=== PATIENT | female | born 1950 | race Caucasian/White ===

== ENCOUNTER 2016-09-08 15:36 | Inpatient (IN) | payer OTHER ==
[~2016-09-08] VITALS: Ht 165.1 cm; Wt 94.7 kg
[~2016-09-08 15:36] MED LIST: ACETAMINOPHEN-1 EAC1 PO; ADULT LOW DOSE81 M1 PO; ALDACTONE100 MG PO; ALEVE220 MG PO; AMARYL4 MG PO; AMLODIPINE BESY10 MG PO; AMLODIPINE BESYL5 MG PO; APRESOLINE100 MG PO; AUGMENTIN875 MG PO; CARAFATE1 GM PO; CEFDINIR300 MG PO; CENTRUM SILVER1 EAC3 PO; CORGARD20 MG PO; CYANOCOBALAM1000 MCG PO; Chronulac,Cephulac,E PO; DIABETES MED PO; DILAUDID2 MG PO; DYAZIDE, MA1 CAPSULE PO; Dyazide, Maxzide 37. PO; FEOSOL325 MG PO; FUROSEMIDE20 MG PO; Feosol PO; GLUCOPHAGE1000 MG PO; GLUCOPHAGE500 MG PO; HYDRALAZINE HCL25 MG PO; HYDROCHLOROTHIA25 MG PO; IRON27 MG PO; JANUVIA100 MG PO; KAYEXALATE15 GM/60 M PO; LACTULOSE10 GM/151 PO; LASIX20 MG PO; LEVEMIR FL100 UNIT/1 SC; LEVEMIR FL100 UNITS/ SC; LEVEMIR100 UNIT/2 SC; LEVOFLOXACIN500 MG PO; LEVOFLOXACIN750 MG PO; LEVOTHROID,SY0.05 MG PO; LEVOTHROID112 MCG PO; LEVOTHYROXINE112 MCG PO; LEVOTHYROXINE88 MCG PO; LISINOPRIL-HCT1 EACH PO; LISINOPRIL10 MG PO; LOPERAMIDE2 MG PO; LORTAB 5-325 M1 EACH PO; Levothroid,Synthroid PO; MOBIC15 MG PO; MOBIC7.5 MG PO; MULTIVITAMIN1 EAC1 PO; NADOLOL20 MG PO; NORVASC5 MG PO; OMEPRAZOLE40 M1 PO; PANTOPRAZOLE SO40 MG PO; PEPTO BISMOL240 ML PO; PRINZIDE 10-121 EACH PO; PROTONIX40 MG PO; SPIRONOLACTONE100 MG PO; SPIRONOLACTONE25 MG PO; SYNTHROID125 MCG PO; TRADJENTA5 MG PO; Theragran-M,Centrum, PO; Toprol XL PO; VITAMIN B-1250 MC3 PO; XIFAXAN550 MG PO; ZOCOR20 MG PO
[2016-09-08 16:50] LABS: HEMATOCRIT 26.5 % (36.0-46.0); MCH 24.1 PG (29.0-34.0); MCHC 31.3 G/DL (30.0-36.0); MCV 76.8 FL (83-99); MEAN PLAT.VOLUME 12.1 uM^3 (9.5-12.4); PLATELET COUNT 109 K/uL (156-360); RBC DIS.WIDTH-CV 16.2 % (11.8-14.6); RED BLOOD COUNT 3.45 M/uL (3.80-5.20)
[2016-09-08 17:07] LABS: CHLORIDE 109 mEq/L (99-109); SODIUM 133 mEq/L (136-147)
[2016-09-08 17:09] LABS: GLUCOSE 118 mg/dL (70-99)
[2016-09-08 17:11] LABS: ANION GAP 11 MEQ/L (2-14); TOTAL BILIRUBIN 0.9 mg/dL (0.0-1.0)
[2016-09-08 17:13] LABS: ALKALINE PHOSPHATASE 175 IU/L (3-129); GFR ESTIMATE (CALCULATED) 12 mL/min/
[2016-09-08 17:14] LABS: UREA NITROGEN (BUN) 63 mg/dL (9-23)
[2016-09-08 17:16] LABS: LIPASE 63 U/L (1.0-51.0)
[2016-09-08 17:44] LABS: POTASSIUM 6.5 mEq/L (3.7-5.4)
[2016-09-08 18:25] LABS: EOSINOPHIL (%) 1.3 % (0-5); IMMATURE GRANULOCYTE (%) 0.3 % (0.0-0.7); IMMATURE GRANULOCYTE COUNT 0.1 K/uL; LYMPHOCYTE COUNT 0.2 K/uL (1.0-2.8); MONOCYTE (%) 12.1 % (3-12); MONOCYTE COUNT 0.4 K/uL (0-0.8); NEUTROPHIL (%) 78.1 % (45-76); NEUTROPHIL COUNT 2.4 K/uL (1.8-6.4)
[2016-09-08 18:28] LABS: MAGNESIUM 2.9 mg/dL (1.3-2.7)
[2016-09-08 18:33] LABS: INTER. NORMALIZED RATIO 1.2; PROTHROMBIN TIME 12.2 (9.2-11.2); PTT 42.5 (25-32)
[2016-09-08] MEDS ORDERED: LASIX40 MG PO (20:51)
[2016-09-08 21:22] LABS: TYPE OF FLUID PERITONEAL
[2016-09-08 21:42] LABS: ADD MIUA? NO; BILIRUBIN NEGATIVE; BLOOD NEGATIVE; COLOR YELLOW ((YELLOW)); GLUCOSE (STRIP) NEGATIVE; KETONES NEGATIVE; LEUKOCYTES NEGATIVE; NITRITE NEGATIVE; PH, URINE 5.5 (5-8); PROTEIN (STRIP) NEGATIVE; SPECIFIC GRAVITY 1.013 (1.000-1.030); UCUL ADDED? NO; UROBILINOGEN 0.2 MG/DL (0.2-1.0)
[2016-09-08 21:43] LABS: BODY FLUID RBC'S 10000 /MM^3 (0-100); BODY FLUID WBC'S 153 /MM^3 (0-500)
[2016-09-08 21:54] LABS: BODY FLUID EOSINOPHILS 0 % (0-25); MONO RAW COUNT 77; MONONUCLEAR WBC'S 77 %; POLY RAW COUNT 23; POLYNUCLEAR WBC'S 23 % (0-25)
[2016-09-08 23:19] LABS: CHLORIDE 110 mEq/L (99-109); POTASSIUM 5.7 mEq/L (3.7-5.4); SODIUM 137 mEq/L (136-147)
[2016-09-08 23:20] LABS: MAGNESIUM 2.7 mg/dL (1.3-2.7)
[2016-09-08 23:21] LABS: GLUCOSE 112 mg/dL (70-99)
[2016-09-08 23:23] LABS: ANION GAP 11 MEQ/L (2-14)
[2016-09-08 23:25] LABS: GFR ESTIMATE (CALCULATED) 12 mL/min/
[2016-09-08 23:26] LABS: UREA NITROGEN (BUN) 61 mg/dL (9-23)
[2016-09-09] VITALS (13 sets, daily range): BP systolic 114–130; BP diastolic 47–64
[2016-09-09 07:21] LABS: HEMATOCRIT 22.3 % (36.0-46.0); MCH 24.2 PG (29.0-34.0); MCHC 31.4 G/DL (30.0-36.0); MCV 77.2 FL (83-99); MEAN PLAT.VOLUME 11.2 uM^3 (9.5-12.4); PLATELET COUNT 82 K/uL (156-360); RBC DIS.WIDTH-SD 42.7 % (39-53); RED BLOOD COUNT 2.89 M/uL (3.80-5.20); WHITE BLOOD COUNT 2.2 K/uL (4.1-10.2)
[2016-09-09 07:37] LABS: ANION GAP 9 MEQ/L (2-14); CHLORIDE 109 MEQ/L (99-109); GFR ESTIMATE (CALCULATED) 13 mL/min/; GLUCOSE 144 mg/dL (70-99); POTASSIUM 5.7 MEQ/L (3.7-5.4); SAMPLE HEMOLYSIS CHECK 0; SAMPLE ICTERIC CHECK 0; SAMPLE LIPEMIA CHECK 0; SODIUM 138 MEQ/L (136-147); UREA NITROGEN (BUN) 61 mg/dL (9-23)
[2016-09-09 14:22] LABS: HEMATOCRIT 22.1 % (36.0-46.0)
[2016-09-09 15:26] LABS: IRON 18 MCG/DL (35-150)
[2016-09-10] VITALS (8 sets, daily range): BP systolic 113–126; BP diastolic 51–64
[2016-09-10 07:47] LABS: MCH 24.8 PG (29.0-34.0); MCHC 31.7 G/DL (30.0-36.0); MCV 78.2 FL (83-99); MEAN PLAT.VOLUME 10.8 uM^3 (9.5-12.4); PLATELET COUNT 69 K/uL (156-360); RBC DIS.WIDTH-CV 16.7 % (11.8-14.6); RBC DIS.WIDTH-SD 47.9 % (39-53); RED BLOOD COUNT 3.07 M/uL (3.80-5.20); WHITE BLOOD COUNT 2.1 K/uL (4.1-10.2)
[2016-09-10 08:10] LABS: EOSINOPHIL (%) 2.3 % (0-5); EOSINOPHIL COUNT 0.1 K/uL (0-0.3); IMMATURE GRANULOCYTE (%) 0.5 % (0.0-0.7); LYMPHOCYTE COUNT 0.3 K/uL (1.0-2.8); MONOCYTE (%) 15.9 % (3-12); MONOCYTE COUNT 0.3 K/uL (0-0.8); NEUTROPHIL (%) 66.4 % (45-76); NEUTROPHIL COUNT 1.4 K/uL (1.8-6.4)
[2016-09-10 08:14] LABS: ALKALINE PHOSPHATASE 121 IU/L (3-129); ANION GAP 8 MEQ/L (2-14); CHLORIDE 109 MEQ/L (99-109); GFR ESTIMATE (CALCULATED) 15 mL/min/; GLUCOSE 115 mg/dL (70-99); POTASSIUM 4.8 MEQ/L (3.7-5.4); SAMPLE HEMOLYSIS CHECK 0; SAMPLE ICTERIC CHECK 0; SAMPLE LIPEMIA CHECK 0; SODIUM 138 MEQ/L (136-147); TOTAL BILIRUBIN 0.9 MG/DL (0.0-1.0); UREA NITROGEN (BUN) 56 mg/dL (9-23)
[2016-09-10 14:41] LABS: UR CREATININE CONCENTRATION 67.1 MG/DL
[2016-09-11 03:31] VITALS: BP 119/55
[2016-09-11 05:57] LABS: ANION GAP 10 MEQ/L (2-14); CHLORIDE 107 MEQ/L (99-109); GFR ESTIMATE (CALCULATED) 16 mL/min/; GLUCOSE 116 mg/dL (70-99); POTASSIUM 4.5 MEQ/L (3.7-5.4); SAMPLE HEMOLYSIS CHECK 0; SAMPLE ICTERIC CHECK 0; SAMPLE LIPEMIA CHECK 0; SODIUM 136 MEQ/L (136-147); UREA NITROGEN (BUN) 59 mg/dL (9-23)
[2016-09-11 07:32] LABS: EOSINOPHIL (%) 0.2 % (0-5); HEMATOCRIT 24.6 % (36.0-46.0); LYMPHOCYTE COUNT 0.1 K/uL (1.0-2.8); MCH 24.7 PG (29.0-34.0); MCHC 31.3 G/DL (30.0-36.0); MCV 78.8 FL (83-99); MONOCYTE (%) 5.4 % (3-12); MONOCYTE COUNT 0.3 K/uL (0-0.8); NEUTROPHIL (%) 91.8 % (45-76); NEUTROPHIL COUNT 4.9 K/uL (1.8-6.4); RBC DIS.WIDTH-CV 16.9 % (11.8-14.6); RBC DIS.WIDTH-SD 48.7 % (39-53); RED BLOOD COUNT 3.12 M/uL (3.80-5.20)
[2016-09-11 07:38] LABS: WHITE BLOOD COUNT 5.4 K/uL (4.1-10.2)
[2016-09-11 08:00] LABS: PLAT.SUFFICIENCY DECREASED; PLATELET COUNT 63 K/uL (156-360); USER ID SDF
[2016-09-11 08:15] VITALS: BP 114/53
[2016-09-11 11:30] VITALS: BP 126/57
[2016-09-11 14:04] LABS: TYPE OF FLUID PERITONEAL
[2016-09-11 14:17] LABS: BODY FLUID RBC'S 13000 /MM^3 (0-100)
[2016-09-11 14:28] LABS: BODY FLUID WBC'S 17034 /MM^3 (0-500)
[2016-09-11 14:38] LABS: BODY FLUID EOSINOPHILS 0 % (0-25); MONO RAW COUNT 3; MONONUCLEAR WBC'S 3 %; POLY RAW COUNT 97; POLYNUCLEAR WBC'S 97 % (0-25)
[2016-09-11 15:09] LABS: BODY FLUID LDH 104 IU/L; BODY FLUID PROTEIN < 3.0 G/DL
[2016-09-11 16:20] VITALS: BP 121/57
[2016-09-11 17:13] VITALS: BP 111/65
[2016-09-11 19:59] VITALS: BP 124/60
[2016-09-12] VITALS (8 sets, daily range): BP systolic 99–141; BP diastolic 53–66
[2016-09-12 06:37] LABS: ANION GAP 9 MEQ/L (2-14); CHLORIDE 106 MEQ/L (99-109); GFR ESTIMATE (CALCULATED) 17 mL/min/; GLUCOSE 105 mg/dL (70-99); POTASSIUM 4.4 MEQ/L (3.7-5.4); SAMPLE HEMOLYSIS CHECK 0; SAMPLE ICTERIC CHECK 0; SAMPLE LIPEMIA CHECK 0; SODIUM 134 MEQ/L (136-147); UREA NITROGEN (BUN) 64 mg/dL (9-23)
[2016-09-12 07:32] LABS: HEMATOCRIT 23.4 % (36.0-46.0); MCH 24.7 PG (29.0-34.0); MCHC 31.6 G/DL (30.0-36.0); MCV 78.3 FL (83-99); MEAN PLAT.VOLUME 11.8 uM^3 (9.5-12.4); PLATELET COUNT 64 K/uL (156-360); RBC DIS.WIDTH-CV 17.2 % (11.8-14.6); RBC DIS.WIDTH-SD 49.2 % (39-53); RED BLOOD COUNT 2.99 M/uL (3.80-5.20); WHITE BLOOD COUNT 4.5 K/uL (4.1-10.2)
[2016-09-12 07:34] LABS: EOSINOPHIL (%) 0.7 % (0-5); LYMPHOCYTE COUNT 0.4 K/uL (1.0-2.8); MONOCYTE (%) 5.5 % (3-12); MONOCYTE COUNT 0.3 K/uL (0-0.8); NEUTROPHIL (%) 85.6 % (45-76); NEUTROPHIL COUNT 3.9 K/uL (1.8-6.4)
[2016-09-13 04:00] VITALS: BP 111/61
[2016-09-13 04:50] LABS: BODY FLUID PH 7.5 (())
[2016-09-13 07:17] LABS: HEMATOCRIT 23.1 % (36.0-46.0); MCH 24.5 PG (29.0-34.0); MCHC 31.6 G/DL (30.0-36.0); MCV 77.5 FL (83-99); MEAN PLAT.VOLUME 10.9 uM^3 (9.5-12.4); PLATELET COUNT 66 K/uL (156-360); RBC DIS.WIDTH-CV 17.2 % (11.8-14.6); RBC DIS.WIDTH-SD 48.6 % (39-53); RED BLOOD COUNT 2.98 M/uL (3.80-5.20); WHITE BLOOD COUNT 3.9 K/uL (4.1-10.2)
[2016-09-13 07:29] VITALS: BP 110/57
[2016-09-13 07:39] LABS: ANION GAP 9 MEQ/L (2-14); CHLORIDE 104 MEQ/L (99-109); GFR ESTIMATE (CALCULATED) 19 mL/min/; GLUCOSE 108 mg/dL (70-99); POTASSIUM 4.5 MEQ/L (3.7-5.4); SAMPLE HEMOLYSIS CHECK 0; SAMPLE ICTERIC CHECK 0; SAMPLE LIPEMIA CHECK 0; SODIUM 132 MEQ/L (136-147); UREA NITROGEN (BUN) 66 mg/dL (9-23)
[2016-09-13 07:41] LABS: EOSINOPHIL (%) 1.6 % (0-5); EOSINOPHIL COUNT 0.1 K/uL (0-0.3); IMMATURE GRANULOCYTE (%) 0.3 % (0.0-0.7); LYMPHOCYTE COUNT 0.2 K/uL (1.0-2.8); MONOCYTE (%) 7.3 % (3-12); MONOCYTE COUNT 0.3 K/uL (0-0.8); NEUTROPHIL COUNT 3.3 K/uL (1.8-6.4)
[2016-09-13 11:25] VITALS: BP 103/50
[2016-09-13 15:31] VITALS: BP 138/66
[2016-09-13 18:50] VITALS: BP 137/63
[2016-09-13 23:10] VITALS: BP 122/60
[2016-09-14 03:25] VITALS: BP 125/60
[2016-09-14 08:04] LABS: EOSINOPHIL (%) 0.8 % (0-5); HEMATOCRIT 23.3 % (36.0-46.0); IMMATURE GRANULOCYTE (%) 0.6 % (0.0-0.7); LYMPHOCYTE COUNT 0.2 K/uL (1.0-2.8); MCH 24.6 PG (29.0-34.0); MCHC 31.8 G/DL (30.0-36.0); MCV 77.4 FL (83-99); MONOCYTE COUNT 0.5 K/uL (0-0.8); NEUTROPHIL (%) 79.9 % (45-76); NEUTROPHIL COUNT 2.9 K/uL (1.8-6.4); RBC DIS.WIDTH-CV 17.1 % (11.8-14.6); RED BLOOD COUNT 3.01 M/uL (3.80-5.20); WHITE BLOOD COUNT 3.6 K/uL (4.1-10.2)
[2016-09-14 08:08] VITALS: BP 112/54
[2016-09-14 08:08] LABS: PLAT.SUFFICIENCY DECREASED; PLATELET COUNT 65 K/uL (156-360); USER ID CL
[2016-09-14 08:10] LABS: ALKALINE PHOSPHATASE 169 IU/L (3-129); ANION GAP 8 MEQ/L (2-14); CHLORIDE 101 MEQ/L (99-109); GFR ESTIMATE (CALCULATED) 18 mL/min/; GLUCOSE 136 mg/dL (70-99); POTASSIUM 4.6 MEQ/L (3.7-5.4); SAMPLE HEMOLYSIS CHECK 0; SAMPLE ICTERIC CHECK 0; SAMPLE LIPEMIA CHECK 0; SODIUM 128 MEQ/L (136-147); UREA NITROGEN (BUN) 67 mg/dL (9-23)
[2016-09-14 12:00] VITALS: BP 142/65
[2016-09-14 16:00] VITALS: BP 122/58
[2016-09-14 20:10] VITALS: BP 139/63
[2016-09-14 23:20] VITALS: BP 106/53
[2016-09-15] VITALS (7 sets, daily range): BP systolic 116–141; BP diastolic 54–65
[2016-09-15 06:47] LABS: ALKALINE PHOSPHATASE 184 IU/L (3-129); ANION GAP 10 MEQ/L (2-14); CHLORIDE 103 MEQ/L (99-109); GFR ESTIMATE (CALCULATED) 17 mL/min/; GLUCOSE 137 mg/dL (70-99); POTASSIUM 4.7 MEQ/L (3.7-5.4); SAMPLE HEMOLYSIS CHECK 0; SAMPLE ICTERIC CHECK 0; SAMPLE LIPEMIA CHECK 0; SODIUM 131 MEQ/L (136-147); TOTAL BILIRUBIN 1.1 MG/DL (0.0-1.0); UREA NITROGEN (BUN) 71 mg/dL (9-23)
[2016-09-15 07:10] LABS: EOSINOPHIL (%) 1.1 % (0-5); HEMATOCRIT 22.3 % (36.0-46.0); IMMATURE GRANULOCYTE (%) 0.3 % (0.0-0.7); LYMPHOCYTE COUNT 0.5 K/uL (1.0-2.8); MCH 24.7 PG (29.0-34.0); MCHC 32.3 G/DL (30.0-36.0); MCV 76.4 FL (83-99); MONOCYTE (%) 11.7 % (3-12); MONOCYTE COUNT 0.4 K/uL (0-0.8); NEUTROPHIL (%) 73.6 % (45-76); NEUTROPHIL COUNT 2.7 K/uL (1.8-6.4); RBC DIS.WIDTH-CV 16.9 % (11.8-14.6); RBC DIS.WIDTH-SD 46.4 % (39-53); RED BLOOD COUNT 2.92 M/uL (3.80-5.20); WHITE BLOOD COUNT 3.7 K/uL (4.1-10.2)
[2016-09-15 07:37] LABS: PLAT.SUFFICIENCY DECREASED; PLATELET COUNT 59 K/uL (156-360); USER ID CL
[2016-09-15 09:47] LABS: TYPE OF FLUID PARACENTESIS
[2016-09-15 10:14] LABS: BODY FLUID RBC'S 9000 /MM^3 (0-100); BODY FLUID WBC'S 2276 /MM^3 (0-500)
[2016-09-15 10:36] LABS: BODY FLUID EOSINOPHILS 0 % (0-25); MONO RAW COUNT 14; MONONUCLEAR WBC'S 14 %; POLY RAW COUNT 86; POLYNUCLEAR WBC'S 86 % (0-25)
[2016-09-15 13:17] LABS: ADD MIUA? YES; BILIRUBIN SMALL; BLOOD NEGATIVE; COLOR DK YELLOW ((YELLOW)); GLUCOSE (STRIP) NEGATIVE; KETONES NEGATIVE; LEUKOCYTES NEGATIVE; NITRITE NEGATIVE; PROTEIN (STRIP) TRACE; SPECIFIC GRAVITY 1.014 (1.000-1.030); UROBILINOGEN 0.2 MG/DL (0.2-1.0)
[2016-09-15 13:22] LABS: BACTERIA NONE SEEN; CASTS NONE SEEN /LPF; CRYSTALS NONE SEEN; EPITHELIAL CELLS RARE; MUCUS NONE SEEN; PATHOLOGICAL CAST NONE SEEN; RED BLOOD CELLS 0-5 /HPF (0-5); SMALL ROUND CELL NONE SEEN; UCUL ADDED? NO; WHITE BLOOD CELLS 0-5 /HPF (0-5); YEAST-LIKE CELL NONE SEEN
[2016-09-16 03:28] VITALS: BP 126/58
[2016-09-16 06:45] LABS: HEMATOCRIT 23.4 % (36.0-46.0); MCH 24.3 PG (29.0-34.0); MCHC 31.6 G/DL (30.0-36.0); MEAN PLAT.VOLUME 11.6 uM^3 (9.5-12.4); PLATELET COUNT 66 K/uL (156-360); RBC DIS.WIDTH-SD 47.4 % (39-53); RED BLOOD COUNT 3.04 M/uL (3.80-5.20); WHITE BLOOD COUNT 4.3 K/uL (4.1-10.2)
[2016-09-16 07:06] LABS: EOSINOPHIL (%) 1.2 % (0-5); EOSINOPHIL COUNT 0.1 K/uL (0-0.3); IMMATURE GRANULOCYTE (%) 0.9 % (0.0-0.7); LYMPHOCYTE COUNT 0.4 K/uL (1.0-2.8); MONOCYTE (%) 7.7 % (3-12); MONOCYTE COUNT 0.3 K/uL (0-0.8); NEUTROPHIL (%) 80.5 % (45-76); NEUTROPHIL COUNT 3.5 K/uL (1.8-6.4)
[2016-09-16 08:52] VITALS: BP 134/64
[2016-09-16 09:03] LABS: ALKALINE PHOSPHATASE 206 IU/L (3-129); ANION GAP 8 MEQ/L (2-14); CHLORIDE 104 MEQ/L (99-109); GFR ESTIMATE (CALCULATED) 21 mL/min/; GLUCOSE 140 mg/dL (70-99); POTASSIUM 4.8 MEQ/L (3.7-5.4); SAMPLE HEMOLYSIS CHECK 0; SAMPLE ICTERIC CHECK 0; SAMPLE LIPEMIA CHECK 0; SODIUM 131 MEQ/L (136-147); TOTAL BILIRUBIN 1.1 MG/DL (0.0-1.0); UREA NITROGEN (BUN) 71 mg/dL (9-23)
[2016-09-16 11:22] VITALS: BP 130/66
[2016-09-16 15:37] VITALS: BP 110/62; BP 165/69
[2016-09-16 19:47] VITALS: BP 126/59
[2016-09-16 23:27] VITALS: BP 134/60
[2016-09-17 04:06] VITALS: BP 106/53
[2016-09-17 08:15] VITALS: BP 123/58
[2016-09-17 11:33] VITALS: BP 130/58
[2016-09-17 11:54] LABS: ANION GAP 13 MEQ/L (2-14); CHLORIDE 101 MEQ/L (99-109); GFR ESTIMATE (CALCULATED) 22 mL/min/; POTASSIUM 5.3 MEQ/L (3.7-5.4); SAMPLE HEMOLYSIS CHECK 0; SAMPLE ICTERIC CHECK 0; SAMPLE LIPEMIA CHECK 0; SODIUM 131 MEQ/L (136-147); UREA NITROGEN (BUN) 73 mg/dL (9-23)
[2016-09-17 11:56] LABS: GLUCOSE 264 mg/dL (70-99)
[2016-09-17 12:01] LABS: HEMATOCRIT 24.5 % (36.0-46.0); MCH 24.3 PG (29.0-34.0); MCHC 31.8 G/DL (30.0-36.0); MCV 76.3 FL (83-99); PLATELET COUNT 84 K/uL (156-360); RBC DIS.WIDTH-CV 17.1 % (11.8-14.6); RBC DIS.WIDTH-SD 46.7 % (39-53); RED BLOOD COUNT 3.21 M/uL (3.80-5.20)
[2016-09-17 12:04] LABS: WHITE BLOOD COUNT 5.7 K/uL (4.1-10.2)
[2016-09-17] MEDS ORDERED: AMLODIPINE BESYL5 MG PO (12:27)
[2016-09-17] MEDS ORDERED: SPIRONOLACTONE50 MG PO (12:27)
[2016-09-17] MEDS ORDERED: NABI650T PO (12:27)
[2016-09-17] MEDS ORDERED: ROCEPHIN1 GM/50 ML IV (12:28)
== END 2016-09-17 15:04 | disposition home or self-care (01) | DRG 433 ==
LOC: EME 15:36 → 2EAST 22:26 → EDOF 22:26 → 2EAST 23:57
PROVIDERS: Emergency Medicine; Hospitalist; Internal Medicine; Radiology Diagnostic Radiology; Specialist
PROC: 0W9G3ZZ Drainage of Peritoneal Cavity, Percutaneous Approach (ICD-10-PCS; principal; 2016-09-08)
PROC: 30233N1 Transfusion of Nonautologous Red Blood Cells into Peripheral Vein, Percutaneous Approach (ICD-10-PCS; 2016-09-09)
PROC: 0W9G3ZZ Drainage of Peritoneal Cavity, Percutaneous Approach (ICD-10-PCS; 2016-09-11)
PROC: 0W9G3ZZ Drainage of Peritoneal Cavity, Percutaneous Approach (ICD-10-PCS; 2016-09-15)
DX: K74.69 Other cirrhosis of liver (principal); R18.8 Other ascites; N17.9 Acute kidney failure, unspecified; D61.818 Other pancytopenia; E87.2 Acidosis; K76.6 Portal hypertension; D69.6 Thrombocytopenia, unspecified; E87.5 Hyperkalemia; I27.2 Other secondary pulmonary hypertension; E78.1 Pure hyperglyceridemia; N18.3 Chronic kidney disease, stage 3 (moderate); I12.9 Hypertensive chronic kidney disease with stage 1 through stage 4 chronic kidney disease, or unspecified chronic kidney disease; E11.9 Type 2 diabetes mellitus without complications; E03.9 Hypothyroidism, unspecified; K31.89 Other diseases of stomach and duodenum; K43.9 Ventral hernia without obstruction or gangrene; Z95.0 Presence of cardiac pacemaker
CPT/HCPCS: 36415; 71010; 74176; 76770; 80048; 80048 91; 80053; 80069; 81003; 82150 91; 82272; 82570; 82945; 82948; 83540; 83605; 83615 91; 83690; 83735; 83986 90; 84157; 84300; 84466; 84540; 85014; 85018; 85025; 85027; 85610; 85730; 86850; 86870; 86880; 86900; 86901; 86905; 86920; 87040; 87070; 87075; 87205; 88108; 89051; 93005; 94799; 99281; 99285; J0696; J1170; J1335; J1815; J7050; P9016; P9047

== ENCOUNTER 2016-09-21 14:45 | Inpatient (IN) | payer OTHER ==
[~2016-09-21] VITALS: Ht 165.1 cm; Wt 74.1 kg
[~2016-09-21 14:45] MED LIST changes: +LASIX40 MG PO; +NABI650T PO; +ROCEPHIN1 GM/50 ML IV; +SPIRONOLACTONE50 MG PO
[2016-09-21 15:24] LABS: HEMATOCRIT 22.8 % (36.0-46.0); MCH 24.6 PG (29.0-34.0); MCHC 32.5 G/DL (30.0-36.0); MCV 75.7 FL (83-99); RBC DIS.WIDTH-CV 17.7 % (11.8-14.6); RED BLOOD COUNT 3.01 M/uL (3.80-5.20); WHITE BLOOD COUNT 6.3 K/uL (4.1-10.2)
[2016-09-21 15:25] LABS: MEAN PLAT.VOLUME 11.8 uM^3 (9.5-12.4); PLATELET COUNT 115 K/uL (156-360)
[2016-09-21 15:32] LABS: CHLORIDE 105 mEq/L (99-109); POTASSIUM 5.9 mEq/L (3.7-5.4); SODIUM 130 mEq/L (136-147)
[2016-09-21 15:34] LABS: GLUCOSE 257 mg/dL (70-99)
[2016-09-21 15:35] LABS: INTER. NORMALIZED RATIO 1.2; PROTHROMBIN TIME 12.4 (9.2-11.2)
[2016-09-21 15:36] LABS: ANION GAP 10 MEQ/L (2-14); TOTAL BILIRUBIN 1.1 mg/dL (0.0-1.0)
[2016-09-21 15:38] LABS: ALKALINE PHOSPHATASE 296 IU/L (3-129); GFR ESTIMATE (CALCULATED) 19 mL/min/
[2016-09-21 15:39] LABS: UREA NITROGEN (BUN) 80 mg/dL (9-23)
[2016-09-21 15:41] LABS: LIPASE 72 U/L (1.0-51.0)
[2016-09-21 18:08] LABS: ADD MIUA? NO; BILIRUBIN NEGATIVE; BLOOD NEGATIVE; COLOR DK YELLOW ((YELLOW)); GLUCOSE (STRIP) NEGATIVE; KETONES NEGATIVE; LEUKOCYTES NEGATIVE; NITRITE NEGATIVE; PH, URINE 5.5 (5-8); PROTEIN (STRIP) TRACE; SPECIFIC GRAVITY 1.021 (1.000-1.030); UCUL ADDED? NO; UROBILINOGEN 0.2 MG/DL (0.2-1.0)
[2016-09-22] VITALS (14 sets, daily range): BP systolic 116–173; BP diastolic 56–75
[2016-09-22 07:23] LABS: ANION GAP 8 MEQ/L (2-14); CHLORIDE 103 MEQ/L (99-109); GFR ESTIMATE (CALCULATED) 22 mL/min/; GLUCOSE 169 mg/dL (70-99); POTASSIUM 6.1 MEQ/L (3.7-5.4); SAMPLE HEMOLYSIS CHECK 0; SAMPLE ICTERIC CHECK 0; SAMPLE LIPEMIA CHECK 0; SODIUM 128 MEQ/L (136-147); UREA NITROGEN (BUN) 77 mg/dL (9-23)
[2016-09-22 07:33] LABS: EOSINOPHIL (%) 1.1 % (0-5); EOSINOPHIL COUNT 0.1 K/uL (0-0.3); HEMATOCRIT 21.8 % (36.0-46.0); IMMATURE GRANULOCYTE (%) 0.3 % (0.0-0.7); LYMPHOCYTE COUNT 0.5 K/uL (1.0-2.8); MCH 24.4 PG (29.0-34.0); MCHC 32.1 G/DL (30.0-36.0); MCV 75.8 FL (83-99); MEAN PLAT.VOLUME 11.3 uM^3 (9.5-12.4); MONOCYTE (%) 4.1 % (3-12); MONOCYTE COUNT 0.3 K/uL (0-0.8); NEUTROPHIL (%) 88.1 % (45-76); NEUTROPHIL COUNT 6.7 K/uL (1.8-6.4); PLATELET COUNT 116 K/uL (156-360); RBC DIS.WIDTH-SD 49.4 % (39-53); RED BLOOD COUNT 2.87 M/uL (3.80-5.20); WHITE BLOOD COUNT 7.6 K/uL (4.1-10.2)
[2016-09-22] MEDS ORDERED: NABI650T PO (11:44)
[2016-09-22] MEDS ORDERED: ALDACTONE50 MG PO (11:44)
[2016-09-22] MEDS ORDERED: NORVASC5 MG PO (11:44)
[2016-09-22] MEDS ORDERED: ENULOSE10 GM/15 M PO (11:45)
[2016-09-22] MEDS ORDERED: CARAFATE100 MG/ML PO (11:45)
[2016-09-22] MEDS ORDERED: LASIX40 MG PO (11:46)
[2016-09-22] MEDS ORDERED: HYDRALAZINE HC100 MG PO (11:46)
[2016-09-22] MEDS ORDERED: XIFAXAN550 MG PO (11:47)
[2016-09-22] MEDS ORDERED: SYNTHROID88 MCG PO (11:47)
[2016-09-22] MEDS ORDERED: OMEPRAZOLE40 M1 PO (11:48)
[2016-09-22] MEDS ORDERED: METFORMIN HCL500 MG PO (12:00)
[2016-09-22 13:50] LABS: ANION GAP 9 MEQ/L (2-14); CHLORIDE 100 MEQ/L (99-109); GFR ESTIMATE (CALCULATED) 23 mL/min/; GLUCOSE 222 mg/dL (70-99); POTASSIUM 6.3 MEQ/L (3.7-5.4); SAMPLE HEMOLYSIS CHECK 0; SAMPLE ICTERIC CHECK 0; SAMPLE LIPEMIA CHECK 0; SODIUM 126 MEQ/L (136-147); UREA NITROGEN (BUN) 76 mg/dL (9-23)
[2016-09-22] MEDS ORDERED: LEVEMIR100 UNIT/2 SC (13:58)
[2016-09-22] MEDS ORDERED: TRADJENTA5 MG PO (13:59)
[2016-09-22 18:17] LABS: ANION GAP 11 MEQ/L (2-14); CHLORIDE 101 MEQ/L (99-109); POTASSIUM 5.6 MEQ/L (3.7-5.4); SAMPLE HEMOLYSIS CHECK 0; SAMPLE ICTERIC CHECK 0; SAMPLE LIPEMIA CHECK 0; SODIUM 129 MEQ/L (136-147)
[2016-09-22 18:22] LABS: GFR ESTIMATE (CALCULATED) 21 mL/min/; GLUCOSE 209 mg/dL (70-99); UREA NITROGEN (BUN) 80 mg/dL (9-23)
[2016-09-23] VITALS (11 sets, daily range): BP systolic 117–148; BP diastolic 52–84
[2016-09-23 06:42] LABS: HEMATOCRIT 22.4 % (36.0-46.0); MCH 24.2 PG (29.0-34.0); MCHC 32.1 G/DL (30.0-36.0); MCV 75.2 FL (83-99); MEAN PLAT.VOLUME 10.8 uM^3 (9.5-12.4); PLATELET COUNT 113 K/uL (156-360); RBC DIS.WIDTH-CV 17.7 % (11.8-14.6); RBC DIS.WIDTH-SD 48.6 % (39-53); RED BLOOD COUNT 2.98 M/uL (3.80-5.20); WHITE BLOOD COUNT 5.8 K/uL (4.1-10.2)
[2016-09-23 07:15] LABS: ALKALINE PHOSPHATASE 238 IU/L (3-129); ANION GAP 9 MEQ/L (2-14); CHLORIDE 101 MEQ/L (99-109); GFR ESTIMATE (CALCULATED) 20 mL/min/; GLUCOSE 166 mg/dL (70-99); POTASSIUM 4.6 MEQ/L (3.7-5.4); SAMPLE HEMOLYSIS CHECK 0; SAMPLE ICTERIC CHECK 0; SAMPLE LIPEMIA CHECK 0; SODIUM 130 MEQ/L (136-147); TOTAL BILIRUBIN 1.2 MG/DL (0.0-1.0); UREA NITROGEN (BUN) 74 mg/dL (9-23)
[2016-09-23 07:24] LABS: EOSINOPHIL (%) 1.2 % (0-5); EOSINOPHIL COUNT 0.1 K/uL (0-0.3); IMMATURE GRANULOCYTE (%) 0.3 % (0.0-0.7); LYMPHOCYTE COUNT 0.3 K/uL (1.0-2.8); MONOCYTE (%) 7.6 % (3-12); MONOCYTE COUNT 0.4 K/uL (0-0.8); NEUTROPHIL (%) 84.9 % (45-76); NEUTROPHIL COUNT 4.9 K/uL (1.8-6.4)
[2016-09-23 16:48] LABS: HEMATOCRIT 25.6 % (36.0-46.0)
[2016-09-24] VITALS: BP 145/68
[2016-09-24 04:00] VITALS: BP 118/55
[2016-09-24 05:49] LABS: ANION GAP 11 MEQ/L (2-14); CHLORIDE 101 MEQ/L (99-109); GFR ESTIMATE (CALCULATED) 21 mL/min/; GLUCOSE 159 mg/dL (70-99); POTASSIUM 4.6 MEQ/L (3.7-5.4); SAMPLE HEMOLYSIS CHECK 0; SAMPLE ICTERIC CHECK 0; SAMPLE LIPEMIA CHECK 0; SODIUM 132 MEQ/L (136-147); UREA NITROGEN (BUN) 69 mg/dL (9-23)
[2016-09-24 05:52] LABS: CARBON DIOXIDE (BICARBONATE) 21.9 MEQ/L (20-31)
[2016-09-24 08:03] VITALS: BP 108/52
[2016-09-24 11:37] VITALS: BP 126/56
[2016-09-24 16:10] VITALS: BP 130/57
[2016-09-24 19:40] VITALS: BP 130/60
[2016-09-25] VITALS (7 sets, daily range): BP systolic 120–135; BP diastolic 56–64
[2016-09-25 06:42] LABS: HEMATOCRIT 25.2 % (36.0-46.0); MCH 24.5 PG (29.0-34.0); MCHC 32.1 G/DL (30.0-36.0); MCV 76.4 FL (83-99); PLATELET COUNT 115 K/uL (156-360); RBC DIS.WIDTH-CV 18.4 % (11.8-14.6); RBC DIS.WIDTH-SD 51.4 % (39-53); WHITE BLOOD COUNT 4.1 K/uL (4.1-10.2)
[2016-09-25 07:06] LABS: ALKALINE PHOSPHATASE 185 IU/L (3-129); ANION GAP 10 MEQ/L (2-14); CHLORIDE 99 MEQ/L (99-109); GFR ESTIMATE (CALCULATED) 24 mL/min/; GLUCOSE 159 mg/dL (70-99); POTASSIUM 4.8 MEQ/L (3.7-5.4); SAMPLE HEMOLYSIS CHECK 0; SAMPLE ICTERIC CHECK 0; SAMPLE LIPEMIA CHECK 0; SODIUM 129 MEQ/L (136-147); TOTAL BILIRUBIN 1.2 MG/DL (0.0-1.0); UREA NITROGEN (BUN) 70 mg/dL (9-23)
[2016-09-25 08:00] LABS: POINT-OF-CARE METER ID UU14174225
[2016-09-25 11:40] LABS: POINT-OF-CARE METER ID UU14174225
[2016-09-25 21:18] LABS: POINT-OF-CARE METER ID UU14174225
[2016-09-26 03:41] VITALS: BP 130/63
[2016-09-26 04:45] LABS: MCH 24.7 PG (29.0-34.0); MCHC 32.4 G/DL (30.0-36.0); MCV 76.2 FL (83-99); MEAN PLAT.VOLUME 11.5 uM^3 (9.5-12.4); PLATELET COUNT 115 K/uL (156-360); RBC DIS.WIDTH-CV 18.6 % (11.8-14.6); RBC DIS.WIDTH-SD 48.6 % (39-53); RED BLOOD COUNT 3.28 M/uL (3.80-5.20); WHITE BLOOD COUNT 4.3 K/uL (4.1-10.2)
[2016-09-26 07:59] VITALS: BP 126/54
[2016-09-26 08:09] LABS: POINT-OF-CARE METER ID UU14174225
[2016-09-26 15:46] VITALS: BP 130/56
[2016-09-26 17:09] LABS: POINT-OF-CARE METER ID UU14174225
[2016-09-27 00:13] VITALS: BP 121/61
[2016-09-27 06:01] LABS: ANION GAP 11 MEQ/L (2-14); CHLORIDE 100 MEQ/L (99-109); GFR ESTIMATE (CALCULATED) 27 mL/min/; GLUCOSE 152 mg/dL (70-99); POTASSIUM 4.2 MEQ/L (3.7-5.4); SAMPLE HEMOLYSIS CHECK 0; SAMPLE ICTERIC CHECK 0; SAMPLE LIPEMIA CHECK 0; SODIUM 132 MEQ/L (136-147); UREA NITROGEN (BUN) 68 mg/dL (9-23); URIC ACID 12.4 mg/dL (3.1-9.2)
[2016-09-27 07:41] VITALS: BP 121/59
[2016-09-27 07:59] LABS: POINT-OF-CARE METER ID UU14174225
[2016-09-27 15:40] VITALS: BP 109/55
[2016-09-27] MEDS ORDERED: NABI650T PO (16:57)
[2016-09-27] MEDS ORDERED: AZITHROMYCIN500 M1 PO (16:58)
[2016-09-27] MEDS ORDERED: LASIX40 MG PO (16:58)
[2016-09-27 23:10] VITALS: BP 129/65
[2016-09-28 07:02] LABS: ANION GAP 10 MEQ/L (2-14); CHLORIDE 99 MEQ/L (99-109); GFR ESTIMATE (CALCULATED) 28 mL/min/; GLUCOSE 217 mg/dL (70-99); POTASSIUM 4.3 MEQ/L (3.7-5.4); SAMPLE HEMOLYSIS CHECK 0; SAMPLE ICTERIC CHECK 0; SAMPLE LIPEMIA CHECK 0; SODIUM 130 MEQ/L (136-147); UREA NITROGEN (BUN) 71 mg/dL (9-23)
[2016-09-28 07:52] LABS: MCH 24.4 PG (29.0-34.0); MCV 76.2 FL (83-99); RBC DIS.WIDTH-CV 18.6 % (11.8-14.6); RBC DIS.WIDTH-SD 51.8 % (39-53); RED BLOOD COUNT 3.28 M/uL (3.80-5.20)
[2016-09-28 07:54] VITALS: BP 135/66
[2016-09-28 08:05] LABS: MEAN PLAT.VOLUME 10.3 uM^3 (9.5-12.4); PLATELET COUNT 88 K/uL (156-360)
[2016-09-28 15:23] VITALS: BP 121/62
[2016-09-28 23:57] VITALS: BP 124/58
[2016-09-29 05:36] LABS: ANION GAP 12 MEQ/L (2-14); CHLORIDE 99 MEQ/L (99-109); GFR ESTIMATE (CALCULATED) 27 mL/min/; GLUCOSE 227 mg/dL (70-99); POTASSIUM 4.7 MEQ/L (3.7-5.4); SAMPLE HEMOLYSIS CHECK 0; SAMPLE ICTERIC CHECK 0; SAMPLE LIPEMIA CHECK 0; SODIUM 131 MEQ/L (136-147); UREA NITROGEN (BUN) 70 mg/dL (9-23)
[2016-09-29 08:01] VITALS: BP 129/65
[2016-09-29 10:32] LABS: HEMATOCRIT 24.9 % (36.0-46.0); MCHC 32.5 G/DL (30.0-36.0); MCV 76.9 FL (83-99); MEAN PLAT.VOLUME 11.8 uM^3 (9.5-12.4); PLATELET COUNT 91 K/uL (156-360); RBC DIS.WIDTH-CV 18.5 % (11.8-14.6); RBC DIS.WIDTH-SD 52.1 % (39-53); RED BLOOD COUNT 3.24 M/uL (3.80-5.20); WHITE BLOOD COUNT 4.2 K/uL (4.1-10.2)
[2016-09-29 15:31] VITALS: BP 118/65
[2016-09-30 00:09] VITALS: BP 138/64
[2016-09-30 05:55] LABS: ANION GAP 14 MEQ/L (2-14); CHLORIDE 98 MEQ/L (99-109); GFR ESTIMATE (CALCULATED) 30 mL/min/; GLUCOSE 221 mg/dL (70-99); POTASSIUM 4.2 MEQ/L (3.7-5.4); SAMPLE HEMOLYSIS CHECK 0; SAMPLE ICTERIC CHECK 0; SAMPLE LIPEMIA CHECK 0; SODIUM 132 MEQ/L (136-147); UREA NITROGEN (BUN) 72 mg/dL (9-23)
[2016-09-30 07:07] VITALS: BP 119/59
[2016-09-30 15:25] VITALS: BP 123/58
[2016-10-01 00:15] VITALS: BP 135/66
[2016-10-01 07:04] LABS: HEMATOCRIT 23.4 % (36.0-46.0); MCH 24.7 PG (29.0-34.0); MCHC 31.6 G/DL (30.0-36.0); MEAN PLAT.VOLUME 10.9 uM^3 (9.5-12.4); PLATELET COUNT 66 K/uL (156-360); RBC DIS.WIDTH-CV 18.7 % (11.8-14.6); RBC DIS.WIDTH-SD 53.6 % (39-53)
[2016-10-01 07:31] LABS: ANION GAP 8 MEQ/L (2-14); CHLORIDE 103 MEQ/L (99-109); GFR ESTIMATE (CALCULATED) 30 mL/min/; GLUCOSE 245 mg/dL (70-99); POTASSIUM 4.7 MEQ/L (3.7-5.4); SAMPLE HEMOLYSIS CHECK 0; SAMPLE ICTERIC CHECK 0; SAMPLE LIPEMIA CHECK 0; SODIUM 135 MEQ/L (136-147); UREA NITROGEN (BUN) 72 mg/dL (9-23)
[2016-10-01 08:38] VITALS: BP 130/67
[2016-10-01 16:22] VITALS: BP 137/67
[2016-10-01 16:48] VITALS: BP 137/67
== END 2016-10-01 17:10 | disposition short-term general hospital (02) | DRG 433 ==
LOC: EME 14:45 → 5WEST 22:10 → EDOF 22:10 → 5WEST 23:49 → 5SOUTH 09-22 09:08
PROVIDERS: Emergency Medicine; Hospitalist; Internal Medicine; Internal Medicine Gastroenterology; Internal Medicine Nephrology; Nurse Practitioner Adult Health
PROC: 30233N1 Transfusion of Nonautologous Red Blood Cells into Peripheral Vein, Percutaneous Approach (ICD-10-PCS; 2016-09-22)
PROC: 0W9G3ZZ Drainage of Peritoneal Cavity, Percutaneous Approach (ICD-10-PCS; principal; 2016-09-23)
PROC: 0W9G3ZZ Drainage of Peritoneal Cavity, Percutaneous Approach (ICD-10-PCS; 2016-09-30)
DX: K74.69 Other cirrhosis of liver (principal); R18.8 Other ascites; I85.10 Secondary esophageal varices without bleeding; K31.89 Other diseases of stomach and duodenum; E87.1 Hypo-osmolality and hyponatremia; I13.0 Hypertensive heart and chronic kidney disease with heart failure and stage 1 through stage 4 chronic kidney disease, or unspecified chronic kidney disease; I50.32 Chronic diastolic (congestive) heart failure; E11.22 Type 2 diabetes mellitus with diabetic chronic kidney disease; N18.4 Chronic kidney disease, stage 4 (severe); J44.1 Chronic obstructive pulmonary disease with (acute) exacerbation; E87.2 Acidosis; D63.1 Anemia in chronic kidney disease; D69.6 Thrombocytopenia, unspecified; I27.2 Other secondary pulmonary hypertension; E87.5 Hyperkalemia; T50.0X5A Adverse effect of mineralocorticoids and their antagonists, initial encounter; E03.9 Hypothyroidism, unspecified; K72.90 Hepatic failure, unspecified without coma; D50.9 Iron deficiency anemia, unspecified; K21.9 Gastro-esophageal reflux disease without esophagitis; E78.5 Hyperlipidemia, unspecified; K43.9 Ventral hernia without obstruction or gangrene; Z91.041 Radiographic dye allergy status; Z88.2 Allergy status to sulfonamides; Z88.5 Allergy status to narcotic agent; Z95.0 Presence of cardiac pacemaker; I25.2 Old myocardial infarction; Z85.3 Personal history of malignant neoplasm of breast; Z85.028 Personal history of other malignant neoplasm of stomach
CPT/HCPCS: 36415; 71010; 71020; 80048; 80048 91; 80053; 80069; 81003; 82239 90; 82272; 82803; 82948; 83690; 83735; 84100; 84550; 84630 90; 85014; 85018; 85025; 85027; 85610; 86850; 86860; 86870; 86880; 86900; 86901; 86905; 86920; 87040; 93005; 99281; 99285; C9113; G0378; J0696; J0881; J1170; J1756; J1815; J1940; J2270; J7050; J7512; P9016; P9047

== ENCOUNTER 2016-10-21 08:20 | Emergency (ER) | payer OTHER ==
[~2016-10-21] VITALS: Ht 165.1 cm; Wt 78.4 kg
[~2016-10-21 08:20] MED LIST changes: +ALDACTONE50 MG PO; +AZITHROMYCIN500 M1 PO; +CARAFATE100 MG/ML PO; +ENULOSE10 GM/15 M PO; +HYDRALAZINE HC100 MG PO; +METFORMIN HCL500 MG PO; +SYNTHROID88 MCG PO
[2016-10-21 09:10] LABS: INTER. NORMALIZED RATIO 1.3; PROTHROMBIN TIME 13.1 (9.2-11.2)
[2016-10-21 09:33] LABS: CHLORIDE 102 mEq/L (99-109); POTASSIUM 4.1 mEq/L (3.7-5.4); SODIUM 135 mEq/L (136-147)
[2016-10-21 09:36] LABS: ANION GAP 13 MEQ/L (2-14)
[2016-10-21 09:45] LABS: MCH 24.3 PG (29.0-34.0); MCHC 30.8 G/DL (30.0-36.0); MCV 78.9 FL (83-99); PLATELET COUNT 81 K/uL (156-360); RBC DIS.WIDTH-CV 21.7 % (11.8-14.6); RBC DIS.WIDTH-SD 59.9 % (39-53); RED BLOOD COUNT 3.04 M/uL (3.80-5.20); WHITE BLOOD COUNT 3.7 K/uL (4.1-10.2)
[2016-10-21 10:16] LABS: GLUCOSE 210 mg/dL (70-99)
[2016-10-21 10:18] LABS: TOTAL BILIRUBIN 1.5 mg/dL (0.0-1.0)
[2016-10-21 10:19] LABS: ALKALINE PHOSPHATASE 269 IU/L (3-129)
[2016-10-21 10:20] LABS: GFR ESTIMATE (CALCULATED) 21 mL/min/
[2016-10-21 10:21] LABS: UREA NITROGEN (BUN) 60 mg/dL (9-23)
[2016-10-21 10:22] LABS: DIRECT BILIRUBIN 0.8 mg/dL (0.0-0.3)
[2016-10-21 10:23] LABS: LIPASE 16 U/L (1.0-51.0)
[2016-10-21] MEDS ORDERED: TRAMADOL HCL50 MG PO (21:36)
[2016-10-21 21:58] VITALS: BP 123/67
[2016-10-22] MEDS ORDERED: LASIX80 MG PO (19:53)
[2016-10-22] MEDS ORDERED: CIPRO500 MG PO (19:56)
[2016-10-22] MEDS ORDERED: VITAMIN D400 UNIT PO (19:57)
[2016-10-22] MEDS ORDERED: VITAMIN B125000 MCG PO (19:57)
[2016-10-22] MEDS ORDERED: SPIRIVA1 INHALATI IH (19:58)
[2016-10-22] MEDS ORDERED: ZINC SULFATE220 M1 PO (19:59)
== END 2016-10-21 22:04 | disposition home or self-care (01) ==
LOC: EME 08:20
PROVIDERS: Emergency Medicine
PROC: 0W9G3ZZ Drainage of Peritoneal Cavity, Percutaneous Approach (ICD-10-PCS; principal; 2016-10-21)
DX: R18.8 Other ascites (principal); K74.60 Unspecified cirrhosis of liver; R10.9 Unspecified abdominal pain; E11.9 Type 2 diabetes mellitus without complications; E78.5 Hyperlipidemia, unspecified; I10 Essential (primary) hypertension; Z87.442 Personal history of urinary calculi; I25.2 Old myocardial infarction; K21.9 Gastro-esophageal reflux disease without esophagitis; Z79.4 Long term (current) use of insulin; Z87.891 Personal history of nicotine dependence
CPT/HCPCS: 71020; 80048; 80076; 82140; 83690; 85027; 85610; 87070; 87075; 87186; 87205; 99281; 99285

== ENCOUNTER 2016-10-22 16:28 | Inpatient (IN) | payer OTHER ==
[~2016-10-22] VITALS: Ht 165.1 cm; Wt 75.8 kg
[~2016-10-22 16:28] MED LIST changes: +TRAMADOL HCL50 MG PO
[2016-10-22 17:18] LABS: EOSINOPHIL (%) 0 % (0-5); HEMATOCRIT 19.7 % (36.0-46.0); IMMATURE GRANULOCYTE (%) 0.3 % (0.0-0.7); IMMATURE GRANULOCYTE COUNT 0.1 K/uL; LYMPHOCYTE COUNT 0.3 K/uL (1.0-2.8); MCH 24.6 PG (29.0-34.0); MEAN PLAT.VOLUME 10.4 uM^3 (9.5-12.4); MONOCYTE (%) 10.9 % (3-12); MONOCYTE COUNT 0.4 K/uL (0-0.8); NEUTROPHIL (%) 81.3 % (45-76); NEUTROPHIL COUNT 2.9 K/uL (1.8-6.4); PLATELET COUNT 88 K/uL (156-360); RBC DIS.WIDTH-CV 20.9 % (11.8-14.6); RBC DIS.WIDTH-SD 55.6 % (39-53); RED BLOOD COUNT 2.56 M/uL (3.80-5.20); WHITE BLOOD COUNT 3.6 K/uL (4.1-10.2)
[2016-10-22 17:29] LABS: CHLORIDE 98 mEq/L (99-109); POTASSIUM 4.5 mEq/L (3.7-5.4); SODIUM 132 mEq/L (136-147)
[2016-10-22 17:31] LABS: GLUCOSE 252 mg/dL (70-99)
[2016-10-22 17:32] LABS: ANION GAP 15 MEQ/L (2-14)
[2016-10-22 17:33] LABS: TOTAL BILIRUBIN 1.4 mg/dL (0.0-1.0)
[2016-10-22 17:34] LABS: ALKALINE PHOSPHATASE 194 IU/L (3-129)
[2016-10-22 17:35] LABS: GFR ESTIMATE (CALCULATED) 16 mL/min/
[2016-10-22 17:36] LABS: UREA NITROGEN (BUN) 72 mg/dL (9-23)
[2016-10-22 17:38] LABS: LIPASE 30 U/L (1.0-51.0)
[2016-10-22 18:15] LABS: TROP-I INTERPRETATION NEGATIVE; TROPONIN-I 0.03 ng/mL (0.0-0.30)
[2016-10-22 19:22] VITALS: BP 123/68
[2016-10-22 19:35] VITALS: BP 117/65
[2016-10-22] MEDS ORDERED: LASIX80 MG PO (19:53)
[2016-10-22] MEDS ORDERED: CIPRO500 MG PO (19:56)
[2016-10-22] MEDS ORDERED: VITAMIN D400 UNIT PO (19:57)
[2016-10-22] MEDS ORDERED: VITAMIN B125000 MCG PO (19:57)
[2016-10-22] MEDS ORDERED: SPIRIVA1 INHALATI IH (19:58)
[2016-10-22] MEDS ORDERED: ZINC SULFATE220 M1 PO (19:59)
[2016-10-22 20:25] VITALS: BP 122/65
[2016-10-22 20:55] VITALS: BP 127/70
[2016-10-22 21:15] VITALS: BP 123/55
[2016-10-23] VITALS: BP 126/62
[2016-10-23 04:00] VITALS: BP 128/58
[2016-10-23 06:02] LABS: EOSINOPHIL (%) 0.6 % (0-5); IMMATURE GRANULOCYTE (%) 0.3 % (0.0-0.7); LYMPHOCYTE COUNT 0.3 K/uL (1.0-2.8); MONOCYTE COUNT 0.5 K/uL (0-0.8); NEUTROPHIL (%) 76.9 % (45-76); NEUTROPHIL COUNT 2.7 K/uL (1.8-6.4)
[2016-10-23 06:07] LABS: HEMATOCRIT 21.1 % (36.0-46.0); MCH 25.3 PG (29.0-34.0); MCHC 33.2 G/DL (30.0-36.0); MCV 76.2 FL (83-99); RBC DIS.WIDTH-CV 20.1 % (11.8-14.6); RBC DIS.WIDTH-SD 56.1 % (39-53); RED BLOOD COUNT 2.77 M/uL (3.80-5.20); WHITE BLOOD COUNT 3.5 K/uL (4.1-10.2)
[2016-10-23 06:16] LABS: ANION GAP 17 MEQ/L (2-14); CHLORIDE 95 MEQ/L (99-109); GFR ESTIMATE (CALCULATED) 15 mL/min/; GLUCOSE 144 mg/dL (70-99); POTASSIUM 4.3 MEQ/L (3.7-5.4); SAMPLE HEMOLYSIS CHECK 0; SAMPLE ICTERIC CHECK 0; SAMPLE LIPEMIA CHECK 0; SODIUM 131 MEQ/L (136-147); UREA NITROGEN (BUN) 76 mg/dL (9-23)
[2016-10-23 06:30] LABS: POINT-OF-CARE METER ID UU14188577
[2016-10-23 06:34] LABS: PLAT.SUFFICIENCY DECREASED; USER ID SLU
[2016-10-23 06:35] LABS: MEAN PLAT.VOLUME 11.3 uM^3 (9.5-12.4); PLATELET COUNT 105 K/uL (156-360)
[2016-10-23 08:40] VITALS: BP 133/61
[2016-10-23 12:14] LABS: POINT-OF-CARE METER ID UU14188577
[2016-10-23 16:09] LABS: POINT-OF-CARE METER ID UU14188577
[2016-10-23 16:34] VITALS: BP 129/61
[2016-10-23 18:40] LABS: ADD MIUA? NO; BILIRUBIN NEGATIVE; BLOOD NEGATIVE; COLOR YELLOW ((YELLOW)); GLUCOSE (STRIP) NEGATIVE; KETONES NEGATIVE; LEUKOCYTES NEGATIVE; NITRITE NEGATIVE; PROTEIN (STRIP) NEGATIVE; UCUL ADDED? NO; UROBILINOGEN 0.2 MG/DL (0.2-1.0)
[2016-10-23 18:55] LABS: UR CREATININE CONCENTRATION 80.1 MG/DL; UR CREATININE CONCENTRATION 81.4 MG/DL
[2016-10-23 19:32] VITALS: BP 131/60
[2016-10-23 20:06] LABS: C DIFF TOXIN NEGATIVE (NEGATIVE)
[2016-10-23 20:13] LABS: PROBE CHECK PASS; SPECIMEN PROCESSING CONTROL PASS
[2016-10-23 22:40] LABS: POINT-OF-CARE METER ID UU14188577
[2016-10-23 22:50] LABS: TYPE OF FLUID PARACENTESIS
[2016-10-23 23:09] VITALS: BP 121/56
[2016-10-24] VITALS (7 sets, daily range): BP systolic 108–130; BP diastolic 54–64
[2016-10-24 00:07] LABS: BODY FLUID RBC'S 75125 /MM^3 (0-100); BODY FLUID WBC'S 1750 /MM^3 (0-500); RED CELL AREA COUNTED 0.4; RED CELL DILUTION 5; WBC AREA COUNTED 0.4; WBC DILUTION 5; WHITE CELL RAW COUNT 14
[2016-10-24 00:13] LABS: BODY FLUID EOSINOPHILS 0 % (0-25); MONO RAW COUNT 6; MONONUCLEAR WBC'S 6 %; POLY RAW COUNT 94; POLYNUCLEAR WBC'S 94 % (0-25)
[2016-10-24 06:27] LABS: ANION GAP 12 MEQ/L (2-14); CHLORIDE 96 MEQ/L (99-109); GFR ESTIMATE (CALCULATED) 15 mL/min/; MAGNESIUM 2.1 mg/dl (1.3-2.7); POTASSIUM 4.1 MEQ/L (3.7-5.4); SAMPLE HEMOLYSIS CHECK 0; SAMPLE ICTERIC CHECK 0; SAMPLE LIPEMIA CHECK 0; SODIUM 131 MEQ/L (136-147); UREA NITROGEN (BUN) 76 mg/dL (9-23)
[2016-10-24 06:31] LABS: GLUCOSE 101 mg/dL (70-99)
[2016-10-24 07:09] LABS: HEMATOCRIT 17.5 % (36.0-46.0); MCH 24.5 PG (29.0-34.0); MCV 76.4 FL (83-99); MEAN PLAT.VOLUME 10.7 uM^3 (9.5-12.4); RBC DIS.WIDTH-CV 19.9 % (11.8-14.6); RBC DIS.WIDTH-SD 55.9 % (39-53); RED BLOOD COUNT 2.29 M/uL (3.80-5.20)
[2016-10-24 07:15] LABS: WHITE BLOOD COUNT 2.1 K/uL (4.1-10.2)
[2016-10-24 08:07] LABS: PLATELET COUNT 62 K/uL (156-360)
[2016-10-24 09:23] LABS: INTER. NORMALIZED RATIO 1.4; PROTHROMBIN TIME 13.9 (9.2-11.2)
[2016-10-24 11:21] LABS: POINT-OF-CARE METER ID UU14149397
[2016-10-24] MEDS ORDERED: LEVOFLOXAC250 MG/50 IV (16:54)
== END 2016-10-24 17:30 | disposition short-term general hospital (02) | DRG 441 ==
LOC: EME 16:28 → EDOF 21:03 → 3EAST 22:50
PROVIDERS: Emergency Medicine; Hospitalist; Internal Medicine; Internal Medicine Nephrology
PROC: 30233N1 Transfusion of Nonautologous Red Blood Cells into Peripheral Vein, Percutaneous Approach (ICD-10-PCS; principal; 2016-10-22)
PROC: 0W9G3ZZ Drainage of Peritoneal Cavity, Percutaneous Approach (ICD-10-PCS; 2016-10-23)
DX: K76.7 Hepatorenal syndrome (principal); N17.0 Acute kidney failure with tubular necrosis; K65.2 Spontaneous bacterial peritonitis; K66.1 Hemoperitoneum; D62 Acute posthemorrhagic anemia; I13.0 Hypertensive heart and chronic kidney disease with heart failure and stage 1 through stage 4 chronic kidney disease, or unspecified chronic kidney disease; I50.32 Chronic diastolic (congestive) heart failure; E11.22 Type 2 diabetes mellitus with diabetic chronic kidney disease; N18.4 Chronic kidney disease, stage 4 (severe); K74.69 Other cirrhosis of liver; I85.10 Secondary esophageal varices without bleeding; R18.8 Other ascites; K76.6 Portal hypertension; K31.89 Other diseases of stomach and duodenum; Z88.5 Allergy status to narcotic agent; Z91.041 Radiographic dye allergy status; Z85.3 Personal history of malignant neoplasm of breast; Z85.028 Personal history of other malignant neoplasm of stomach; Z79.4 Long term (current) use of insulin; Z87.891 Personal history of nicotine dependence
CPT/HCPCS: 71020; 76770; 80048; 80053; 81003; 82570; 82948; 83690; 83735; 84156; 84300; 84484; 85025; 85027; 85610; 86850; 86860; 86870; 86880; 86900; 86901; 86905; 86920; 87040; 87070; 87075; 87205; 87493; 89051; 93005; 94640; 94640 76; 99202; 99281; 99285; J1170; J1815; J1940; J1956; P9016; P9047; S0028

== ENCOUNTER 2016-11-08 15:31 | Observation (INO) | payer OTHER ==
[~2016-11-08] VITALS: Ht 165.1 cm; Wt 72.4 kg
[~2016-11-08 15:31] MED LIST changes: +CIPRO500 MG PO; +LASIX80 MG PO; +LEVOFLOXAC250 MG/50 IV; +SPIRIVA1 INHALATI IH; +VITAMIN B125000 MCG PO; +VITAMIN D400 UNIT PO; +ZINC SULFATE220 M1 PO
[2016-11-08 16:26] LABS: HEMATOCRIT 23.6 % (36.0-46.0); MCH 25.2 PG (29.0-34.0); MCHC 30.5 G/DL (30.0-36.0); MEAN PLAT.VOLUME 10.3 uM^3 (9.5-12.4); RBC DIS.WIDTH-SD 56.8 % (39-53)
[2016-11-08 16:33] LABS: MCV 82.5 FL (83-99); PLATELET COUNT 82 K/uL (156-360); RED BLOOD COUNT 2.86 M/uL (3.80-5.20); WHITE BLOOD COUNT 4.3 K/uL (4.1-10.2)
[2016-11-08 16:37] LABS: CHLORIDE 107 mEq/L (99-109); POTASSIUM 5.4 mEq/L (3.7-5.4); SODIUM 137 mEq/L (136-147)
[2016-11-08 16:39] LABS: GLUCOSE 175 mg/dL (70-99)
[2016-11-08 16:40] LABS: ANION GAP 9 MEQ/L (2-14)
[2016-11-08 16:43] LABS: GFR ESTIMATE (CALCULATED) 27 mL/min/
[2016-11-08 16:44] LABS: UREA NITROGEN (BUN) 63 mg/dL (9-23)
[2016-11-08] MEDS ORDERED: FUROSEMIDE40 MG PO (21:24)
[2016-11-08] MEDS ORDERED: SPIRONOLACTONE100 MG PO (21:25)
[2016-11-08] MEDS ORDERED: TRADJENTA5 MG PO (21:25)
[2016-11-08] MEDS ORDERED: TRAMADOL HCL50 MG PO (21:26)
[2016-11-08] MEDS ORDERED: CENTRUM SILVER1 EAC3 PO (21:28)
[2016-11-08 21:57] VITALS: BP 141/74
[2016-11-08 22:15] VITALS: BP 146/75
[2016-11-08 22:48] VITALS: BP 143/65
[2016-11-08 23:15] VITALS: BP 142/60
[2016-11-09 03:56] VITALS: BP 132/60
[2016-11-09 07:28] VITALS: BP 148/75
[2016-11-09 09:07] LABS: ALKALINE PHOSPHATASE 236 IU/L (3-129); ANION GAP 10 MEQ/L (2-14); CHLORIDE 106 MEQ/L (99-109); GFR ESTIMATE (CALCULATED) 32 mL/min/; GLUCOSE 133 mg/dL (70-99); POTASSIUM 5.2 MEQ/L (3.7-5.4); SAMPLE HEMOLYSIS CHECK 0; SAMPLE ICTERIC CHECK 0; SAMPLE LIPEMIA CHECK 0; SODIUM 136 MEQ/L (136-147); TOTAL BILIRUBIN 1.9 MG/DL (0.0-1.0); UREA NITROGEN (BUN) 57 mg/dL (9-23)
[2016-11-09 10:38] LABS: HEMATOCRIT 23.1 % (36.0-46.0); MCH 25.4 PG (29.0-34.0); MCHC 30.7 G/DL (30.0-36.0); MCV 82.8 FL (83-99); MEAN PLAT.VOLUME 11.4 uM^3 (9.5-12.4); PLATELET COUNT 78 K/uL (156-360); RBC DIS.WIDTH-CV 18.7 % (11.8-14.6); RBC DIS.WIDTH-SD 55.7 % (39-53); RED BLOOD COUNT 2.79 M/uL (3.80-5.20); WHITE BLOOD COUNT 4.2 K/uL (4.1-10.2)
[2016-11-09 11:30] LABS: EOSINOPHIL (%) 1.5 % (0-5); EOSINOPHIL COUNT 0.1 K/uL (0-0.3); HEMATOCRIT 24.1 % (36.0-46.0); IMMATURE GRANULOCYTE (%) 0.8 % (0.0-0.7); LYMPHOCYTE COUNT 0.3 K/uL (1.0-2.8); MCH 25.7 PG (29.0-34.0); MCHC 30.7 G/DL (30.0-36.0); MCV 83.7 FL (83-99); MEAN PLAT.VOLUME 11.1 uM^3 (9.5-12.4); MONOCYTE (%) 7.9 % (3-12); MONOCYTE COUNT 0.4 K/uL (0-0.8); NEUTROPHIL (%) 83.6 % (45-76); PLATELET COUNT 82 K/uL (156-360); RBC DIS.WIDTH-CV 18.7 % (11.8-14.6); RBC DIS.WIDTH-SD 56.6 % (39-53); RED BLOOD COUNT 2.88 M/uL (3.80-5.20); WHITE BLOOD COUNT 4.8 K/uL (4.1-10.2)
[2016-11-09 12:34] VITALS: BP 143/65
[2016-11-09 12:37] LABS: POINT-OF-CARE METER ID UU14162513
[2016-11-09 16:46] VITALS: BP 151/59
[2016-11-09 17:59] LABS: POINT-OF-CARE METER ID UU14162513
[2016-11-09 19:00] VITALS: BP 128/60
[2016-11-09 23:50] VITALS: BP 149/69
[2016-11-10] VITALS (8 sets, daily range): BP systolic 127–144; BP diastolic 58–70
[2016-11-10 08:33] LABS: POINT-OF-CARE METER ID UU13113831
[2016-11-10 12:34] LABS: POINT-OF-CARE METER ID UU13113831
[2016-11-10 12:50] LABS: MCHC 30.9 G/DL (30.0-36.0); MCV 84.2 FL (83-99); MEAN PLAT.VOLUME 11.5 uM^3 (9.5-12.4); PLATELET COUNT 80 K/uL (156-360); RBC DIS.WIDTH-CV 19.2 % (11.8-14.6); RBC DIS.WIDTH-SD 57.7 % (39-53); RED BLOOD COUNT 2.73 M/uL (3.80-5.20); WHITE BLOOD COUNT 4.1 K/uL (4.1-10.2)
[2016-11-10 17:40] LABS: POINT-OF-CARE METER ID UU13113831
[2016-11-10] MEDS ORDERED: FUROSEMIDE40 MG PO (17:49)
== END 2016-11-10 19:49 | disposition home health service (06) ==
LOC: EME 15:31 → EDOF 21:06 → 5WEST 22:32
PROVIDERS: Family Medicine; Hospitalist
PROC: 30233N1 Transfusion of Nonautologous Red Blood Cells into Peripheral Vein, Percutaneous Approach (ICD-10-PCS; 2016-11-08)
PROC: 0W9G3ZZ Drainage of Peritoneal Cavity, Percutaneous Approach (ICD-10-PCS; principal; 2016-11-10)
DX: D61.818 Other pancytopenia (principal); E87.5 Hyperkalemia; K74.69 Other cirrhosis of liver; R18.8 Other ascites; I12.9 Hypertensive chronic kidney disease with stage 1 through stage 4 chronic kidney disease, or unspecified chronic kidney disease; E11.9 Type 2 diabetes mellitus without complications; K76.6 Portal hypertension; K72.90 Hepatic failure, unspecified without coma; K76.7 Hepatorenal syndrome; E03.9 Hypothyroidism, unspecified; I27.2 Other secondary pulmonary hypertension; K31.89 Other diseases of stomach and duodenum; N18.3 Chronic kidney disease, stage 3 (moderate); Z76.82 Awaiting organ transplant status
CPT/HCPCS: 80048; 80053; 82948; 85025; 85027; 86850; 86860; 86870; 86880; 86900; 86901; 86905; 86920; 94640; 94640 76; 99281; 99285; G0378; J7040; P9016

== ENCOUNTER → 2016-12-01 | Outpatient (CLI) | payer OTHER ==
[~2016-12-01] MED LIST changes: +FUROSEMIDE40 MG PO
== END | disposition home or self-care (01) ==
LOC: RAD 07:51
PROC: 0W9G3ZZ Drainage of Peritoneal Cavity, Percutaneous Approach (ICD-10-PCS; principal; 2016-12-01)
DX: R18.8 Other ascites (principal); R14.0 Abdominal distension (gaseous); K74.60 Unspecified cirrhosis of liver; K65.2 Spontaneous bacterial peritonitis; K75.81 Nonalcoholic steatohepatitis (NASH); R41.0 Disorientation, unspecified; I85.01 Esophageal varices with bleeding
CPT/HCPCS: P9047

== ENCOUNTER 2016-12-16 16:49 | Emergency (ER) | payer OTHER ==
[~2016-12-16] VITALS: Ht 165.1 cm; Wt 63.7 kg
[2016-12-16 18:57] LABS: EOSINOPHIL (%) 1.8 % (0-5); EOSINOPHIL COUNT 0.1 K/uL (0-0.3); HEMATOCRIT 24.3 % (36.0-46.0); IMMATURE GRANULOCYTE (%) 0.4 % (0.0-0.7); INSTRUMENT ABS NEUTROPHIL CT 4.4 K/uL; LYMPHOCYTE COUNT 0.2 K/uL (1.0-2.8); MCH 26.1 PG (29.0-34.0); MCHC 30.5 G/DL (30.0-36.0); MCV 85.9 FL (83-99); MEAN PLAT.VOLUME 11.7 uM^3 (9.5-12.4); MONOCYTE (%) 6.1 % (3-12); MONOCYTE COUNT 0.3 K/uL (0-0.8); NEUTROPHIL (%) 86.8 % (45-76); NEUTROPHIL COUNT 4.4 K/uL (1.8-6.4); PLATELET COUNT 108 K/uL (156-360); RBC DIS.WIDTH-CV 18.5 % (11.8-14.6); RBC DIS.WIDTH-SD 57.7 % (39-53); RED BLOOD COUNT 2.83 M/uL (3.80-5.20); WHITE BLOOD COUNT 5.1 K/uL (4.1-10.2)
[2016-12-16 19:08] LABS: INTER. NORMALIZED RATIO 1.2; PROTHROMBIN TIME 12.5 (9.2-11.2)
[2016-12-16 19:09] LABS: CHLORIDE 103 mEq/L (99-109); POTASSIUM 3.9 mEq/L (3.7-5.4); SODIUM 138 mEq/L (136-147)
[2016-12-16 19:11] LABS: GLUCOSE 386 mg/dL (70-99)
[2016-12-16 19:12] LABS: ANION GAP 11 MEQ/L (2-14)
[2016-12-16 19:13] LABS: TOTAL BILIRUBIN 1.6 mg/dL (0.0-1.0)
[2016-12-16 19:14] LABS: ALKALINE PHOSPHATASE 319 IU/L (3-129)
[2016-12-16 19:15] LABS: GFR ESTIMATE (CALCULATED) 28 mL/min/
[2016-12-16 19:16] LABS: UREA NITROGEN (BUN) 50 mg/dL (9-23)
[2016-12-16 19:48] LABS: INFLUENZA A VIRAL ANTIGEN NEGATIVE; INFLUENZA B VIRAL ANTIGEN NEGATIVE
[2016-12-16 23:33] VITALS: BP 150/69
== END 2016-12-16 23:43 | disposition home or self-care (01) ==
LOC: EME 16:49
PROVIDERS: Physician Assistant
DX: K72.90 Hepatic failure, unspecified without coma (principal); R18.8 Other ascites; R05 Cough; R41.82 Altered mental status, unspecified; E11.9 Type 2 diabetes mellitus without complications; I10 Essential (primary) hypertension; J45.909 Unspecified asthma, uncomplicated; Z95.0 Presence of cardiac pacemaker; Z79.4 Long term (current) use of insulin; Z87.891 Personal history of nicotine dependence
CPT/HCPCS: 71020; 76705; 80053; 81003; 82140; 82150 91; 83605; 85025; 85610; 85730; 87040; 87070; 87205; 87502; 89051; 93005; 99281; 99285; J7120

== ENCOUNTER 2016-12-29 18:07 | Inpatient (IN) | payer OTHER ==
[~2016-12-29] VITALS: Ht 165.1 cm; Wt 61.6 kg
[2016-12-29 18:49] LABS: MCH 26.1 PG (29.0-34.0); MEAN PLAT.VOLUME 11.8 uM^3 (9.5-12.4); PLATELET COUNT 101 K/uL (156-360); RBC DIS.WIDTH-CV 17.2 % (11.8-14.6); RBC DIS.WIDTH-SD 54.6 % (39-53); RED BLOOD COUNT 2.76 M/uL (3.80-5.20); WHITE BLOOD COUNT 4.3 K/uL (4.1-10.2)
[2016-12-29 19:02] LABS: ANION GAP 8 MEQ/L (2-14)
[2016-12-29 19:03] LABS: TOTAL BILIRUBIN 1.1 mg/dL (0.0-1.0)
[2016-12-29 19:04] LABS: GLUCOSE 555 mg/dL (70-99)
[2016-12-29 19:05] LABS: ALKALINE PHOSPHATASE 303 IU/L (3-129); GFR ESTIMATE (CALCULATED) 23 mL/min/
[2016-12-29 19:17] LABS: POTASSIUM 4.7 mEq/L (3.7-5.4); SODIUM 131 mEq/L (136-147)
[2016-12-29 19:18] LABS: CHLORIDE 99 mEq/L (99-109); UREA NITROGEN (BUN) 56 mg/dL (9-23)
[2016-12-29 19:27] LABS: CARBON DIOXIDE (BICARBONATE) 28.7 MEQ/L (20-31)
[2016-12-29 19:37] LABS: ADD MIUA? YES; BILIRUBIN NEGATIVE; BLOOD SMALL; COLOR YELLOW ((YELLOW)); GLUCOSE (STRIP) >=500; KETONES NEGATIVE; LEUKOCYTES LARGE; NITRITE NEGATIVE; PROTEIN (STRIP) NEGATIVE; SPECIFIC GRAVITY 1.008 (1.000-1.030); UROBILINOGEN 0.2 MG/DL (0.2-1.0)
[2016-12-29 20:54] LABS: CASTS NONE SEEN /LPF; EPITHELIAL CELLS RARE /HPF; MUCUS NONE SEEN /LPF
[2016-12-29 20:55] LABS: BACTERIA NONE SEEN /HPF; RED BLOOD CELLS NONE SEEN /HPF (0-5); UCUL ADDED? YES; WHITE BLOOD CELLS TNTC /HPF (0-5)
[2016-12-29] MEDS ORDERED: FUROSEMIDE40 MG PO (21:47)
[2016-12-29 22:13] LABS: POINT-OF-CARE METER ID UU14100415
[2016-12-30] VITALS (12 sets, daily range): BP systolic 113–154; BP diastolic 56–71
[2016-12-30 07:40] LABS: INTERNAL CONTROL VALID? YES
[2016-12-30 08:08] LABS: HEMATOCRIT 23.4 % (36.0-46.0); MCH 26.2 PG (29.0-34.0); MCHC 29.9 G/DL (30.0-36.0); MCV 87.6 FL (83-99); MEAN PLAT.VOLUME 12.1 uM^3 (9.5-12.4); PLATELET COUNT 101 K/uL (156-360); RBC DIS.WIDTH-CV 17.3 % (11.8-14.6); RBC DIS.WIDTH-SD 55.1 % (39-53); RED BLOOD COUNT 2.67 M/uL (3.80-5.20); WHITE BLOOD COUNT 3.6 K/uL (4.1-10.2)
[2016-12-30 08:39] LABS: ANION GAP 10 MEQ/L (2-14); CHLORIDE 104 MEQ/L (99-109); DIRECT BILIRUBIN 0.4 mg/dL (0.0-0.3); POTASSIUM 4.3 MEQ/L (3.7-5.4); SAMPLE HEMOLYSIS CHECK 0; SAMPLE ICTERIC CHECK 0; SAMPLE LIPEMIA CHECK 0
[2016-12-30 08:40] LABS: SODIUM 138 MEQ/L (136-147)
[2016-12-30 08:45] LABS: ALKALINE PHOSPHATASE 313 IU/L (3-129); GFR ESTIMATE (CALCULATED) 30 mL/min/; UREA NITROGEN (BUN) 53 mg/dL (9-23)
[2016-12-30 08:46] LABS: GLUCOSE 180 mg/dL (70-99)
[2016-12-30 12:38] LABS: POINT-OF-CARE METER ID UU13113778
[2016-12-30 12:38] LABS: POINT-OF-CARE METER ID UU14100415
[2016-12-30 21:32] LABS: POINT-OF-CARE METER ID UU13113725; POINT-OF-CARE USER ID STWHLR41
[2016-12-31] VITALS (8 sets, daily range): BP systolic 135–158; BP diastolic 60–65
[2016-12-31 01:58] LABS: HEMATOCRIT 25.1 % (36.0-46.0); MCH 26.9 PG (29.0-34.0); MCHC 31.1 G/DL (30.0-36.0); MCV 86.6 FL (83-99); MEAN PLAT.VOLUME 11.8 uM^3 (9.5-12.4); PLATELET COUNT 94 K/uL (156-360); RBC DIS.WIDTH-CV 16.7 % (11.8-14.6); RBC DIS.WIDTH-SD 51.9 % (39-53); WHITE BLOOD COUNT 3.7 K/uL (4.1-10.2)
[2016-12-31 07:02] LABS: HEMATOCRIT 25.2 % (36.0-46.0); MCH 26.8 PG (29.0-34.0); MCHC 30.6 G/DL (30.0-36.0); MCV 87.8 FL (83-99); MEAN PLAT.VOLUME 11.6 uM^3 (9.5-12.4); PLATELET COUNT 91 K/uL (156-360); RBC DIS.WIDTH-SD 54.3 % (39-53); RED BLOOD COUNT 2.87 M/uL (3.80-5.20); WHITE BLOOD COUNT 3.4 K/uL (4.1-10.2)
[2016-12-31 07:08] LABS: Estimated Average Glucose 200 mg/dL (70-123)
[2016-12-31 07:21] LABS: ANION GAP 8 MEQ/L (2-14); CHLORIDE 108 MEQ/L (99-109); GFR ESTIMATE (CALCULATED) 34 mL/min/; POTASSIUM 4.3 MEQ/L (3.7-5.4); SAMPLE HEMOLYSIS CHECK 0; SAMPLE ICTERIC CHECK 0; SAMPLE LIPEMIA CHECK 0; SODIUM 139 MEQ/L (136-147); UREA NITROGEN (BUN) 47 mg/dL (9-23)
[2016-12-31 07:25] LABS: GLUCOSE 65 mg/dL (70-99)
[2016-12-31 07:35] LABS: HEMOGLOBIN A1c (GLYCOHEMOGLOB) 8.6 % HGB (Below 5.7)
[2016-12-31 07:49] LABS: ABS NEUTROPHIL COUNT 2.8; ANISOCYTOSIS 1+; BAND NEUTROPHILS 1.8 % (0-8.0); BASOPHILS 1.8 %; EOSINOPHIL ABS CT 0.1; EOSINOPHILS 2.7 % (0-5.0); LYMPHOCYTES 9.1 % (15.0-45.0); NUCLEATED RBC'S 0.9; PLAT.SUFFICIENCY DECREASED; POIKILOCYTOSIS 1+
[2016-12-31 14:25] LABS: POINT-OF-CARE METER ID UU13113694
[2016-12-31 15:30] LABS: POINT-OF-CARE METER ID UU13113819
[2016-12-31 16:54] LABS: POINT-OF-CARE METER ID UU13113725
[2016-12-31 17:30] LABS: POINT-OF-CARE METER ID UU13113725
[2016-12-31 20:10] LABS: HEMATOCRIT 25.9 % (36.0-46.0); MCV 88.4 FL (83-99)
[2016-12-31 21:02] LABS: POINT-OF-CARE METER ID UU13113725
[2017-01-01 03:15] VITALS: BP 112/56
[2017-01-01 05:40] LABS: POINT-OF-CARE METER ID UU13113725
[2017-01-01 06:52] LABS: HEMATOCRIT 29.5 % (36.0-46.0); MCHC 30.8 G/DL (30.0-36.0); MCV 87.5 FL (83-99); MEAN PLAT.VOLUME 12.4 uM^3 (9.5-12.4); PLATELET COUNT 117 K/uL (156-360); RBC DIS.WIDTH-SD 54.4 % (39-53); RED BLOOD COUNT 3.37 M/uL (3.80-5.20)
[2017-01-01 06:54] LABS: WHITE BLOOD COUNT 4.5 K/uL (4.1-10.2)
[2017-01-01 07:12] LABS: ANION GAP 8 MEQ/L (2-14); CHLORIDE 102 MEQ/L (99-109); GFR ESTIMATE (CALCULATED) 30 mL/min/; GLUCOSE 63 mg/dL (70-99); POTASSIUM 4.4 MEQ/L (3.7-5.4); SAMPLE HEMOLYSIS CHECK 0; SAMPLE ICTERIC CHECK 0; SAMPLE LIPEMIA CHECK 0; SODIUM 136 MEQ/L (136-147); UREA NITROGEN (BUN) 45 mg/dL (9-23)
[2017-01-01 07:18] VITALS: BP 136/62
[2017-01-01] MEDS ORDERED: AZITHROMYCIN500 M1 PO (09:35)
[2017-01-01] MEDS ORDERED: FERROUS SULFAT325 MG PO (09:35)
[2017-01-03 13:05] LABS: POC NON-PRINT COM 1 ND
[2017-01-03 13:05] LABS: POC NON-PRINT COM 1 ND
[2017-01-03 13:05] LABS: POC NON-PRINT COM 1 ND
== END 2017-01-01 12:00 | disposition home or self-care (01) | DRG 441 ==
LOC: EME 18:07 → 5EAST 22:15 → EDOF 22:15 → 5EAST 12-30 00:54
PROVIDERS: Emergency Medicine; Hospitalist; Nurse Practitioner Family
PROC: 30233N1 Transfusion of Nonautologous Red Blood Cells into Peripheral Vein, Percutaneous Approach (ICD-10-PCS; principal; 2016-12-30)
PROC: 0DB68ZX Excision of Stomach, Via Natural or Artificial Opening Endoscopic, Diagnostic (ICD-10-PCS; 2016-12-31)
DX: K72.10 Chronic hepatic failure without coma (principal); K74.69 Other cirrhosis of liver; E11.65 Type 2 diabetes mellitus with hyperglycemia; E11.22 Type 2 diabetes mellitus with diabetic chronic kidney disease; N18.3 Chronic kidney disease, stage 3 (moderate); I12.9 Hypertensive chronic kidney disease with stage 1 through stage 4 chronic kidney disease, or unspecified chronic kidney disease; R18.8 Other ascites; J18.9 Pneumonia, unspecified organism; D61.818 Other pancytopenia; E03.9 Hypothyroidism, unspecified; R53.1 Weakness; D63.8 Anemia in other chronic diseases classified elsewhere; K76.6 Portal hypertension; E78.5 Hyperlipidemia, unspecified; D75.9 Disease of blood and blood-forming organs, unspecified; G93.41 Metabolic encephalopathy; D73.2 Chronic congestive splenomegaly; K31.89 Other diseases of stomach and duodenum
CPT/HCPCS: 71010; 71020; 76705; 80048; 80053; 80076; 81003; 82010; 82140; 82272; 82803; 82948; 83036; 85007; 85014; 85018; 85027; 86860; 86870; 86880; 86900; 86901; 86905; 86920; 87040; 87070; 87086; 87205; 87449; 87651 90; 88305; 88342 TC; 89051; 93005; 94640; 94640 76; 99202; 99281; 99285; J0456; J0696; J1815; J7030; J7050; P9016; P9047

== ENCOUNTER 2017-02-11 13:44 | Inpatient (IN) | payer OTHER ==
[~2017-02-11] VITALS: Ht 165.1 cm; Wt 71.4 kg
[~2017-02-11 13:44] MED LIST changes: +FERROUS SULFAT325 MG PO
[2017-02-11 17:46] LABS: HEMATOCRIT 21.4 % (36.0-46.0); MCH 26.1 PG (29.0-34.0); MCHC 29.4 G/DL (30.0-36.0); MCV 88.8 FL (83-99); MEAN PLAT.VOLUME 11.7 uM^3 (9.5-12.4); PLATELET COUNT 72 K/uL (156-360); RBC DIS.WIDTH-CV 15.7 % (11.8-14.6); RBC DIS.WIDTH-SD 50.4 % (39-53); RED BLOOD COUNT 2.41 M/uL (3.80-5.20); WHITE BLOOD COUNT 2.1 K/uL (4.1-10.2)
[2017-02-11 17:50] LABS: CHLORIDE 111 mEq/L (99-109); POTASSIUM 4.5 mEq/L (3.7-5.4); SODIUM 141 mEq/L (136-147)
[2017-02-11 17:52] LABS: GLUCOSE 212 mg/dL (70-99)
[2017-02-11 17:54] LABS: ANION GAP 8 MEQ/L (2-14); TOTAL BILIRUBIN 0.6 mg/dL (0.0-1.0)
[2017-02-11 17:56] LABS: ALKALINE PHOSPHATASE 273 IU/L (3-129); GFR ESTIMATE (CALCULATED) 32 mL/min/
[2017-02-11 17:57] LABS: UREA NITROGEN (BUN) 33 mg/dL (9-23)
[2017-02-11 23:00] VITALS: BP 156/70
[2017-02-12] VITALS (17 sets, daily range): BP systolic 112–167; BP diastolic 55–77
[2017-02-12 01:46] LABS: INTERNAL CONTROL VALID? YES
[2017-02-12 06:47] LABS: INTER. NORMALIZED RATIO 1.2; PROTHROMBIN TIME 11.9 (9.2-11.2)
[2017-02-12 06:58] LABS: HEMATOCRIT 22.5 % (36.0-46.0); MCH 27.8 PG (29.0-34.0); MCHC 30.7 G/DL (30.0-36.0); MCV 90.7 FL (83-99); MEAN PLAT.VOLUME 12.3 uM^3 (9.5-12.4); PLATELET COUNT 67 K/uL (156-360); RBC DIS.WIDTH-CV 15.3 % (11.8-14.6); RBC DIS.WIDTH-SD 50.6 % (39-53); RED BLOOD COUNT 2.48 M/uL (3.80-5.20)
[2017-02-12 07:06] LABS: ANION GAP 7 MEQ/L (2-14); CHLORIDE 111 MEQ/L (99-109); GFR ESTIMATE (CALCULATED) 34 mL/min/; POTASSIUM 4.3 MEQ/L (3.7-5.4); SAMPLE HEMOLYSIS CHECK 0; SAMPLE ICTERIC CHECK 0; SAMPLE LIPEMIA CHECK 0; SODIUM 143 MEQ/L (136-147); UREA NITROGEN (BUN) 35 mg/dL (9-23)
[2017-02-12 07:11] LABS: GLUCOSE 97 mg/dL (70-99)
[2017-02-12 12:15] LABS: POINT-OF-CARE METER ID UU14188577
[2017-02-13 03:58] VITALS: BP 142/68
[2017-02-13 06:53] LABS: HEMATOCRIT 24.7 % (36.0-46.0); MCH 27.9 PG (29.0-34.0); MCHC 31.2 G/DL (30.0-36.0); MCV 89.5 FL (83-99); MEAN PLAT.VOLUME 11.1 uM^3 (9.5-12.4); PLATELET COUNT 60 K/uL (156-360); RBC DIS.WIDTH-CV 15.6 % (11.8-14.6); RBC DIS.WIDTH-SD 51.1 % (39-53); RED BLOOD COUNT 2.76 M/uL (3.80-5.20); WHITE BLOOD COUNT 2.2 K/uL (4.1-10.2)
[2017-02-13 07:19] LABS: ANION GAP 10 MEQ/L (2-14); CHLORIDE 107 MEQ/L (99-109); GFR ESTIMATE (CALCULATED) 30 mL/min/; POTASSIUM 4.3 MEQ/L (3.7-5.4); SAMPLE HEMOLYSIS CHECK 0; SAMPLE ICTERIC CHECK 0; SAMPLE LIPEMIA CHECK 0; SODIUM 139 MEQ/L (136-147); UREA NITROGEN (BUN) 34 mg/dL (9-23)
[2017-02-13 07:23] LABS: GLUCOSE 154 mg/dL (70-99)
[2017-02-13 07:35] VITALS: BP 134/58
[2017-02-13 13:16] VITALS: BP 130/60
[2017-02-13 15:44] VITALS: BP 143/65
[2017-02-13 20:31] VITALS: BP 150/66
[2017-02-14] VITALS (7 sets, daily range): BP systolic 116–146; BP diastolic 58–86
[2017-02-14 07:04] LABS: HEMATOCRIT 23.9 % (36.0-46.0); MCH 28.4 PG (29.0-34.0); MCHC 31.8 G/DL (30.0-36.0); MCV 89.2 FL (83-99); MEAN PLAT.VOLUME 12.2 uM^3 (9.5-12.4); PLATELET COUNT 66 K/uL (156-360); RBC DIS.WIDTH-CV 15.4 % (11.8-14.6); RBC DIS.WIDTH-SD 49.6 % (39-53); RED BLOOD COUNT 2.68 M/uL (3.80-5.20); WHITE BLOOD COUNT 2.1 K/uL (4.1-10.2)
[2017-02-14 09:49] LABS: POINT-OF-CARE USER ID STWAMT
[2017-02-14 16:27] LABS: POINT-OF-CARE METER ID UU14174225
[2017-02-14 21:46] LABS: POINT-OF-CARE METER ID UU13113717
[2017-02-15 04:10] VITALS: BP 122/59
[2017-02-15 06:24] LABS: HEMATOCRIT 23.3 % (36.0-46.0); MCH 27.3 PG (29.0-34.0); MCHC 31.3 G/DL (30.0-36.0); MCV 87.3 FL (83-99); MEAN PLAT.VOLUME 11.9 uM^3 (9.5-12.4); PLATELET COUNT 67 K/uL (156-360); RBC DIS.WIDTH-CV 15.5 % (11.8-14.6); RBC DIS.WIDTH-SD 49.6 % (39-53); RED BLOOD COUNT 2.67 M/uL (3.80-5.20); WHITE BLOOD COUNT 2.1 K/uL (4.1-10.2)
[2017-02-15 06:59] LABS: ANION GAP 7 MEQ/L (2-14); CHLORIDE 105 MEQ/L (99-109); GFR ESTIMATE (CALCULATED) 28 mL/min/; GLUCOSE 164 mg/dL (70-99); POTASSIUM 4.3 MEQ/L (3.7-5.4); SAMPLE HEMOLYSIS CHECK 0; SAMPLE ICTERIC CHECK 0; SAMPLE LIPEMIA CHECK 0; SODIUM 136 MEQ/L (136-147); UREA NITROGEN (BUN) 39 mg/dL (9-23)
[2017-02-15 07:35] VITALS: BP 109/66
[2017-02-15 07:37] VITALS: BP 139/91
[2017-02-15] MEDS ORDERED: CENTRUM SILVER1 EAC4 PO (11:47)
[2017-02-15] MEDS ORDERED: LASIX40 MG PO (11:48)
[2017-02-15] MEDS ORDERED: NORVASC5 MG PO (11:49)
[2017-02-15] MEDS ORDERED: LEVEMIR FL100 UNIT/1 SC (11:51)
[2017-02-15] MEDS ORDERED: LEVO-T88 MCG PO (11:51)
[2017-02-15] MEDS ORDERED: XIFAXAN550 MG PO (11:56)
[2017-02-15] MEDS ORDERED: MOBIC7.5 MG PO (11:56)
[2017-02-15] MEDS ORDERED: IMODIUM A-D2 M2 PO (11:57)
[2017-02-15] MEDS ORDERED: TRADJENTA5 MG PO (11:58)
[2017-02-15] MEDS ORDERED: GENERLAC10 GM/15 M PO (12:05)
[2017-02-15 12:13] LABS: POINT-OF-CARE METER ID UU13113717
== END 2017-02-15 12:54 | disposition home health service (06) | DRG 441 ==
LOC: EME 13:44 → 5SOUTH 20:15 → EDOF 20:15 → 3EAST 22:19 → 5SOUTH 02-14 01:19
PROVIDERS: Hospitalist; Internal Medicine; Internal Medicine Gastroenterology; Nurse Practitioner Family
PROC: 30233N1 Transfusion of Nonautologous Red Blood Cells into Peripheral Vein, Percutaneous Approach (ICD-10-PCS; principal; 2017-02-12)
DX: K72.90 Hepatic failure, unspecified without coma (principal); R18.8 Other ascites; K74.69 Other cirrhosis of liver; Z76.82 Awaiting organ transplant status; J18.9 Pneumonia, unspecified organism; D61.818 Other pancytopenia; E72.20 Disorder of urea cycle metabolism, unspecified; I12.9 Hypertensive chronic kidney disease with stage 1 through stage 4 chronic kidney disease, or unspecified chronic kidney disease; N18.3 Chronic kidney disease, stage 3 (moderate); E11.9 Type 2 diabetes mellitus without complications; E78.4 Other hyperlipidemia; E03.9 Hypothyroidism, unspecified; K76.6 Portal hypertension; K31.89 Other diseases of stomach and duodenum; Z95.0 Presence of cardiac pacemaker; Z85.3 Personal history of malignant neoplasm of breast; Z85.028 Personal history of other malignant neoplasm of stomach; Z88.2 Allergy status to sulfonamides; Z88.5 Allergy status to narcotic agent; Z88.6 Allergy status to analgesic agent; Z91.041 Radiographic dye allergy status; Z79.4 Long term (current) use of insulin
CPT/HCPCS: 71020; 76705; 80048; 80053; 80069; 82140; 82272; 82948; 85027; 85610; 86860; 86870; 86880; 86900; 86901; 86905; 86920; 93005; 99202; 99281; 99285; C9113; J1815; J1940; P9016

== ENCOUNTER 2017-03-07 12:19 | Inpatient (IN) | payer OTHER ==
[~2017-03-07] VITALS: Ht 165.1 cm; Wt 80.0 kg
[~2017-03-07 12:19] MED LIST changes: +CENTRUM SILVER1 EAC4 PO; +GENERLAC10 GM/15 M PO; +IMODIUM A-D2 M2 PO; +LEVO-T88 MCG PO
[2017-03-07 13:03] LABS: EOSINOPHIL COUNT 0.2 K/uL (0-0.3); IMMATURE GRANULOCYTE (%) 0.5 % (0.0-0.7); INSTRUMENT ABS NEUTROPHIL CT 1.5 K/uL; LYMPHOCYTE COUNT 0.2 K/uL (1.0-2.8); MCH 26.8 PG (29.0-34.0); MCV 89.4 FL (83-99); MEAN PLAT.VOLUME 11.7 uM^3 (9.5-12.4); MONOCYTE (%) 7.5 % (3-12); MONOCYTE COUNT 0.2 K/uL (0-0.8); NEUTROPHIL COUNT 1.5 K/uL (1.8-6.4); PLATELET COUNT 59 K/uL (156-360); RBC DIS.WIDTH-CV 16.4 % (11.8-14.6); RBC DIS.WIDTH-SD 53.1 % (39-53); RED BLOOD COUNT 2.46 M/uL (3.80-5.20)
[2017-03-07 13:07] LABS: INTER. NORMALIZED RATIO 1.1; PROTHROMBIN TIME 11.5 (9.2-11.2); PTT 31.4 (25-32)
[2017-03-07 13:16] LABS: CHLORIDE 115 mEq/L (99-109); POTASSIUM 5.3 mEq/L (3.7-5.4); SODIUM 140 mEq/L (136-147)
[2017-03-07 13:19] LABS: GLUCOSE 245 mg/dL (70-99)
[2017-03-07 13:20] LABS: ANION GAP 6 MEQ/L (2-14); TOTAL BILIRUBIN 0.6 mg/dL (0.0-1.0)
[2017-03-07 13:22] LABS: ALKALINE PHOSPHATASE 277 IU/L (3-129); GFR ESTIMATE (CALCULATED) 32 mL/min/
[2017-03-07 13:23] LABS: UREA NITROGEN (BUN) 30 mg/dL (9-23)
[2017-03-07 16:59] VITALS: BP 166/72
[2017-03-07 18:02] LABS: Estimated Average Glucose 166 mg/dL (70-123); HEMOGLOBIN A1c (GLYCOHEMOGLOB) 7.4 % HGB (Below 5.7)
[2017-03-07 20:03] VITALS: BP 163/70
[2017-03-07 20:31] LABS: HEMATOCRIT 20.3 % (36.0-46.0); MCV 89.8 FL (83-99)
[2017-03-07 21:18] VITALS: BP 158/69
[2017-03-07 21:47] VITALS: BP 148/74
[2017-03-07 22:47] VITALS: BP 136/65
[2017-03-07 23:47] VITALS: BP 157/65
[2017-03-08] VITALS (11 sets, daily range): BP systolic 132–172; BP diastolic 60–77
[2017-03-08 07:04] LABS: HEMATOCRIT 24.8 % (36.0-46.0); MCV 89.5 FL (83-99)
[2017-03-08 07:33] LABS: ALKALINE PHOSPHATASE 221 IU/L (3-129); ANION GAP 6 MEQ/L (2-14); CHLORIDE 114 MEQ/L (99-109); GFR ESTIMATE (CALCULATED) 34 mL/min/; GLUCOSE 151 mg/dL (70-99); POTASSIUM 5.3 MEQ/L (3.7-5.4); SAMPLE HEMOLYSIS CHECK 0; SAMPLE ICTERIC CHECK 0; SAMPLE LIPEMIA CHECK 0; SODIUM 141 MEQ/L (136-147); UREA NITROGEN (BUN) 30 mg/dL (9-23)
[2017-03-08 10:01] LABS: TYPE OF FLUID PARACENTESIS
[2017-03-08 10:16] LABS: BODY FLUID RBC'S < 1000 /MM^3 (0-100); BODY FLUID WBC'S 113 /MM^3 (0-500)
[2017-03-08 10:50] LABS: BODY FLUID PROTEIN < 3.0 G/DL
[2017-03-08 11:06] LABS: BODY FLUID EOSINOPHILS 0 % (0-25); MONO RAW COUNT 100; MONONUCLEAR WBC'S 100 %; POLYNUCLEAR WBC'S 0 % (0-25)
[2017-03-08 12:07] LABS: POINT-OF-CARE METER ID UU14188625; POINT-OF-CARE USER ID STWAMT
[2017-03-08] MEDS ORDERED: LACTULOSE10 GM/151 PO (18:23)
[2017-03-08 20:32] LABS: HEMATOCRIT 27.3 % (36.0-46.0); MCV 89.8 FL (83-99)
[2017-03-08 21:17] LABS: C DIFF TOXIN NEGATIVE (NEGATIVE)
[2017-03-08 21:23] LABS: PROBE CHECK PASS; SPECIMEN PROCESSING CONTROL PASS
[2017-03-09 03:48] VITALS: BP 140/62
[2017-03-09 07:59] VITALS: BP 138/67
[2017-03-09 08:06] LABS: POINT-OF-CARE METER ID UU14174225
[2017-03-09 09:57] LABS: HEMATOCRIT 28.1 % (36.0-46.0); MCV 89.5 FL (83-99)
[2017-03-09 09:58] LABS: EOSINOPHIL (%) 9.9 % (0-5); EOSINOPHIL COUNT 0.3 K/uL (0-0.3); IMMATURE GRANULOCYTE (%) 0.3 % (0.0-0.7); INSTRUMENT ABS NEUTROPHIL CT 2.1 K/uL; LYMPHOCYTE COUNT 0.4 K/uL (1.0-2.8); MCH 27.2 PG (29.0-34.0); MCHC 30.4 G/DL (30.0-36.0); MCV 89.5 FL (83-99); MEAN PLAT.VOLUME 11.2 uM^3 (9.5-12.4); MONOCYTE (%) 8.6 % (3-12); MONOCYTE COUNT 0.3 K/uL (0-0.8); NEUTROPHIL (%) 68.6 % (45-76); NEUTROPHIL COUNT 2.1 K/uL (1.8-6.4); PLATELET COUNT 68 K/uL (156-360); RBC DIS.WIDTH-CV 16.6 % (11.8-14.6); RBC DIS.WIDTH-SD 53.7 % (39-53)
[2017-03-09 10:06] LABS: RED BLOOD COUNT 3.13 M/uL (3.80-5.20)
[2017-03-09 10:33] LABS: ANION GAP 7 MEQ/L (2-14); CHLORIDE 108 MEQ/L (99-109); GFR ESTIMATE (CALCULATED) 28 mL/min/; GLUCOSE 199 mg/dL (70-99); POTASSIUM 5.8 MEQ/L (3.7-5.4); SAMPLE HEMOLYSIS CHECK 0; SAMPLE ICTERIC CHECK 0; SAMPLE LIPEMIA CHECK 0; SODIUM 135 MEQ/L (136-147); UREA NITROGEN (BUN) 33 mg/dL (9-23)
[2017-03-09 11:56] LABS: POINT-OF-CARE METER ID UU14188625
[2017-03-09 13:14] VITALS: BP 148/67
[2017-03-09 13:18] LABS: ANION GAP 6 MEQ/L (2-14); CHLORIDE 107 MEQ/L (99-109); GFR ESTIMATE (CALCULATED) 28 mL/min/; GLUCOSE 227 mg/dL (70-99); POTASSIUM 5.9 MEQ/L (3.7-5.4); SAMPLE HEMOLYSIS CHECK 0; SAMPLE ICTERIC CHECK 0; SAMPLE LIPEMIA CHECK 0; SODIUM 132 MEQ/L (136-147); UREA NITROGEN (BUN) 34 mg/dL (9-23)
[2017-03-09 15:51] VITALS: BP 143/65
[2017-03-09 20:00] VITALS: BP 165/70
[2017-03-09 21:06] LABS: HEMATOCRIT 26.8 % (36.0-46.0); MCV 88.7 FL (83-99)
[2017-03-09 21:18] LABS: POINT-OF-CARE METER ID UU14188625
[2017-03-09 21:48] LABS: ANION GAP 4 MEQ/L (2-14); CHLORIDE 107 MEQ/L (99-109); GFR ESTIMATE (CALCULATED) 26 mL/min/; GLUCOSE 184 mg/dL (70-99); SAMPLE HEMOLYSIS CHECK 0; SAMPLE ICTERIC CHECK 0; SAMPLE LIPEMIA CHECK 0; SODIUM 131 MEQ/L (136-147); UREA NITROGEN (BUN) 35 mg/dL (9-23)
[2017-03-09 21:52] LABS: POTASSIUM 6.4 MEQ/L (3.7-5.4)
[2017-03-09 23:31] VITALS: BP 139/65
[2017-03-10 04:00] VITALS: BP 153/65
[2017-03-10 06:16] LABS: EOSINOPHIL (%) 10.3 % (0-5); EOSINOPHIL COUNT 0.2 K/uL (0-0.3); HEMATOCRIT 23.5 % (36.0-46.0); INSTRUMENT ABS NEUTROPHIL CT 1.4 K/uL; LYMPHOCYTE COUNT 0.2 K/uL (1.0-2.8); MCH 27.7 PG (29.0-34.0); MCHC 31.5 G/DL (30.0-36.0); MEAN PLAT.VOLUME 11.4 uM^3 (9.5-12.4); MONOCYTE (%) 10.7 % (3-12); MONOCYTE COUNT 0.2 K/uL (0-0.8); NEUTROPHIL (%) 66.9 % (45-76); NEUTROPHIL COUNT 1.4 K/uL (1.8-6.4); PLATELET COUNT 53 K/uL (156-360); RBC DIS.WIDTH-CV 16.1 % (11.8-14.6); RBC DIS.WIDTH-SD 51.8 % (39-53); RED BLOOD COUNT 2.67 M/uL (3.80-5.20); WHITE BLOOD COUNT 2.1 K/uL (4.1-10.2)
[2017-03-10 06:42] LABS: ANION GAP 9 MEQ/L (2-14); CHLORIDE 109 MEQ/L (99-109); GFR ESTIMATE (CALCULATED) 28 mL/min/; GLUCOSE 190 mg/dL (70-99); IRON 34 MCG/DL (35-150); POTASSIUM 5.3 MEQ/L (3.7-5.4); SAMPLE HEMOLYSIS CHECK 0; SAMPLE ICTERIC CHECK 0; SAMPLE LIPEMIA CHECK 0; SODIUM 135 MEQ/L (136-147); UREA NITROGEN (BUN) 35 mg/dL (9-23)
[2017-03-10 07:29] LABS: URIC ACID 9.4 mg/dL (3.1-9.2)
[2017-03-10 08:10] LABS: INTACT PARATHYROID HORMONE 80 pg/mL (10-69)
[2017-03-10 08:30] VITALS: BP 162/69
[2017-03-10 08:50] LABS: HEMATOCRIT 25.4 % (36.0-46.0); MCV 88.5 FL (83-99)
[2017-03-10 15:37] VITALS: BP 160/72; BP 168/67
[2017-03-10 16:55] LABS: POINT-OF-CARE METER ID UU14188625
[2017-03-10 20:15] LABS: HEMATOCRIT 28.6 % (36.0-46.0); MCV 87.5 FL (83-99)
[2017-03-11 00:35] VITALS: BP 165/73
[2017-03-11 05:51] LABS: EOSINOPHIL (%) 10.7 % (0-5); EOSINOPHIL COUNT 0.2 K/uL (0-0.3); HEMATOCRIT 24.5 % (36.0-46.0); IMMATURE GRANULOCYTE (%) 0.5 % (0.0-0.7); INSTRUMENT ABS NEUTROPHIL CT 1.3 K/uL; LYMPHOCYTE COUNT 0.3 K/uL (1.0-2.8); MCH 27.6 PG (29.0-34.0); MCHC 31.4 G/DL (30.0-36.0); MCV 87.8 FL (83-99); MEAN PLAT.VOLUME 12.1 uM^3 (9.5-12.4); MONOCYTE (%) 10.2 % (3-12); MONOCYTE COUNT 0.2 K/uL (0-0.8); NEUTROPHIL (%) 64.8 % (45-76); NEUTROPHIL COUNT 1.3 K/uL (1.8-6.4); PLATELET COUNT 52 K/uL (156-360); RBC DIS.WIDTH-CV 15.9 % (11.8-14.6); RBC DIS.WIDTH-SD 50.6 % (39-53); RED BLOOD COUNT 2.79 M/uL (3.80-5.20)
[2017-03-11 06:25] LABS: ALKALINE PHOSPHATASE 235 IU/L (3-129); ANION GAP 7 MEQ/L (2-14); CHLORIDE 110 MEQ/L (99-109); GFR ESTIMATE (CALCULATED) 40 mL/min/; GLUCOSE 146 mg/dL (70-99); POTASSIUM 4.7 MEQ/L (3.7-5.4); SAMPLE HEMOLYSIS CHECK 0; SAMPLE ICTERIC CHECK 0; SAMPLE LIPEMIA CHECK 0; SODIUM 138 MEQ/L (136-147); TOTAL BILIRUBIN 1.1 MG/DL (0.0-1.0); UREA NITROGEN (BUN) 32 mg/dL (9-23)
[2017-03-11 08:02] VITALS: BP 148/61
[2017-03-11 14:22] LABS: POINT-OF-CARE METER ID UU14174212
[2017-03-11 16:14] LABS: POINT-OF-CARE METER ID UU13113819
[2017-03-11 20:51] LABS: HEMATOCRIT 27.7 % (36.0-46.0); MCV 89.4 FL (83-99)
[2017-03-12 00:20] VITALS: BP 135/57
[2017-03-12 06:53] LABS: EOSINOPHIL (%) 7.7 % (0-5); EOSINOPHIL COUNT 0.2 K/uL (0-0.3); HEMATOCRIT 23.4 % (36.0-46.0); IMMATURE GRANULOCYTE (%) 0.5 % (0.0-0.7); INSTRUMENT ABS NEUTROPHIL CT 1.4 K/uL; LYMPHOCYTE COUNT 0.3 K/uL (1.0-2.8); MCH 28.1 PG (29.0-34.0); MCHC 31.6 G/DL (30.0-36.0); MONOCYTE (%) 7.7 % (3-12); MONOCYTE COUNT 0.2 K/uL (0-0.8); NEUTROPHIL (%) 70.3 % (45-76); NEUTROPHIL COUNT 1.4 K/uL (1.8-6.4); RBC DIS.WIDTH-CV 16.2 % (11.8-14.6); RBC DIS.WIDTH-SD 52.1 % (39-53); RED BLOOD COUNT 2.63 M/uL (3.80-5.20)
[2017-03-12 07:11] LABS: ANION GAP 5 MEQ/L (2-14); CHLORIDE 111 MEQ/L (99-109); GFR ESTIMATE (CALCULATED) 32 mL/min/; GLUCOSE 194 mg/dL (70-99); POTASSIUM 5.2 MEQ/L (3.7-5.4); SAMPLE HEMOLYSIS CHECK 0; SAMPLE ICTERIC CHECK 0; SAMPLE LIPEMIA CHECK 0; SODIUM 138 MEQ/L (136-147); UREA NITROGEN (BUN) 30 mg/dL (9-23)
[2017-03-12 07:13] LABS: ANION GAP 5 MEQ/L (2-14); CHLORIDE 111 MEQ/L (99-109); GFR ESTIMATE (CALCULATED) 32 mL/min/; GLUCOSE 195 mg/dL (70-99); POTASSIUM 5.2 MEQ/L (3.7-5.4); SAMPLE HEMOLYSIS CHECK 0; SAMPLE ICTERIC CHECK 0; SAMPLE LIPEMIA CHECK 0; SODIUM 138 MEQ/L (136-147); UREA NITROGEN (BUN) 30 mg/dL (9-23)
[2017-03-12 07:35] LABS: IMM.PLATELET FRACTION 2.1 (1-7); MEAN PLAT.VOLUME 10.9 uM^3 (9.5-12.4); PLAT.SUFFICIENCY DECREASED; PLATELET COUNT 48 K/uL (156-360)
[2017-03-12 08:12] VITALS: BP 139/57
[2017-03-12 15:26] VITALS: BP 154/70
[2017-03-12 15:34] VITALS: BP 164/85
[2017-03-12 16:29] VITALS: BP 159/71
[2017-03-12 16:46] LABS: POINT-OF-CARE METER ID UU14174225
[2017-03-12 17:27] VITALS: BP 175/74
== END 2017-03-12 18:22 | disposition home or self-care (01) | DRG 808 ==
LOC: EME 12:19 → 5SOUTH 15:08 → EDOF 15:08 → 5SOUTH 16:57
PROVIDERS: Emergency Medicine; Hospitalist; Internal Medicine; Internal Medicine Nephrology; Specialist
PROC: 30233N1 Transfusion of Nonautologous Red Blood Cells into Peripheral Vein, Percutaneous Approach (ICD-10-PCS; principal; 2017-03-07)
PROC: 0W9G30Z Drainage of Peritoneal Cavity with Drainage Device, Percutaneous Approach (ICD-10-PCS; 2017-03-08)
PROC: 0DJ08ZZ Inspection of Upper Intestinal Tract, Via Natural or Artificial Opening Endoscopic (ICD-10-PCS; 2017-03-11)
PROC: 0DBN8ZX Excision of Sigmoid Colon, Via Natural or Artificial Opening Endoscopic, Diagnostic (ICD-10-PCS; 2017-03-11)
PROC: 0DBM8ZX Excision of Descending Colon, Via Natural or Artificial Opening Endoscopic, Diagnostic (ICD-10-PCS; 2017-03-11)
DX: D61.818 Other pancytopenia (principal); K92.2 Gastrointestinal hemorrhage, unspecified; K76.7 Hepatorenal syndrome; R18.8 Other ascites; N17.9 Acute kidney failure, unspecified; E87.5 Hyperkalemia; E87.2 Acidosis; K76.6 Portal hypertension; Z76.82 Awaiting organ transplant status; E11.22 Type 2 diabetes mellitus with diabetic chronic kidney disease; D12.5 Benign neoplasm of sigmoid colon; D12.4 Benign neoplasm of descending colon; I86.8 Varicose veins of other specified sites; I12.9 Hypertensive chronic kidney disease with stage 1 through stage 4 chronic kidney disease, or unspecified chronic kidney disease; N18.3 Chronic kidney disease, stage 3 (moderate); I85.00 Esophageal varices without bleeding; K31.89 Other diseases of stomach and duodenum; K72.10 Chronic hepatic failure without coma; K74.69 Other cirrhosis of liver; K21.9 Gastro-esophageal reflux disease without esophagitis; E78.5 Hyperlipidemia, unspecified; E03.9 Hypothyroidism, unspecified; I25.2 Old myocardial infarction; Z79.84 Long term (current) use of oral hypoglycemic drugs; Z95.0 Presence of cardiac pacemaker; Z87.891 Personal history of nicotine dependence; Z87.442 Personal history of urinary calculi; Z80.3 Family history of malignant neoplasm of breast; Z80.42 Family history of malignant neoplasm of prostate; Z82.3 Family history of stroke
CPT/HCPCS: 36415; 49083; 74176; 76705; 80048; 80048 91; 80053; 80069; 82040; 82140; 82306; 82607; 82945; 82948; 83036; 83540; 83970; 84157; 84466; 84550; 85014; 85018; 85025; 85045; 85610; 85730; 86860; 86870; 86880; 86900; 86901; 86905; 86920; 87070; 87205; 87493; 88305; 89051; 94640; 94640 76; 99281; 99285; C9113; J0744; J1815; J2354; P9016; P9047

== ENCOUNTER → 2017-04-14 | Outpatient (CLI) | payer OTHER | END | disposition home or self-care (01) | LOC: RAD 12:35 | PROC: 0WJG3ZZ Inspection of Peritoneal Cavity, Percutaneous Approach (ICD-10-PCS; principal; 2017-04-14) | DX: Z53.09 Procedure and treatment not carried out because of other contraindication (principal); R14.0 Abdominal distension (gaseous); K74.60 Unspecified cirrhosis of liver | CPT/HCPCS: 76705 ==

== ENCOUNTER 2017-04-26 18:19 | Inpatient (IN) | payer OTHER ==
[~2017-04-26] VITALS: Ht 160 cm; Wt 78.7 kg
[2017-04-26 21:30] VITALS: BP 141/66
[2017-04-26 21:53] VITALS: BP 144/52
[2017-04-26 22:50] VITALS: BP 143/66
[2017-04-27] VITALS (16 sets, daily range): BP systolic 124–184; BP diastolic 62–75
[2017-04-27 00:51] LABS: HEMATOCRIT 19.7 % (36.0-46.0); MCH 25.8 PG (29.0-34.0); MCV 80.7 FL (83-99); PLATELET COUNT 57 K/uL (156-360); RBC DIS.WIDTH-CV 16.1 % (11.8-14.6); RBC DIS.WIDTH-SD 47.8 % (39-53); RED BLOOD COUNT 2.44 M/uL (3.80-5.20)
[2017-04-27 00:52] LABS: WHITE BLOOD COUNT 1.8 K/uL (4.1-10.2)
[2017-04-27 09:14] LABS: HEMATOCRIT 21.9 % (36.0-46.0); MCV 84.6 FL (83-99)
[2017-04-27 09:23] LABS: EOSINOPHIL (%) 8.5 % (0-5); EOSINOPHIL COUNT 0.1 K/uL (0-0.3); IMMATURE GRANULOCYTE (%) 0.6 % (0.0-0.7); INSTRUMENT ABS NEUTROPHIL CT 1.1 K/uL; LYMPHOCYTE COUNT 0.2 K/uL (1.0-2.8); MONOCYTE (%) 7.9 % (3-12); MONOCYTE COUNT 0.1 K/uL (0-0.8); NEUTROPHIL (%) 69.1 % (45-76); NEUTROPHIL COUNT 1.1 K/uL (1.8-6.4)
[2017-04-27 09:38] LABS: ALKALINE PHOSPHATASE 232 IU/L (3-129); ANION GAP 10 MEQ/L (2-14); CHLORIDE 106 MEQ/L (99-109); DIRECT BILIRUBIN 0.3 mg/dL (0.0-0.3); GFR ESTIMATE (CALCULATED) 26 mL/min/; GLUCOSE 300 mg/dL (70-99); POTASSIUM 4.6 MEQ/L (3.7-5.4); SAMPLE HEMOLYSIS CHECK 0; SAMPLE ICTERIC CHECK 0; SAMPLE LIPEMIA CHECK 0; SODIUM 140 MEQ/L (136-147); UREA NITROGEN (BUN) 52 mg/dL (9-23)
[2017-04-27 09:56] LABS: ADD MIUA? NO; BILIRUBIN NEGATIVE; BLOOD NEGATIVE; COLOR YELLOW ((YELLOW)); GLUCOSE (STRIP) NEGATIVE; KETONES NEGATIVE; LEUKOCYTES NEGATIVE; NITRITE NEGATIVE; PROTEIN (STRIP) NEGATIVE; SPECIFIC GRAVITY 1.011 (1.000-1.030); UCUL ADDED? NO; UROBILINOGEN 0.2 MG/DL (0.2-1.0)
[2017-04-27] MEDS ORDERED: PROTONIX IV40 MG IV (15:19)
[2017-04-27] MEDS ORDERED: OCTREOTIDE500 MCG/2 IV (15:22)
[2017-04-27 16:19] LABS: POINT-OF-CARE METER ID UU13113725
== END 2017-04-27 20:38 | disposition short-term general hospital (02) | DRG 378 ==
LOC: EME 18:19 → EDOF 22:27 → 5EAST 22:27 → ENRESERV 22:30 → EDOF 04-27 01:05 → 5EAST 04-27 01:08
PROVIDERS: Hospitalist
PROC: 30233N1 Transfusion of Nonautologous Red Blood Cells into Peripheral Vein, Percutaneous Approach (ICD-10-PCS; principal; 2017-04-26)
PROC: 30233K1 Transfusion of Nonautologous Frozen Plasma into Peripheral Vein, Percutaneous Approach (ICD-10-PCS; 2017-04-27)
DX: K92.1 Melena (principal); D61.818 Other pancytopenia; E86.0 Dehydration; I13.2 Hypertensive heart and chronic kidney disease with heart failure and with stage 5 chronic kidney disease, or end stage renal disease; I50.9 Heart failure, unspecified; E11.22 Type 2 diabetes mellitus with diabetic chronic kidney disease; N18.3 Chronic kidney disease, stage 3 (moderate); E78.5 Hyperlipidemia, unspecified; K21.9 Gastro-esophageal reflux disease without esophagitis; E03.9 Hypothyroidism, unspecified; I85.00 Esophageal varices without bleeding; J45.909 Unspecified asthma, uncomplicated; K74.60 Unspecified cirrhosis of liver; R18.8 Other ascites; K76.6 Portal hypertension; K31.89 Other diseases of stomach and duodenum; M19.90 Unspecified osteoarthritis, unspecified site; I95.9 Hypotension, unspecified; K43.9 Ventral hernia without obstruction or gangrene; I25.10 Atherosclerotic heart disease of native coronary artery without angina pectoris; E66.9 Obesity, unspecified; Z87.891 Personal history of nicotine dependence; I25.2 Old myocardial infarction; Z68.30 Body mass index [BMI] 30.0-30.9, adult; Z95.0 Presence of cardiac pacemaker; Z76.82 Awaiting organ transplant status; Z86.010 Personal history of colon polyps; Z88.2 Allergy status to sulfonamides; Z91.041 Radiographic dye allergy status
CPT/HCPCS: 36415; 80048; 80053; 80076; 81003; 82105 90; 82948; 84630 90; 85014; 85018; 85025; 85027; 85610; 86850; 86900; 86901; 86920; 87493; 99202; 99281; 99284; C9113; J0696; J1815; J2354; J2405; J7030; J7040; J7050; P9016; P9035

== ENCOUNTER 2017-05-16 14:35 | Inpatient (IN) | payer OTHER ==
[~2017-05-16] VITALS: Ht 165.1 cm; Wt 73.7 kg
[~2017-05-16 14:35] MED LIST changes: +OCTREOTIDE500 MCG/2 IV; +PROTONIX IV40 MG IV
[2017-05-16 15:45] LABS: HEMATOCRIT 26.5 % (36.0-46.0); MCH 26.3 PG (29.0-34.0); MCHC 31.3 G/DL (30.0-36.0); MCV 84.1 FL (83-99); RBC DIS.WIDTH-CV 17.8 % (11.8-14.6); RBC DIS.WIDTH-SD 54.2 % (39-53); WHITE BLOOD COUNT 3.8 K/uL (4.1-10.2)
[2017-05-16 15:49] LABS: RED BLOOD COUNT 3.15 M/uL (3.80-5.20)
[2017-05-16 15:54] LABS: CHLORIDE 113 mEq/L (99-109); SODIUM 139 mEq/L (136-147)
[2017-05-16 15:55] LABS: GLUCOSE 268 mg/dL (70-99)
[2017-05-16 15:57] LABS: ANION GAP 11 MEQ/L (2-14)
[2017-05-16 15:59] LABS: GFR ESTIMATE (CALCULATED) 17 mL/min/
[2017-05-16 16:00] LABS: UREA NITROGEN (BUN) 65 mg/dL (9-23)
[2017-05-16 16:02] LABS: TROP-I INTERPRETATION NEGATIVE; TROPONIN-I 0.04 ng/mL (0.0-0.30)
[2017-05-16 16:19] LABS: TOTAL BILIRUBIN 0.6 mg/dL (0.0-1.0)
[2017-05-16 16:20] LABS: ALKALINE PHOSPHATASE 256 IU/L (3-129)
[2017-05-16 16:32] LABS: ADD MIUA? YES; BILIRUBIN NEGATIVE; BLOOD NEGATIVE; COLOR YELLOW ((YELLOW)); GLUCOSE (STRIP) NEGATIVE; KETONES NEGATIVE; LEUKOCYTES NEGATIVE; NITRITE NEGATIVE; PROTEIN (STRIP) NEGATIVE; SPECIFIC GRAVITY 1.011 (1.000-1.030); UROBILINOGEN 0.2 MG/DL (0.2-1.0)
[2017-05-16 16:38] LABS: MEAN PLAT.VOLUME 12.1 uM^3 (9.5-12.4); PLATELET COUNT 91 K/uL (156-360)
[2017-05-16 16:43] LABS: BACTERIA NONE SEEN /HPF; EPITHELIAL CELLS RARE /HPF; HYALINE CASTS 30-40 /LPF; MUCUS TRACE /LPF; RED BLOOD CELLS 0-5 /HPF (0-5); WHITE BLOOD CELLS 0-5 /HPF (0-5)
[2017-05-16 19:02] LABS: POTASSIUM 5.9 mEq/L (3.7-5.4)
[2017-05-16 19:29] VITALS: BP 132/51
[2017-05-16 19:58] VITALS: BP 137/48
[2017-05-16 20:58] VITALS: BP 162/67
[2017-05-16 21:59] VITALS: BP 157/60
[2017-05-16 22:37] VITALS: BP 185/76
[2017-05-16 22:49] LABS: POINT-OF-CARE METER ID UU14208750
[2017-05-17] VITALS (7 sets, daily range): BP systolic 120–174; BP diastolic 46–78
[2017-05-17 00:13] LABS: TROP-I INTERPRETATION NEGATIVE; TROPONIN-I 0.04 ng/mL (0.0-0.30)
[2017-05-17 00:16] LABS: CHLORIDE 113 mEq/L (99-109)
[2017-05-17 00:17] LABS: POTASSIUM 5.9 mEq/L (3.7-5.4); SODIUM 138 mEq/L (136-147)
[2017-05-17 00:19] LABS: GLUCOSE 151 mg/dL (70-99)
[2017-05-17 00:20] LABS: ANION GAP 10 MEQ/L (2-14)
[2017-05-17 00:21] LABS: TOTAL BILIRUBIN 0.6 mg/dL (0.0-1.0)
[2017-05-17 00:22] LABS: ALKALINE PHOSPHATASE 239 IU/L (3-129); GFR ESTIMATE (CALCULATED) 17 mL/min/
[2017-05-17 00:24] LABS: UREA NITROGEN (BUN) 69 mg/dL (9-23)
[2017-05-17 03:17] LABS: POINT-OF-CARE METER ID UU14208750
[2017-05-17 06:31] LABS: POINT-OF-CARE METER ID UU14208750
[2017-05-17 06:54] LABS: HEMATOCRIT 24.3 % (36.0-46.0); MCH 26.3 PG (29.0-34.0); MCHC 30.9 G/DL (30.0-36.0); MCV 85.3 FL (83-99); RBC DIS.WIDTH-CV 17.4 % (11.8-14.6); RBC DIS.WIDTH-SD 54.1 % (39-53); RED BLOOD COUNT 2.85 M/uL (3.80-5.20); WHITE BLOOD COUNT 2.2 K/uL (4.1-10.2)
[2017-05-17 07:10] LABS: ALKALINE PHOSPHATASE 239 IU/L (3-129); ANION GAP 9 MEQ/L (2-14); CHLORIDE 112 MEQ/L (99-109); GFR ESTIMATE (CALCULATED) 20 mL/min/; POTASSIUM 5.2 MEQ/L (3.7-5.4); SAMPLE HEMOLYSIS CHECK 0; SAMPLE ICTERIC CHECK 0; SAMPLE LIPEMIA CHECK 0; SODIUM 141 MEQ/L (136-147); TOTAL BILIRUBIN 0.8 MG/DL (0.0-1.0); UREA NITROGEN (BUN) 64 mg/dL (9-23)
[2017-05-17 07:11] LABS: GLUCOSE 105 mg/dL (70-99)
[2017-05-17 07:20] LABS: TROP-I INTERPRETATION NEGATIVE; TROPONIN-I 0.04 ng/mL (0.0-0.30)
[2017-05-17 07:47] LABS: PLATELET COUNT 63 K/uL (156-360)
[2017-05-17 11:48] LABS: INTERNAL CONTROL VALID? YES
[2017-05-17 12:05] LABS: POINT-OF-CARE METER ID UU14208750; POINT-OF-CARE USER ID PUTDRM
[2017-05-17 14:36] LABS: ALKALINE PHOSPHATASE 220 IU/L (3-129); ANION GAP 9 MEQ/L (2-14); CHLORIDE 111 MEQ/L (99-109); GFR ESTIMATE (CALCULATED) 20 mL/min/; POTASSIUM 5.4 MEQ/L (3.7-5.4); SAMPLE HEMOLYSIS CHECK 0; SAMPLE ICTERIC CHECK 0; SAMPLE LIPEMIA CHECK 0; SODIUM 139 MEQ/L (136-147); TOTAL BILIRUBIN 0.8 MG/DL (0.0-1.0); UREA NITROGEN (BUN) 59 mg/dL (9-23)
[2017-05-17 14:37] LABS: GLUCOSE 248 mg/dL (70-99)
[2017-05-17 16:49] LABS: POINT-OF-CARE METER ID UU14208750; POINT-OF-CARE USER ID PUTDRM
[2017-05-17 21:58] LABS: POINT-OF-CARE METER ID UU14162508
[2017-05-18] VITALS (14 sets, daily range): BP systolic 100–142; BP diastolic 56–68
[2017-05-18 03:04] LABS: POINT-OF-CARE METER ID UU14208750
[2017-05-18 07:06] LABS: POINT-OF-CARE METER ID UU14162508
[2017-05-18 07:39] LABS: HEMATOCRIT 23.2 % (36.0-46.0); MCH 25.8 PG (29.0-34.0); MCHC 30.2 G/DL (30.0-36.0); MCV 85.6 FL (83-99); MEAN PLAT.VOLUME 11.6 uM^3 (9.5-12.4); PLATELET COUNT 55 K/uL (156-360); RBC DIS.WIDTH-CV 17.4 % (11.8-14.6); RBC DIS.WIDTH-SD 54.5 % (39-53); RED BLOOD COUNT 2.71 M/uL (3.80-5.20)
[2017-05-18 08:07] LABS: ANION GAP 8 MEQ/L (2-14); CHLORIDE 111 MEQ/L (99-109); GFR ESTIMATE (CALCULATED) 19 mL/min/; GLUCOSE 152 mg/dL (70-99); POTASSIUM 5.7 MEQ/L (3.7-5.4); SAMPLE HEMOLYSIS CHECK 0; SAMPLE ICTERIC CHECK 0; SAMPLE LIPEMIA CHECK 0; SODIUM 140 MEQ/L (136-147); UREA NITROGEN (BUN) 58 mg/dL (9-23)
[2017-05-18 11:31] LABS: HEMATOCRIT 23.5 % (36.0-46.0); MCV 85.8 FL (83-99)
[2017-05-18 12:47] LABS: POINT-OF-CARE METER ID UU14162508
[2017-05-18 15:58] LABS: POINT-OF-CARE METER ID UU14162508
[2017-05-18 20:58] LABS: ANION GAP 11 MEQ/L (2-14); CHLORIDE 111 MEQ/L (99-109); GFR ESTIMATE (CALCULATED) 21 mL/min/; GLUCOSE 174 mg/dL (70-99); POTASSIUM 5.4 MEQ/L (3.7-5.4); SAMPLE HEMOLYSIS CHECK 0; SAMPLE ICTERIC CHECK 0; SAMPLE LIPEMIA CHECK 0; SODIUM 139 MEQ/L (136-147); UREA NITROGEN (BUN) 53 mg/dL (9-23)
[2017-05-18 22:01] LABS: POINT-OF-CARE METER ID UU14162508
[2017-05-19] VITALS (8 sets, daily range): BP systolic 120–154; BP diastolic 56–64
[2017-05-19 03:21] LABS: POINT-OF-CARE METER ID UU14162508
[2017-05-19 05:41] LABS: POINT-OF-CARE METER ID UU14162508
[2017-05-19 06:56] LABS: HEMATOCRIT 24.8 % (36.0-46.0); MCH 26.7 PG (29.0-34.0); MCV 86.1 FL (83-99); MEAN PLAT.VOLUME 11.9 uM^3 (9.5-12.4); PLATELET COUNT 57 K/uL (156-360); RBC DIS.WIDTH-CV 16.5 % (11.8-14.6); RBC DIS.WIDTH-SD 51.5 % (39-53); RED BLOOD COUNT 2.88 M/uL (3.80-5.20)
[2017-05-19 07:22] LABS: ANION GAP 7 MEQ/L (2-14); CHLORIDE 113 MEQ/L (99-109); GFR ESTIMATE (CALCULATED) 25 mL/min/; POTASSIUM 5.2 MEQ/L (3.7-5.4); SAMPLE HEMOLYSIS CHECK 0; SAMPLE ICTERIC CHECK 0; SAMPLE LIPEMIA CHECK 0; SODIUM 143 MEQ/L (136-147); UREA NITROGEN (BUN) 53 mg/dL (9-23)
[2017-05-19 07:31] LABS: GLUCOSE 105 mg/dL (70-99)
[2017-05-19 12:12] LABS: POINT-OF-CARE METER ID UU14162508
[2017-05-19 16:15] LABS: POINT-OF-CARE METER ID UU14162508
[2017-05-19 21:30] LABS: POINT-OF-CARE METER ID UU14208750
[2017-05-20 03:19] VITALS: BP 138/54
[2017-05-20 03:29] LABS: POINT-OF-CARE METER ID UU14162508
[2017-05-20 06:58] LABS: POINT-OF-CARE METER ID UU14162508
[2017-05-20 07:15] VITALS: BP 138/50
[2017-05-20 07:36] LABS: HEMATOCRIT 25.9 % (36.0-46.0); MCH 26.2 PG (29.0-34.0); MCHC 30.5 G/DL (30.0-36.0); RBC DIS.WIDTH-CV 16.8 % (11.8-14.6); RED BLOOD COUNT 3.01 M/uL (3.80-5.20)
[2017-05-20 07:59] LABS: ANION GAP 6 MEQ/L (2-14); CHLORIDE 114 MEQ/L (99-109); GFR ESTIMATE (CALCULATED) 28 mL/min/; GLUCOSE 89 mg/dL (70-99); POTASSIUM 5.7 MEQ/L (3.7-5.4); SAMPLE HEMOLYSIS CHECK 0; SAMPLE ICTERIC CHECK 0; SAMPLE LIPEMIA CHECK 0; SODIUM 142 MEQ/L (136-147); UREA NITROGEN (BUN) 42 mg/dL (9-23)
[2017-05-20 08:17] LABS: IMM.PLATELET FRACTION 2.8 (1-7); PLATELET COUNT 50 K/uL (156-360)
[2017-05-20 11:11] VITALS: BP 162/52
[2017-05-20 11:53] LABS: POINT-OF-CARE METER ID UU14162508; POINT-OF-CARE USER ID PUTDRM
[2017-05-20 13:15] VITALS: BP 158/62
[2017-05-20 16:20] LABS: POINT-OF-CARE METER ID UU14208750; POINT-OF-CARE USER ID PUTDRM
[2017-05-20 21:53] LABS: POINT-OF-CARE METER ID UU14162508
[2017-05-20 23:52] VITALS: BP 143/62
[2017-05-21 06:25] LABS: HEMATOCRIT 24.7 % (36.0-46.0); MCH 27.5 PG (29.0-34.0); MCHC 31.6 G/DL (30.0-36.0); RBC DIS.WIDTH-CV 16.7 % (11.8-14.6); RBC DIS.WIDTH-SD 53.1 % (39-53); RED BLOOD COUNT 2.84 M/uL (3.80-5.20)
[2017-05-21 06:26] LABS: WHITE BLOOD COUNT 1.9 K/uL (4.1-10.2)
[2017-05-21 06:29] LABS: ANION GAP 6 MEQ/L (2-14); CHLORIDE 113 MEQ/L (99-109); GFR ESTIMATE (CALCULATED) 30 mL/min/; GLUCOSE 109 mg/dL (70-99); POTASSIUM 5.4 MEQ/L (3.7-5.4); SAMPLE HEMOLYSIS CHECK 0; SAMPLE ICTERIC CHECK 0; SAMPLE LIPEMIA CHECK 0; SODIUM 141 MEQ/L (136-147); UREA NITROGEN (BUN) 41 mg/dL (9-23)
[2017-05-21 06:42] LABS: POINT-OF-CARE METER ID UU14208750
[2017-05-21 07:48] VITALS: BP 148/68
[2017-05-21 08:41] LABS: IMM.PLATELET FRACTION 2.9 (1-7); MEAN PLAT.VOLUME 12.3 uM^3 (9.5-12.4); PLATELET COUNT 48 K/uL (156-360)
[2017-05-21 08:42] LABS: PLAT.SUFFICIENCY DECREASED
[2017-05-21 11:39] LABS: POINT-OF-CARE METER ID UU14162508
[2017-05-21] MEDS ORDERED: NABI650T PO (11:39)
[2017-05-21] MEDS ORDERED: VELTASSA8.4 GM PO (11:39)
== END 2017-05-21 13:54 | disposition home or self-care (01) | DRG 683 ==
LOC: EME 14:35 → EDOF 20:56 → 2EASTP 20:56 → ENRESERV 20:58 → 2EASTP 22:07
PROVIDERS: Emergency Medicine; Internal Medicine; Physician Assistant
PROC: 30233N1 Transfusion of Nonautologous Red Blood Cells into Peripheral Vein, Percutaneous Approach (ICD-10-PCS; principal; 2017-05-18)
DX: N17.9 Acute kidney failure, unspecified (principal); E87.5 Hyperkalemia; E87.2 Acidosis; D61.818 Other pancytopenia; Z76.82 Awaiting organ transplant status; I13.0 Hypertensive heart and chronic kidney disease with heart failure and stage 1 through stage 4 chronic kidney disease, or unspecified chronic kidney disease; I50.9 Heart failure, unspecified; E11.22 Type 2 diabetes mellitus with diabetic chronic kidney disease; N18.3 Chronic kidney disease, stage 3 (moderate); K76.6 Portal hypertension; I85.00 Esophageal varices without bleeding; K74.69 Other cirrhosis of liver; K72.10 Chronic hepatic failure without coma; K75.81 Nonalcoholic steatohepatitis (NASH); R04.0 Epistaxis; R19.5 Other fecal abnormalities; K31.89 Other diseases of stomach and duodenum; I86.8 Varicose veins of other specified sites; E03.9 Hypothyroidism, unspecified; J45.909 Unspecified asthma, uncomplicated; K21.9 Gastro-esophageal reflux disease without esophagitis; I25.2 Old myocardial infarction; Z79.4 Long term (current) use of insulin; Z87.891 Personal history of nicotine dependence; Z95.0 Presence of cardiac pacemaker; Z86.010 Personal history of colon polyps
CPT/HCPCS: 71020; 80047; 80048; 80048 91; 80053; 81003; 82140; 82272; 82436; 82948; 84133; 84300; 84484; 85014; 85018; 85027; 86850; 86860; 86870; 86880; 86900; 86901; 86905; 86920; 92526 GN; 92610 GN; 93005; 94640; 99281; 99285; J0610; J1644; J1815; J2405; J7030; J7050; P9040; P9047

== ENCOUNTER 2017-05-29 17:08 | Inpatient (IN) | payer OTHER ==
[~2017-05-29] VITALS: Ht 165.1 cm; Wt 78.4 kg
[~2017-05-29 17:08] MED LIST changes: +VELTASSA8.4 GM PO
[2017-05-29 17:58] LABS: HEMATOCRIT 29.5 % (36.0-46.0); MCH 26.6 PG (29.0-34.0); MCHC 30.5 G/DL (30.0-36.0); MCV 87.3 FL (83-99); RBC DIS.WIDTH-CV 17.4 % (11.8-14.6); RBC DIS.WIDTH-SD 56.2 % (39-53); RED BLOOD COUNT 3.38 M/uL (3.80-5.20); WHITE BLOOD COUNT 3.4 K/uL (4.1-10.2)
[2017-05-29 18:04] LABS: CHLORIDE 112 mEq/L (99-109); SODIUM 136 mEq/L (136-147)
[2017-05-29 18:06] LABS: GLUCOSE 246 mg/dL (70-99)
[2017-05-29 18:07] LABS: MEAN PLAT.VOLUME 12.3 uM^3 (9.5-12.4); PLATELET COUNT 74 K/uL (156-360)
[2017-05-29 18:08] LABS: ANION GAP 11 MEQ/L (2-14); TOTAL BILIRUBIN 0.7 mg/dL (0.0-1.0)
[2017-05-29 18:10] LABS: ALKALINE PHOSPHATASE 273 IU/L (3-129)
[2017-05-29 18:12] LABS: GFR ESTIMATE (CALCULATED) 12 mL/min/; UREA NITROGEN (BUN) 86 mg/dL (9-23)
[2017-05-29 18:14] LABS: LIPASE 78 U/L (1.0-51.0)
[2017-05-29 18:19] LABS: TROP-I INTERPRETATION NEGATIVE; TROPONIN-I 0.01 ng/mL (0.0-0.30)
[2017-05-29 18:21] LABS: ADD MIUA? YES; BILIRUBIN NEGATIVE; BLOOD NEGATIVE; COLOR YELLOW ((YELLOW)); GLUCOSE (STRIP) NEGATIVE; KETONES NEGATIVE; LEUKOCYTES TRACE; NITRITE NEGATIVE; PROTEIN (STRIP) NEGATIVE; SPECIFIC GRAVITY 1.014 (1.000-1.030); UROBILINOGEN 0.2 MG/DL (0.2-1.0)
[2017-05-29 18:27] LABS: BACTERIA RARE /HPF; EPITHELIAL CELLS 1+ /HPF; GRANULAR CASTS 0-5 /LPF; MUCUS TRACE /LPF; RED BLOOD CELLS 0-5 /HPF (0-5)
[2017-05-29 18:31] LABS: POTASSIUM 6.5 mEq/L (3.7-5.4)
[2017-05-29 19:26] LABS: POINT-OF-CARE METER ID UU13113702
[2017-05-29 22:16] LABS: CHLORIDE 114 mEq/L (99-109); SODIUM 136 mEq/L (136-147)
[2017-05-29 22:19] LABS: ANION GAP 9 MEQ/L (2-14)
[2017-05-29 22:21] LABS: GFR ESTIMATE (CALCULATED) 12 mL/min/
[2017-05-29 22:22] LABS: UREA NITROGEN (BUN) 83 mg/dL (9-23)
[2017-05-29 22:28] LABS: GLUCOSE 111 mg/dL (70-99)
[2017-05-29 22:29] LABS: POTASSIUM 6.1 mEq/L (3.7-5.4)
[2017-05-29 23:23] VITALS: BP 168/68
[2017-05-30 03:47] VITALS: BP 133/88
[2017-05-30 05:46] LABS: HEMATOCRIT 25.3 % (36.0-46.0); MCH 26.5 PG (29.0-34.0); MCV 88.2 FL (83-99); PLATELET COUNT 54 K/uL (156-360); RBC DIS.WIDTH-CV 17.5 % (11.8-14.6); RED BLOOD COUNT 2.87 M/uL (3.80-5.20); WHITE BLOOD COUNT 2.5 K/uL (4.1-10.2)
[2017-05-30 06:16] LABS: ANION GAP 10 MEQ/L (2-14); CHLORIDE 113 MEQ/L (99-109); GFR ESTIMATE (CALCULATED) 13 mL/min/; POTASSIUM 5.7 MEQ/L (3.7-5.4); SAMPLE HEMOLYSIS CHECK 0; SAMPLE ICTERIC CHECK 0; SAMPLE LIPEMIA CHECK 0; SODIUM 139 MEQ/L (136-147); UREA NITROGEN (BUN) 80 mg/dL (9-23); URIC ACID 8.3 mg/dL (3.1-9.2)
[2017-05-30 06:19] LABS: GLUCOSE 197 mg/dL (70-99)
[2017-05-30 08:00] VITALS: BP 141/78
[2017-05-30 08:17] LABS: POINT-OF-CARE METER ID UU13113698; POINT-OF-CARE USER ID ENVKC36
[2017-05-30 11:32] LABS: POINT-OF-CARE METER ID UU14174216; POINT-OF-CARE USER ID ENVKC36
[2017-05-30 11:57] VITALS: BP 129/87
[2017-05-30 16:00] VITALS: BP 127/76
[2017-05-30 16:45] LABS: POINT-OF-CARE METER ID UU14314088; POINT-OF-CARE USER ID ENVKC36
[2017-05-30 21:00] VITALS: BP 158/70
[2017-05-30 21:01] LABS: POINT-OF-CARE METER ID UU14174216
[2017-05-31] VITALS (14 sets, daily range): BP systolic 131–180; BP diastolic 63–78
[2017-05-31 05:43] LABS: SAMPLE HEMOLYSIS CHECK 0; SAMPLE ICTERIC CHECK 0; SAMPLE LIPEMIA CHECK 0
[2017-05-31 05:49] LABS: HEMATOCRIT 22.7 % (36.0-46.0); MCH 26.5 PG (29.0-34.0); MCHC 30.4 G/DL (30.0-36.0); MCV 87.3 FL (83-99); RBC DIS.WIDTH-CV 17.4 % (11.8-14.6); RBC DIS.WIDTH-SD 56.5 % (39-53)
[2017-05-31 05:50] LABS: WHITE BLOOD COUNT 1.8 K/uL (4.1-10.2)
[2017-05-31 06:09] LABS: EOSINOPHIL (%) 8.3 % (0-5); EOSINOPHIL COUNT 0.2 K/uL (0-0.3); IMM.PLATELET FRACTION 2.1 (1-7); IMMATURE GRANULOCYTE (%) 0.6 % (0.0-0.7); INSTRUMENT ABS NEUTROPHIL CT 1.2 K/uL; LYMPHOCYTE COUNT 0.2 K/uL (1.0-2.8); MEAN PLAT.VOLUME 11.9 uM^3 (9.5-12.4); MONOCYTE (%) 10.5 % (3-12); MONOCYTE COUNT 0.2 K/uL (0-0.8); NEUTROPHIL (%) 67.3 % (45-76); NEUTROPHIL COUNT 1.2 K/uL (1.8-6.4); PLAT.SUFFICIENCY DECREASED; PLATELET COUNT 44 K/uL (156-360)
[2017-05-31 07:42] LABS: POINT-OF-CARE METER ID UU14314088
[2017-05-31 07:48] LABS: ANION GAP 10 MEQ/L (2-14); CHLORIDE 115 MEQ/L (99-109); GFR ESTIMATE (CALCULATED) 16 mL/min/; GLUCOSE 111 mg/dL (70-99); POTASSIUM 5.2 MEQ/L (3.7-5.4); SODIUM 145 MEQ/L (136-147); UREA NITROGEN (BUN) 69 mg/dL (9-23)
[2017-05-31 11:29] LABS: POINT-OF-CARE METER ID UU13113698
[2017-05-31 16:51] LABS: POINT-OF-CARE METER ID UU13113698
[2017-05-31 18:28] LABS: IRON 28 MCG/DL (35-150)
[2017-05-31 20:00] LABS: INTER. NORMALIZED RATIO 1.3; PROTHROMBIN TIME 14.2 SEC (10.2-12.9)
[2017-05-31 20:03] LABS: PTT 32.2 SEC (25-37)
[2017-05-31 20:08] LABS: HEMATOCRIT 27.7 % (36.0-46.0); MCH 27.9 PG (29.0-34.0); MCHC 32.1 G/DL (30.0-36.0); MCV 86.8 FL (83-99); MEAN PLAT.VOLUME 11.8 uM^3 (9.5-12.4); PLATELET COUNT 51 K/uL (156-360); RBC DIS.WIDTH-CV 16.8 % (11.8-14.6); RBC DIS.WIDTH-SD 53.6 % (39-53); RED BLOOD COUNT 3.19 M/uL (3.80-5.20); WHITE BLOOD COUNT 2.3 K/uL (4.1-10.2)
[2017-05-31 21:44] LABS: POINT-OF-CARE METER ID UU14174216
[2017-06-01 04:32] VITALS: BP 156/65
[2017-06-01 05:16] LABS: HEMATOCRIT 26.6 % (36.0-46.0); MCV 87.5 FL (83-99); RBC DIS.WIDTH-CV 16.8 % (11.8-14.6); RED BLOOD COUNT 3.04 M/uL (3.80-5.20); WHITE BLOOD COUNT 2.2 K/uL (4.1-10.2)
[2017-06-01 05:44] LABS: ANION GAP 8 MEQ/L (2-14); CHLORIDE 115 MEQ/L (99-109); GFR ESTIMATE (CALCULATED) 20 mL/min/; GLUCOSE 91 mg/dL (70-99); POTASSIUM 5.2 MEQ/L (3.7-5.4); SAMPLE HEMOLYSIS CHECK 0; SAMPLE ICTERIC CHECK 0; SAMPLE LIPEMIA CHECK 0; SODIUM 144 MEQ/L (136-147); UREA NITROGEN (BUN) 61 mg/dL (9-23)
[2017-06-01 06:01] LABS: IMM.PLATELET FRACTION 2.1 (1-7); MEAN PLAT.VOLUME 11.3 uM^3 (9.5-12.4); PLAT.SUFFICIENCY VERY DECREASED; PLATELET COUNT 46 K/uL (156-360)
[2017-06-01 08:03] LABS: FERRITIN 47 NG/ML (10-291)
[2017-06-01 08:15] LABS: POINT-OF-CARE METER ID UU14174216; POINT-OF-CARE USER ID NUTSLF44
[2017-06-01 08:48] VITALS: BP 147/89
[2017-06-01 11:19] VITALS: BP 137/78
[2017-06-01 11:30] LABS: POINT-OF-CARE METER ID UU14174216; POINT-OF-CARE USER ID NUTSLF44
[2017-06-01 11:31] LABS: INTERNAL CONTROL VALID? YES
[2017-06-01 12:53] LABS: HEMATOCRIT 29.9 % (36.0-46.0); MCH 27.5 PG (29.0-34.0); MCHC 31.4 G/DL (30.0-36.0); MCV 87.4 FL (83-99); MEAN PLAT.VOLUME 11.4 uM^3 (9.5-12.4); PLATELET COUNT 54 K/uL (156-360); RBC DIS.WIDTH-CV 17.1 % (11.8-14.6); RBC DIS.WIDTH-SD 54.6 % (39-53); RED BLOOD COUNT 3.42 M/uL (3.80-5.20); WHITE BLOOD COUNT 2.5 K/uL (4.1-10.2)
[2017-06-01 15:50] VITALS: BP 158/77
[2017-06-01 16:47] LABS: POINT-OF-CARE METER ID UU14174216
[2017-06-01 20:30] VITALS: BP 142/65
[2017-06-01 20:58] LABS: POINT-OF-CARE METER ID UU14314088
[2017-06-02 03:04] VITALS: BP 140/74
[2017-06-02 05:30] LABS: HEMATOCRIT 26.7 % (36.0-46.0); MCHC 31.8 G/DL (30.0-36.0); MCV 87.8 FL (83-99); RBC DIS.WIDTH-SD 53.9 % (39-53); RED BLOOD COUNT 3.04 M/uL (3.80-5.20); WHITE BLOOD COUNT 2.6 K/uL (4.1-10.2)
[2017-06-02 05:52] LABS: ANION GAP 8 MEQ/L (2-14); CHLORIDE 114 MEQ/L (99-109); GFR ESTIMATE (CALCULATED) 24 mL/min/; GLUCOSE 109 mg/dL (70-99); POTASSIUM 5.6 MEQ/L (3.7-5.4); SAMPLE HEMOLYSIS CHECK 0; SAMPLE ICTERIC CHECK 0; SAMPLE LIPEMIA CHECK 0; SODIUM 143 MEQ/L (136-147); UREA NITROGEN (BUN) 50 mg/dL (9-23)
[2017-06-02 06:57] LABS: IMM.PLATELET FRACTION 2.1 (1-7); PLAT.SUFFICIENCY VERY DECREASED; PLATELET COUNT 45 K/uL (156-360)
[2017-06-02 07:26] VITALS: BP 167/72
[2017-06-02 07:41] LABS: POINT-OF-CARE METER ID UU13113698
[2017-06-02 10:19] LABS: POINT-OF-CARE METER ID UU13113698
[2017-06-02 11:21] VITALS: BP 170/72
[2017-06-02 11:33] LABS: POINT-OF-CARE METER ID UU13113698
[2017-06-02 14:34] LABS: ANION GAP 8 MEQ/L (2-14); CHLORIDE 113 MEQ/L (99-109); GFR ESTIMATE (CALCULATED) 26 mL/min/; GLUCOSE 195 mg/dL (70-99); POTASSIUM 4.9 MEQ/L (3.7-5.4); SAMPLE HEMOLYSIS CHECK 0; SAMPLE ICTERIC CHECK 0; SAMPLE LIPEMIA CHECK 0; SODIUM 142 MEQ/L (136-147); UREA NITROGEN (BUN) 45 mg/dL (9-23)
[2017-06-02 14:44] LABS: INTERNAL CONTROL VALID? YES
[2017-06-02 15:24] VITALS: BP 165/70
[2017-06-02 16:19] LABS: POINT-OF-CARE METER ID UU13113698
[2017-06-02 19:40] VITALS: BP 174/73
[2017-06-02 20:45] LABS: POINT-OF-CARE METER ID UU14174216
[2017-06-02 23:39] VITALS: BP 164/72
[2017-06-03 03:53] VITALS: BP 158/65
[2017-06-03 06:04] LABS: MCH 27.8 PG (29.0-34.0); MCHC 31.5 G/DL (30.0-36.0); MCV 88.1 FL (83-99); RBC DIS.WIDTH-CV 16.7 % (11.8-14.6); RBC DIS.WIDTH-SD 54.4 % (39-53); RED BLOOD COUNT 2.95 M/uL (3.80-5.20); WHITE BLOOD COUNT 1.9 K/uL (4.1-10.2)
[2017-06-03 06:15] LABS: ANION GAP 7 MEQ/L (2-14); CHLORIDE 113 MEQ/L (99-109); GFR ESTIMATE (CALCULATED) 28 mL/min/; POTASSIUM 4.9 MEQ/L (3.7-5.4); SAMPLE HEMOLYSIS CHECK 0; SAMPLE ICTERIC CHECK 0; SAMPLE LIPEMIA CHECK 0; SODIUM 143 MEQ/L (136-147); UREA NITROGEN (BUN) 44 mg/dL (9-23)
[2017-06-03 06:16] LABS: GLUCOSE 85 mg/dL (70-99)
[2017-06-03 06:49] LABS: IMM.PLATELET FRACTION 3.2 (1-7); MEAN PLAT.VOLUME 10.8 uM^3 (9.5-12.4); PLAT.SUFFICIENCY DECREASED; PLATELET COUNT 42 K/uL (156-360)
[2017-06-03 06:57] LABS: EOSINOPHIL (%) 11.5 % (0-5); EOSINOPHIL COUNT 0.2 K/uL (0-0.3); IMMATURE GRANULOCYTE (%) 0.5 % (0.0-0.7); INSTRUMENT ABS NEUTROPHIL CT 1.2 K/uL; LYMPHOCYTE COUNT 0.3 K/uL (1.0-2.8); MONOCYTE (%) 11.5 % (3-12); MONOCYTE COUNT 0.2 K/uL (0-0.8); NEUTROPHIL (%) 61.9 % (45-76); NEUTROPHIL COUNT 1.2 K/uL (1.8-6.4)
[2017-06-03 07:56] LABS: POINT-OF-CARE METER ID UU13113698; POINT-OF-CARE USER ID NUTSLF44
[2017-06-03 08:44] VITALS: BP 172/72
[2017-06-03] MEDS ORDERED: VELTASSA8.4 GM PO (09:49)
[2017-06-03] MEDS ORDERED: NABI650T PO (09:50)
[2017-06-03 11:13] VITALS: BP 151/64
[2017-06-03 11:22] LABS: POINT-OF-CARE METER ID UU14174216; POINT-OF-CARE USER ID NUTSLF44
[2017-06-03 11:25] VITALS: BP 130/74
== END 2017-06-03 15:18 | disposition home or self-care (01) | DRG 682 ==
LOC: EME 17:08 → 4EAST 20:50 → EDOF 20:50 → ENRESERV 20:51 → 4EAST 23:02
PROVIDERS: Hospitalist; Internal Medicine; Internal Medicine Nephrology; Physician Assistant; Specialist
PROC: 30233N1 Transfusion of Nonautologous Red Blood Cells into Peripheral Vein, Percutaneous Approach (ICD-10-PCS; principal; 2017-05-31)
DX: N17.9 Acute kidney failure, unspecified (principal); K76.7 Hepatorenal syndrome; E78.5 Hyperlipidemia, unspecified; K72.10 Chronic hepatic failure without coma; K92.2 Gastrointestinal hemorrhage, unspecified; D61.818 Other pancytopenia; E87.2 Acidosis; I13.2 Hypertensive heart and chronic kidney disease with heart failure and with stage 5 chronic kidney disease, or end stage renal disease; E87.1 Hypo-osmolality and hyponatremia; E11.22 Type 2 diabetes mellitus with diabetic chronic kidney disease; E03.9 Hypothyroidism, unspecified; I85.00 Esophageal varices without bleeding; E87.5 Hyperkalemia; D50.0 Iron deficiency anemia secondary to blood loss (chronic); I50.30 Unspecified diastolic (congestive) heart failure; E83.39 Other disorders of phosphorus metabolism; K74.69 Other cirrhosis of liver; M19.90 Unspecified osteoarthritis, unspecified site; K55.20 Angiodysplasia of colon without hemorrhage; Z95.0 Presence of cardiac pacemaker; R18.8 Other ascites; J98.11 Atelectasis; M10.9 Gout, unspecified; K31.89 Other diseases of stomach and duodenum; J45.909 Unspecified asthma, uncomplicated; K21.0 Gastro-esophageal reflux disease with esophagitis; D73.1 Hypersplenism; D75.89 Other specified diseases of blood and blood-forming organs; Z68.28 Body mass index [BMI] 28.0-28.9, adult; Z90.49 Acquired absence of other specified parts of digestive tract; Z87.891 Personal history of nicotine dependence; Z85.028 Personal history of other malignant neoplasm of stomach; Z87.442 Personal history of urinary calculi; Z76.82 Awaiting organ transplant status; I25.2 Old myocardial infarction; Z80.3 Family history of malignant neoplasm of breast; Z80.42 Family history of malignant neoplasm of prostate; Z82.49 Family history of ischemic heart disease and other diseases of the circulatory system
CPT/HCPCS: 71010; 76705; 80048; 80048 91; 80053; 80069; 81003; 82140; 82272; 82728; 82948; 83540; 83690; 84300; 84466; 84484; 84550; 85025; 85027; 85610; 85730; 86060; 86063; 86850; 86860; 86870; 86880; 86900; 86901; 86905; 86920; 90686; 93005; 99281; 99285; C9113; J1815; J7040; J7120; P9016; P9047

== ENCOUNTER 2017-08-16 17:00 | Inpatient (IN) | payer OTHER ==
[~2017-08-16] VITALS: Ht 165.1 cm; Wt 76.1 kg
[~2017-08-16 17:00] MED LIST changes: -CENTRUM SILVER1 EAC4 PO
[2017-08-16 18:13] LABS: EOSINOPHIL (%) 11.3 % (0-5); EOSINOPHIL COUNT 0.3 K/uL (0-0.3); HEMATOCRIT 19.4 % (36.0-46.0); IMMATURE GRANULOCYTE (%) 0.3 % (0.0-0.7); LYMPHOCYTE COUNT 0.4 K/uL (1.0-2.8); MCH 26.6 PG (29.0-34.0); MCV 83.3 FL (83-99); MEAN PLAT.VOLUME 11.8 uM^3 (9.5-12.4); MONOCYTE (%) 5.8 % (3-12); MONOCYTE COUNT 0.2 K/uL (0-0.8); NEUTROPHIL (%) 69.6 % (45-76); PLATELET COUNT 75 K/uL (156-360); RBC DIS.WIDTH-CV 15.3 % (11.8-14.6); RBC DIS.WIDTH-SD 46.6 % (39-53); RED BLOOD COUNT 2.33 M/uL (3.80-5.20); WHITE BLOOD COUNT 2.9 K/uL (4.1-10.2)
[2017-08-16 18:23] LABS: CHLORIDE 103 mEq/L (99-109); POTASSIUM 4.5 mEq/L (3.7-5.4); SODIUM 133 mEq/L (136-147)
[2017-08-16 18:26] LABS: ANION GAP 11 MEQ/L (2-14)
[2017-08-16 18:28] LABS: GFR ESTIMATE (CALCULATED) 19 mL/min/
[2017-08-16 18:29] LABS: UREA NITROGEN (BUN) 56 mg/dL (9-23)
[2017-08-16 18:32] LABS: GLUCOSE 529 mg/dL (70-99)
[2017-08-16 20:03] LABS: ALKALINE PHOSPHATASE 209 IU/L (3-129); TOTAL BILIRUBIN 0.5 mg/dL (0.0-1.0)
[2017-08-16 20:05] LABS: DIRECT BILIRUBIN 0.3 mg/dL (0.0-0.3)
[2017-08-16 20:06] LABS: LIPASE 63 U/L (1.0-51.0)
[2017-08-16 20:16] LABS: CARBON DIOXIDE (BICARBONATE) 23.5 MEQ/L (20-31)
[2017-08-16 22:04] LABS: ABS NEUTROPHIL COUNT 2.3; ANISOCYTOSIS 1+; BAND NEUTROPHILS 6.2 % (0-8.0); BASOPHILS 0.9 %; EOSINOPHIL ABS CT 0.2; EOSINOPHILS 6.2 % (0-5.0); GIANT PLATELETS 1+; HYPOCHROMASIA 2+; LYMPHOCYTES 11.5 % (15.0-45.0); MICROCYTOSIS 1+; PLAT.SUFFICIENCY DECREASED; POIKILOCYTOSIS 1+; SEG.NEUTROPHILS 72.6 % (46.0-76.0); TEAR DROP CELLS 1+
[2017-08-16] MEDS ORDERED: VELTASSA8.4 GM PO (22:17)
[2017-08-16] MEDS ORDERED: TUMS500 MG PO (22:21)
[2017-08-16] MEDS ORDERED: PROPRANOLOL HCL20 MG PO (22:25)
[2017-08-16] MEDS ORDERED: HYDROXYZINE HCL25 MG PO (22:26)
[2017-08-16] MEDS ORDERED: CENTRUM SILVER1 EAC4 PO (22:27)
[2017-08-16 22:45] LABS: ADD MIUA? NO; BILIRUBIN NEGATIVE; BLOOD NEGATIVE; COLOR YELLOW ((YELLOW)); GLUCOSE (STRIP) >=500; KETONES NEGATIVE; LEUKOCYTES NEGATIVE; NITRITE NEGATIVE; PROTEIN (STRIP) NEGATIVE; SPECIFIC GRAVITY 1.007 (1.000-1.030); UCUL ADDED? NO; UROBILINOGEN 0.2 MG/DL (0.2-1.0)
[2017-08-16 23:43] LABS: CHLORIDE 109 mEq/L (99-109); HEMATOCRIT 16.6 % (36.0-46.0); MCH 25.9 PG (29.0-34.0); MCHC 31.3 G/DL (30.0-36.0); MCV 82.6 FL (83-99); MEAN PLAT.VOLUME 11.4 uM^3 (9.5-12.4); PLATELET COUNT 59 K/uL (156-360); POTASSIUM 3.8 mEq/L (3.7-5.4); RBC DIS.WIDTH-CV 15.4 % (11.8-14.6); RBC DIS.WIDTH-SD 46.6 % (39-53); RED BLOOD COUNT 2.01 M/uL (3.80-5.20); SODIUM 139 mEq/L (136-147)
[2017-08-16 23:46] LABS: ANION GAP 12 MEQ/L (2-14)
[2017-08-16 23:49] LABS: GFR ESTIMATE (CALCULATED) 23 mL/min/
[2017-08-17] VITALS (22 sets, daily range): BP systolic 131–189; BP diastolic 50–92
[2017-08-17 00:06] LABS: UREA NITROGEN (BUN) 50 mg/dL (9-23)
[2017-08-17 00:10] LABS: GLUCOSE 238 mg/dL (70-99)
[2017-08-17 00:29] LABS: POINT-OF-CARE METER ID UU14100415; POINT-OF-CARE USER ID 608261302
[2017-08-17 03:34] LABS: POINT-OF-CARE METER ID UU13113698; POINT-OF-CARE USER ID 608261316
[2017-08-17 06:15] LABS: POINT-OF-CARE METER ID UU13113781
[2017-08-17 07:40] LABS: POINT-OF-CARE METER ID UU13113778
[2017-08-17 07:40] LABS: POINT-OF-CARE METER ID UU13113800
[2017-08-17 09:55] LABS: POINT-OF-CARE METER ID UU13113698
[2017-08-17 15:39] LABS: INTER. NORMALIZED RATIO 1.1; PROTHROMBIN TIME 12.6 SEC (10.2-12.9)
[2017-08-17 15:42] LABS: PTT 31.9 SEC (25-37)
[2017-08-17 16:12] LABS: ANION GAP 12 MEQ/L (2-14); CHLORIDE 110 MEQ/L (99-109); GFR ESTIMATE (CALCULATED) 26 mL/min/; POTASSIUM 3.8 MEQ/L (3.7-5.4); SAMPLE HEMOLYSIS CHECK 0; SAMPLE ICTERIC CHECK 0; SAMPLE LIPEMIA CHECK 0; SODIUM 143 MEQ/L (136-147); UREA NITROGEN (BUN) 46 mg/dL (9-23)
[2017-08-17 16:14] LABS: GLUCOSE 29 mg/dL (70-99)
[2017-08-17 16:23] LABS: HEMATOLOGY COMMENT 1 SN; PLAT.SUFFICIENCY DECREASED
[2017-08-17 16:25] LABS: HEMATOCRIT 29.5 % (36.0-46.0); MCH 25.7 PG (29.0-34.0); MCHC 31.5 G/DL (30.0-36.0); MCV 81.5 FL (83-99); MEAN PLAT.VOLUME 11.3 uM^3 (9.5-12.4); PLATELET COUNT 102 K/uL (156-360); RBC DIS.WIDTH-CV 14.8 % (11.8-14.6); RBC DIS.WIDTH-SD 43.5 % (39-53); RED BLOOD COUNT 3.62 M/uL (3.80-5.20); WHITE BLOOD COUNT 4.5 K/uL (4.1-10.2)
[2017-08-17 16:50] LABS: POINT-OF-CARE METER ID UU13113698
[2017-08-17 19:13] LABS: IRON 115 MCG/DL (35-150)
[2017-08-17 19:18] LABS: POINT-OF-CARE METER ID UU13113698
[2017-08-17 19:31] LABS: FERRITIN 21 NG/ML (10-291)
[2017-08-17 22:08] LABS: POINT-OF-CARE METER ID UU14314088
[2017-08-17 22:50] LABS: INTERNAL CONTROL VALID? YES
[2017-08-17 23:51] LABS: HEMATOCRIT 26.8 % (36.0-46.0); MCH 26.2 PG (29.0-34.0); MCHC 32.1 G/DL (30.0-36.0); MCV 81.7 FL (83-99); RBC DIS.WIDTH-CV 14.9 % (11.8-14.6); RBC DIS.WIDTH-SD 43.5 % (39-53); RED BLOOD COUNT 3.28 M/uL (3.80-5.20); WHITE BLOOD COUNT 3.2 K/uL (4.1-10.2)
[2017-08-18] VITALS (13 sets, daily range): BP systolic 116–175; BP diastolic 58–84
[2017-08-18 00:52] LABS: MEAN PLAT.VOLUME 10.1 uM^3 (9.5-12.4); PLAT.SUFFICIENCY DECREASED; PLATELET COUNT 69 K/uL (156-360)
[2017-08-18 02:21] LABS: POINT-OF-CARE METER ID UU14174216
[2017-08-18 05:42] LABS: POINT-OF-CARE METER ID UU13113698
[2017-08-18 07:56] LABS: POINT-OF-CARE METER ID UU13113698
[2017-08-18 08:22] LABS: INTERNAL CONTROL VALID? YES
[2017-08-18 09:12] LABS: HEMATOCRIT 25.5 % (36.0-46.0); MCH 25.9 PG (29.0-34.0); MCV 83.6 FL (83-99); MEAN PLAT.VOLUME 11.9 uM^3 (9.5-12.4); PLATELET COUNT 64 K/uL (156-360); RBC DIS.WIDTH-CV 15.5 % (11.8-14.6); RBC DIS.WIDTH-SD 46.7 % (39-53); RED BLOOD COUNT 3.05 M/uL (3.80-5.20); WHITE BLOOD COUNT 2.4 K/uL (4.1-10.2)
[2017-08-18 09:35] LABS: POINT-OF-CARE METER ID UU13113698
[2017-08-18 09:36] LABS: ANION GAP 9 MEQ/L (2-14); CHLORIDE 107 MEQ/L (99-109); GFR ESTIMATE (CALCULATED) 28 mL/min/; POTASSIUM 3.8 MEQ/L (3.7-5.4); SAMPLE HEMOLYSIS CHECK 0; SAMPLE ICTERIC CHECK 0; SAMPLE LIPEMIA CHECK 0; SODIUM 141 MEQ/L (136-147); UREA NITROGEN (BUN) 42 mg/dL (9-23)
[2017-08-18 09:40] LABS: GLUCOSE 94 mg/dL (70-99)
[2017-08-18 09:44] LABS: POC NON-PRINT COM 1 ND
[2017-08-18 10:47] LABS: POINT-OF-CARE METER ID UU13113698
[2017-08-18 16:29] LABS: HEMATOCRIT 24.4 % (36.0-46.0); MCH 27.1 PG (29.0-34.0); MCV 84.7 FL (83-99); RBC DIS.WIDTH-CV 15.4 % (11.8-14.6); RBC DIS.WIDTH-SD 47.1 % (39-53); RED BLOOD COUNT 2.88 M/uL (3.80-5.20); WHITE BLOOD COUNT 2.3 K/uL (4.1-10.2)
[2017-08-18 17:03] LABS: IMM.PLATELET FRACTION 2.7 (1-7); MEAN PLAT.VOLUME 10.9 uM^3 (9.5-12.4); PLAT.SUFFICIENCY DECREASED; PLATELET COUNT 46 K/uL (156-360)
[2017-08-18 17:25] LABS: IMM.RETIC FRACTION 16.8 % (3-19); RETIC HGB EQUIVALENT 17.8 (28-36); RETICULOCYTE COUNT 2.8 % (0.5-1.8)
[2017-08-18 18:09] LABS: POINT-OF-CARE METER ID UU14174216
[2017-08-18 22:39] LABS: POINT-OF-CARE METER ID UU13113698
[2017-08-19] VITALS (14 sets, daily range): BP systolic 116–161; BP diastolic 56–81
[2017-08-19 00:43] LABS: HEMATOCRIT 24.3 % (36.0-46.0); MCH 26.4 PG (29.0-34.0); MCHC 32.1 G/DL (30.0-36.0); MCV 82.4 FL (83-99); RBC DIS.WIDTH-CV 14.9 % (11.8-14.6); RBC DIS.WIDTH-SD 44.2 % (39-53); RED BLOOD COUNT 2.95 M/uL (3.80-5.20); WHITE BLOOD COUNT 2.8 K/uL (4.1-10.2)
[2017-08-19 00:49] LABS: IMM.PLATELET FRACTION 3.4 (1-7); MEAN PLAT.VOLUME 11.9 uM^3 (9.5-12.4); PLATELET COUNT 51 K/uL (156-360)
[2017-08-19 02:34] LABS: POINT-OF-CARE METER ID UU14174216
[2017-08-19 03:30] LABS: POINT-OF-CARE METER ID UU13113781
[2017-08-19 05:52] LABS: EOSINOPHIL (%) 11.1 % (0-5); EOSINOPHIL COUNT 0.3 K/uL (0-0.3); HEMATOCRIT 24.5 % (36.0-46.0); IMMATURE GRANULOCYTE (%) 0.3 % (0.0-0.7); INSTRUMENT ABS NEUTROPHIL CT 1.9 K/uL; LYMPHOCYTE COUNT 0.4 K/uL (1.0-2.8); MCH 26.5 PG (29.0-34.0); MCHC 31.8 G/DL (30.0-36.0); MCV 83.3 FL (83-99); MEAN PLAT.VOLUME 12.8 uM^3 (9.5-12.4); MONOCYTE (%) 9.8 % (3-12); MONOCYTE COUNT 0.3 K/uL (0-0.8); NEUTROPHIL COUNT 1.9 K/uL (1.8-6.4); PLATELET COUNT 56 K/uL (156-360); RBC DIS.WIDTH-SD 45.7 % (39-53); RED BLOOD COUNT 2.94 M/uL (3.80-5.20)
[2017-08-19 06:18] LABS: ANION GAP 6 MEQ/L (2-14); CHLORIDE 108 MEQ/L (99-109); GFR ESTIMATE (CALCULATED) 26 mL/min/; POTASSIUM 4.1 MEQ/L (3.7-5.4); SAMPLE HEMOLYSIS CHECK 0; SAMPLE ICTERIC CHECK 0; SAMPLE LIPEMIA CHECK 0; SODIUM 139 MEQ/L (136-147); UREA NITROGEN (BUN) 40 mg/dL (9-23)
[2017-08-19 06:24] LABS: GLUCOSE 52 mg/dL (70-99)
[2017-08-19 06:33] LABS: POINT-OF-CARE METER ID UU14314088
[2017-08-19 06:58] LABS: POINT-OF-CARE METER ID UU14314088
[2017-08-19 10:55] LABS: POINT-OF-CARE METER ID UU14314088
[2017-08-19 14:27] LABS: POINT-OF-CARE METER ID UU14314088
[2017-08-19 16:52] LABS: POINT-OF-CARE METER ID UU13113819
[2017-08-19 17:59] LABS: POINT-OF-CARE METER ID UU13113781
[2017-08-19 19:52] LABS: EOSINOPHIL (%) 10.5 % (0-5); EOSINOPHIL COUNT 0.3 K/uL (0-0.3); HEMATOCRIT 30.1 % (36.0-46.0); INSTRUMENT ABS NEUTROPHIL CT 1.6 K/uL; LYMPHOCYTE COUNT 0.3 K/uL (1.0-2.8); MCH 26.7 PG (29.0-34.0); MCHC 31.9 G/DL (30.0-36.0); MCV 83.8 FL (83-99); MONOCYTE (%) 10.5 % (3-12); MONOCYTE COUNT 0.3 K/uL (0-0.8); NEUTROPHIL (%) 64.5 % (45-76); NEUTROPHIL COUNT 1.6 K/uL (1.8-6.4); RBC DIS.WIDTH-CV 14.7 % (11.8-14.6); WHITE BLOOD COUNT 2.5 K/uL (4.1-10.2)
[2017-08-19 19:59] LABS: RED BLOOD COUNT 3.59 M/uL (3.80-5.20)
[2017-08-19 20:15] LABS: IMM.PLATELET FRACTION 3.3 (1-7); PLAT.SUFFICIENCY DECREASED
[2017-08-19 20:17] LABS: MEAN PLAT.VOLUME 10.2 uM^3 (9.5-12.4); PLATELET COUNT 39 K/uL (156-360)
[2017-08-19 20:59] LABS: POINT-OF-CARE METER ID UU13113781
[2017-08-20 00:41] LABS: POINT-OF-CARE METER ID UU13113781
[2017-08-20 02:00] VITALS: BP 119/56
[2017-08-20 05:01] VITALS: BP 119/56
[2017-08-20 06:06] LABS: POINT-OF-CARE METER ID UU14314088
[2017-08-20 06:06] LABS: POINT-OF-CARE METER ID UU14314088
[2017-08-20 06:30] LABS: EOSINOPHIL (%) 9.9 % (0-5); EOSINOPHIL COUNT 0.3 K/uL (0-0.3); HEMATOCRIT 29.8 % (36.0-46.0); IMMATURE GRANULOCYTE (%) 0.4 % (0.0-0.7); INSTRUMENT ABS NEUTROPHIL CT 1.7 K/uL; LYMPHOCYTE COUNT 0.4 K/uL (1.0-2.8); MCH 27.2 PG (29.0-34.0); MCHC 32.2 G/DL (30.0-36.0); MCV 84.4 FL (83-99); MONOCYTE (%) 8.7 % (3-12); MONOCYTE COUNT 0.2 K/uL (0-0.8); NEUTROPHIL (%) 65.9 % (45-76); NEUTROPHIL COUNT 1.7 K/uL (1.8-6.4); RBC DIS.WIDTH-CV 14.9 % (11.8-14.6); RBC DIS.WIDTH-SD 45.3 % (39-53); RED BLOOD COUNT 3.53 M/uL (3.80-5.20); WHITE BLOOD COUNT 2.5 K/uL (4.1-10.2)
[2017-08-20 06:56] LABS: ANION GAP 6 MEQ/L (2-14); CHLORIDE 109 MEQ/L (99-109); GFR ESTIMATE (CALCULATED) 26 mL/min/; POTASSIUM 3.9 MEQ/L (3.7-5.4); SAMPLE HEMOLYSIS CHECK 0; SAMPLE ICTERIC CHECK 0; SAMPLE LIPEMIA CHECK 0; SODIUM 140 MEQ/L (136-147); UREA NITROGEN (BUN) 35 mg/dL (9-23)
[2017-08-20 06:59] LABS: GLUCOSE 49 mg/dL (70-99)
[2017-08-20 07:18] LABS: IMM.PLATELET FRACTION 2.9 (1-7); MEAN PLAT.VOLUME 11.2 uM^3 (9.5-12.4); PLAT.SUFFICIENCY VERY DECREASED; PLATELET COUNT 45 K/uL (156-360)
[2017-08-20 07:48] VITALS: BP 121/57
[2017-08-20 10:29] LABS: POINT-OF-CARE METER ID UU14174216
[2017-08-20 11:29] LABS: HEMATOCRIT 35.8 % (36.0-46.0); MCH 27.5 PG (29.0-34.0); MCHC 30.2 G/DL (30.0-36.0); RBC DIS.WIDTH-CV 15.3 % (11.8-14.6); RED BLOOD COUNT 3.93 M/uL (3.80-5.20); WHITE BLOOD COUNT 3.4 K/uL (4.1-10.2)
[2017-08-20 11:35] LABS: MCV 91.1 FL (83-99)
[2017-08-20 11:56] LABS: IMM.PLATELET FRACTION 2.6 (1-7); MEAN PLAT.VOLUME 12.2 uM^3 (9.5-12.4); PLATELET COUNT 47 K/uL (156-360)
[2017-08-20 12:04] LABS: HEMATOLOGY COMMENT 1 SMEAR COMPATIBLE; PLAT.SUFFICIENCY DECREASED
[2017-08-20 12:13] VITALS: BP 126/62
[2017-08-20] MEDS ORDERED: APRESOLINE10 MG PO (12:34)
[2017-08-20] MEDS ORDERED: NABI650T PO (12:37)
[2017-08-20] MEDS ORDERED: LEVEMIR FL100 UNIT/1 SC (12:38)
[2017-08-20] MEDS ORDERED: PROTONIX40 MG PO (12:38)
[2017-08-20] MEDS ORDERED: CIPRO500 MG PO (12:43)
[2017-08-20] MEDS ORDERED: CIPRO250 MG PO (12:44)
[2017-08-23 12:17] LABS: POINT-OF-CARE METER ID UU14314088
[2017-08-23 12:21] LABS: POINT-OF-CARE METER ID UU13113698
== END 2017-08-20 14:02 | disposition home or self-care (01) | DRG 378 ==
LOC: EME 17:00 → 4EAST 21:57 → EDOF 21:57 → ENRESERV 21:58 → 4EAST 08-17 02:45
PROVIDERS: Hospitalist; Internal Medicine; Physician Assistant; Specialist
DX: K92.2 Gastrointestinal hemorrhage, unspecified (principal); D62 Acute posthemorrhagic anemia; K64.8 Other hemorrhoids; K55.20 Angiodysplasia of colon without hemorrhage; I85.00 Esophageal varices without bleeding; K76.6 Portal hypertension; K74.69 Other cirrhosis of liver; K72.10 Chronic hepatic failure without coma; K31.89 Other diseases of stomach and duodenum; D61.818 Other pancytopenia; E11.65 Type 2 diabetes mellitus with hyperglycemia; E11.649 Type 2 diabetes mellitus with hypoglycemia without coma; D68.9 Coagulation defect, unspecified; E87.2 Acidosis; Z76.82 Awaiting organ transplant status; R18.8 Other ascites; I13.0 Hypertensive heart and chronic kidney disease with heart failure and stage 1 through stage 4 chronic kidney disease, or unspecified chronic kidney disease; N18.4 Chronic kidney disease, stage 4 (severe); I50.9 Heart failure, unspecified; E11.22 Type 2 diabetes mellitus with diabetic chronic kidney disease; D63.8 Anemia in other chronic diseases classified elsewhere; E03.9 Hypothyroidism, unspecified; D73.1 Hypersplenism; E86.1 Hypovolemia; I25.2 Old myocardial infarction; R01.1 Cardiac murmur, unspecified; M19.90 Unspecified osteoarthritis, unspecified site; K21.0 Gastro-esophageal reflux disease with esophagitis; E78.5 Hyperlipidemia, unspecified; I86.4 Gastric varices; J45.909 Unspecified asthma, uncomplicated; Z79.4 Long term (current) use of insulin; Z85.028 Personal history of other malignant neoplasm of stomach; Z85.3 Personal history of malignant neoplasm of breast; Z95.0 Presence of cardiac pacemaker; Z90.49 Acquired absence of other specified parts of digestive tract; Z87.891 Personal history of nicotine dependence; Z82.49 Family history of ischemic heart disease and other diseases of the circulatory system; Z80.42 Family history of malignant neoplasm of prostate
CPT/HCPCS: 71020; 80048; 80048 91; 80076; 81003; 82010; 82272; 82607; 82728; 82746; 82803; 82948; 83010 90; 83540; 83605; 83615; 83690; 84466; 84999; 85007; 85025; 85025 91; 85027; 85610; 85730; 86850; 86860; 86870; 86880; 86900; 86901; 86905; 86920; 93005; 99281; 99285; C9113; J0360; J0696; J1815; J2354; J7030; J7042; P9016; P9017

== ENCOUNTER 2017-09-24 12:18 | Inpatient (IN) | payer OTHER ==
[~2017-09-24] VITALS: Ht 165.1 cm; Wt 68.2 kg
[~2017-09-24 12:18] MED LIST changes: +APRESOLINE10 MG PO; +CENTRUM SILVER1 EAC4 PO; +CIPRO250 MG PO; +HYDROXYZINE HCL25 MG PO; +PROPRANOLOL HCL20 MG PO; +TUMS500 MG PO
[2017-09-24 18:01] LABS: HEMATOCRIT 22.7 % (36.0-46.0); MCH 27.8 PG (29.0-34.0); MCHC 32.6 G/DL (30.0-36.0); MCV 85.3 FL (83-99); PLATELET COUNT 59 K/uL (156-360); RBC DIS.WIDTH-CV 16.2 % (11.8-14.6); RBC DIS.WIDTH-SD 50.5 % (39-53); WHITE BLOOD COUNT 2.7 K/uL (4.1-10.2)
[2017-09-24 18:07] LABS: CARBON DIOXIDE (BICARBONATE) 26.3 MEQ/L (20-31); HEMOGLOBIN 7.4 G/DL (11.9-15.5); RED BLOOD COUNT 2.66 M/uL (3.80-5.20)
[2017-09-24 18:10] LABS: CHLORIDE 106 mEq/L (99-109); POTASSIUM 4.2 mEq/L (3.7-5.4); SODIUM 138 mEq/L (136-147)
[2017-09-24 18:12] LABS: GLUCOSE 335 mg/dL (70-99)
[2017-09-24 18:16] LABS: CREATININE 2.6 mg/dL (0.6-1.3); GFR ESTIMATE (CALCULATED) 20 mL/min/
[2017-09-24 18:17] LABS: UREA NITROGEN (BUN) 48 mg/dL (9-23)
[2017-09-24] MEDS ORDERED: PROTONIX40 MG PO (20:54)
[2017-09-24 21:04] LABS: HEMATOCRIT 20.4 % (36.0-46.0); MCH 26.9 PG (29.0-34.0); MCHC 31.9 G/DL (30.0-36.0); MCV 84.3 FL (83-99); RBC DIS.WIDTH-CV 16.1 % (11.8-14.6); RBC DIS.WIDTH-SD 49.5 % (39-53); RED BLOOD COUNT 2.42 M/uL (3.80-5.20)
[2017-09-24 21:20] LABS: HEMOGLOBIN 6.5 G/DL (11.9-15.5)
[2017-09-24 21:39] LABS: IMM.PLATELET FRACTION 3.5 (1-7); PLAT.SUFFICIENCY VERY DECREASED; PLATELET COUNT 46 K/uL (156-360)
[2017-09-24 23:15] VITALS: BP 134/57
[2017-09-25] VITALS (9 sets, daily range): BP systolic 151–172; BP diastolic 65–75
[2017-09-25 01:15] LABS: APPEARANCE CLEAR ((CLEAR)); BILIRUBIN NEGATIVE; BLOOD NEGATIVE; COLOR YELLOW ((YELLOW)); GLUCOSE (STRIP) NEGATIVE; KETONES NEGATIVE; LEUKOCYTES NEGATIVE; NITRITE NEGATIVE; PROTEIN (STRIP) NEGATIVE; SPECIFIC GRAVITY 1.011 (1.000-1.030); UCUL ADDED? NO; UROBILINOGEN 0.2 MG/DL (0.2-1.0)
[2017-09-25 07:26] LABS: HEMATOCRIT 25.1 % (36.0-46.0); HEMOGLOBIN 7.9 G/DL (11.9-15.5); MCH 27.3 PG (29.0-34.0); MCHC 31.5 G/DL (30.0-36.0); MCV 86.9 FL (83-99); RBC DIS.WIDTH-CV 15.7 % (11.8-14.6); RBC DIS.WIDTH-SD 49.7 % (39-53); RED BLOOD COUNT 2.89 M/uL (3.80-5.20)
[2017-09-25 07:29] LABS: WHITE BLOOD COUNT 1.9 K/uL (4.1-10.2)
[2017-09-25 07:41] LABS: CHLORIDE 111 MEQ/L (99-109); GFR ESTIMATE (CALCULATED) 26 mL/min/; GLUCOSE 219 mg/dL (70-99); POTASSIUM 4.2 MEQ/L (3.7-5.4); SODIUM 143 MEQ/L (136-147); UREA NITROGEN (BUN) 42 mg/dL (9-23)
[2017-09-25 08:03] LABS: IMM.PLATELET FRACTION 2.3 (1-7); PLAT.SUFFICIENCY DECREASED; PLATELET COUNT 41 K/uL (156-360)
[2017-09-25 14:35] LABS: HEMATOCRIT 24.7 % (36.0-46.0); HEMOGLOBIN 7.8 G/DL (11.9-15.5); MCH 27.8 PG (29.0-34.0); MCHC 31.6 G/DL (30.0-36.0); MCV 87.9 FL (83-99); RBC DIS.WIDTH-CV 15.7 % (11.8-14.6); RBC DIS.WIDTH-SD 49.9 % (39-53); RED BLOOD COUNT 2.81 M/uL (3.80-5.20)
[2017-09-25 14:58] LABS: WHITE BLOOD COUNT 1.9 K/uL (4.1-10.2)
[2017-09-25 15:18] LABS: IMM.PLATELET FRACTION 2.3 (1-7); PLAT.SUFFICIENCY VERY DECREASED; PLATELET COUNT 40 K/uL (156-360)
[2017-09-26] VITALS: BP 154/65
[2017-09-26 06:35] LABS: HEMATOCRIT 25.3 % (36.0-46.0); MCH 27.7 PG (29.0-34.0); MCHC 31.6 G/DL (30.0-36.0); MCV 87.5 FL (83-99); RBC DIS.WIDTH-CV 15.6 % (11.8-14.6); RBC DIS.WIDTH-SD 49.8 % (39-53); RED BLOOD COUNT 2.89 M/uL (3.80-5.20)
[2017-09-26 06:47] LABS: WHITE BLOOD COUNT 1.8 K/uL (4.1-10.2)
[2017-09-26 06:51] LABS: CHLORIDE 112 MEQ/L (99-109); CREATININE 2.1 MG/DL (0.6-1.3); GFR ESTIMATE (CALCULATED) 25 mL/min/; GLUCOSE 211 mg/dL (70-99); MAGNESIUM 1.8 mg/dl (1.3-2.7); POTASSIUM 4.1 MEQ/L (3.7-5.4); SODIUM 143 MEQ/L (136-147); UREA NITROGEN (BUN) 40 mg/dL (9-23)
[2017-09-26 07:01] LABS: IMM.PLATELET FRACTION 2.2 (1-7); PLAT.SUFFICIENCY VERY DECREASED; PLATELET COUNT 38 K/uL (156-360)
[2017-09-26 08:00] VITALS: BP 161/78
[2017-09-26 15:32] LABS: HEMOGLOBIN A1c (GLYCOHEMOGLOB) 8.1 % (Below 5.7)
[2017-09-26 16:00] VITALS: BP 192/77
[2017-09-26 19:40] VITALS: BP 116/60
[2017-09-26 23:36] VITALS: BP 124/62
[2017-09-27 06:53] LABS: ALBUMIN 3.2 G/DL (3.2-4.8); CHLORIDE 104 MEQ/L (99-109); GFR ESTIMATE (CALCULATED) 26 mL/min/; GLUCOSE 214 mg/dL (70-99); PHOSPHORUS 4.2 mg/dL (2.5-4.9); POTASSIUM 4.2 MEQ/L (3.7-5.4); SODIUM 136 MEQ/L (136-147); UREA NITROGEN (BUN) 40 mg/dL (9-23)
[2017-09-27 06:54] LABS: HEMOGLOBIN 8.3 G/DL (11.9-15.5); MCH 27.6 PG (29.0-34.0); MCHC 31.9 G/DL (30.0-36.0); MCV 86.4 FL (83-99); RBC DIS.WIDTH-CV 15.4 % (11.8-14.6); RBC DIS.WIDTH-SD 48.7 % (39-53); RED BLOOD COUNT 3.01 M/uL (3.80-5.20)
[2017-09-27 06:59] LABS: WHITE BLOOD COUNT 1.8 K/uL (4.1-10.2)
[2017-09-27 07:08] LABS: IMM.PLATELET FRACTION 2.9 (1-7); PLAT.SUFFICIENCY DECREASED; PLATELET COUNT 39 K/uL (156-360)
[2017-09-27 07:30] VITALS: BP 151/68
[2017-09-27 15:32] VITALS: BP 162/71
[2017-09-27 19:58] VITALS: BP 163/70
[2017-09-27 23:28] VITALS: BP 134/53
[2017-09-28 03:37] VITALS: BP 128/53
[2017-09-28 08:00] VITALS: BP 139/66
[2017-09-28 11:38] LABS: HEMATOCRIT 27.8 % (36.0-46.0); HEMOGLOBIN 8.9 G/DL (11.9-15.5); MCH 28.3 PG (29.0-34.0); MCV 88.5 FL (83-99); RBC DIS.WIDTH-CV 15.7 % (11.8-14.6); RBC DIS.WIDTH-SD 50.2 % (39-53); RED BLOOD COUNT 3.14 M/uL (3.80-5.20); WHITE BLOOD COUNT 1.8 K/uL (4.1-10.2)
[2017-09-28 11:53] LABS: IMM.PLATELET FRACTION 3.5 (1-7); PLATELET COUNT 38 K/uL (156-360)
[2017-09-28 11:54] LABS: CHLORIDE 103 MEQ/L (99-109); POTASSIUM 4.8 MEQ/L (3.7-5.4); SODIUM 133 MEQ/L (136-147)
[2017-09-28 12:10] LABS: CREATININE 2.1 MG/DL (0.6-1.3); GFR ESTIMATE (CALCULATED) 25 mL/min/; UREA NITROGEN (BUN) 43 mg/dL (9-23)
[2017-09-28 12:11] LABS: GLUCOSE 448 mg/dL (70-99)
[2017-09-28] MEDS ORDERED: LEVEMIR FL100 UNIT/1 SC (12:16)
[2017-09-28] MEDS ORDERED: PROTONIX40 MG PO (12:17)
== END 2017-09-28 15:24 | disposition home or self-care (01) | DRG 442 ==
LOC: EME 12:18 → 5SOUTH 23:55 → EDOF 23:55 → ENRESERV 23:57 → 5SOUTH 09-25 01:15
PROVIDERS: Hospitalist; Internal Medicine; Internal Medicine Gastroenterology; Internal Medicine Nephrology; Physician Assistant; Physician Assistant Medical
PROC: 30233N1 Transfusion of Nonautologous Red Blood Cells into Peripheral Vein, Percutaneous Approach (ICD-10-PCS; principal; 2017-09-24)
PROC: 0DJ08ZZ Inspection of Upper Intestinal Tract, Via Natural or Artificial Opening Endoscopic (ICD-10-PCS; 2017-09-26)
DX: K76.6 Portal hypertension (principal); K31.89 Other diseases of stomach and duodenum; D62 Acute posthemorrhagic anemia; E11.65 Type 2 diabetes mellitus with hyperglycemia; D61.818 Other pancytopenia; I13.0 Hypertensive heart and chronic kidney disease with heart failure and stage 1 through stage 4 chronic kidney disease, or unspecified chronic kidney disease; I50.32 Chronic diastolic (congestive) heart failure; N18.3 Chronic kidney disease, stage 3 (moderate); E11.22 Type 2 diabetes mellitus with diabetic chronic kidney disease; E87.5 Hyperkalemia; E87.2 Acidosis; E87.1 Hypo-osmolality and hyponatremia; K75.81 Nonalcoholic steatohepatitis (NASH); K72.10 Chronic hepatic failure without coma; I85.10 Secondary esophageal varices without bleeding; D73.1 Hypersplenism; E03.9 Hypothyroidism, unspecified; E78.5 Hyperlipidemia, unspecified; J45.909 Unspecified asthma, uncomplicated; I25.2 Old myocardial infarction; K21.9 Gastro-esophageal reflux disease without esophagitis; I25.10 Atherosclerotic heart disease of native coronary artery without angina pectoris; Z76.82 Awaiting organ transplant status; Z79.4 Long term (current) use of insulin; Z95.0 Presence of cardiac pacemaker; Z87.891 Personal history of nicotine dependence; Z85.028 Personal history of other malignant neoplasm of stomach; Z85.3 Personal history of malignant neoplasm of breast; Z86.010 Personal history of colon polyps; Z87.442 Personal history of urinary calculi; Z90.49 Acquired absence of other specified parts of digestive tract; Z91.041 Radiographic dye allergy status
CPT/HCPCS: 74176; 80048; 80069; 81003; 82010; 82803; 82948; 83036; 83735; 85027; 86850; 86870; 86900; 86901; 86905; 86920; 93005; 99281; 99285; C9113; J0696; J1815; J2354; J7030; P9016; Q0177

== ENCOUNTER 2017-12-03 16:27 | Emergency (ER) | payer OTHER ==
[~2017-12-03] VITALS: Ht 165.1 cm; Wt 74.2 kg
[2017-12-03] VITALS (7 sets, daily range): BP systolic 121–150; BP diastolic 43–60
[2017-12-03 17:17] LABS: ALBUMIN 3.3 g/dL (3.2-4.8); CHLORIDE 105 mEq/L (99-109); SODIUM 135 mEq/L (136-147)
[2017-12-03 17:18] LABS: INTER. NORMALIZED RATIO 1.2
[2017-12-03 17:20] LABS: TOTAL PROTEIN 6.5 g/dL (6.4-8.3)
[2017-12-03 17:22] LABS: TOTAL BILIRUBIN 0.4 mg/dL (0.0-1.0)
[2017-12-03 17:23] LABS: ALKALINE PHOSPHATASE 222 IU/L (3-129)
[2017-12-03 17:24] LABS: BASOPHIL (%) 0 % (0-1); CREATININE 2.3 mg/dL (0.6-1.3); EOSINOPHIL (%) 11.1 % (0-5); EOSINOPHIL COUNT 0.2 K/uL (0-0.3); GFR ESTIMATE (CALCULATED) 22 mL/min/; HEMATOCRIT 18.6 % (36.0-46.0); IMMATURE GRANULOCYTE (%) 0.5 % (0.0-0.7); LYMPHOCYTE (%) 14.1 % (15-42); LYMPHOCYTE COUNT 0.3 K/uL (1.0-2.8); MCHC 31.7 G/DL (30.0-36.0); MCV 81.9 FL (83-99); MONOCYTE (%) 7.6 % (3-12); MONOCYTE COUNT 0.2 K/uL (0-0.8); NEUTROPHIL (%) 66.7 % (45-76); NEUTROPHIL COUNT 1.3 K/uL (1.8-6.4); PLATELET COUNT 58 K/uL (156-360); RBC DIS.WIDTH-CV 14.2 % (11.8-14.6); RBC DIS.WIDTH-SD 42.2 % (39-53); RED BLOOD COUNT 2.27 M/uL (3.80-5.20)
[2017-12-03 17:25] LABS: AST (GOT) 21 IU/L (2-34); DIRECT BILIRUBIN 0.2 mg/dL (0.0-0.3); HEMOGLOBIN 5.9 G/DL (11.9-15.5); UREA NITROGEN (BUN) 42 mg/dL (9-23)
[2017-12-03 17:26] LABS: ALT (GPT) 15 IU/L (3-49)
[2017-12-03 17:29] LABS: GLUCOSE 413 mg/dL (70-99)
[2017-12-04 00:20] VITALS: BP 137/57
[2017-12-04 01:26] VITALS: BP 136/46
[2017-12-04 02:18] VITALS: BP 147/78
== END 2017-12-04 02:26 | disposition home or self-care (01) ==
LOC: EME 16:27
PROVIDERS: Emergency Medicine
PROC: 30233N1 Transfusion of Nonautologous Red Blood Cells into Peripheral Vein, Percutaneous Approach (ICD-10-PCS; principal; 2017-12-03)
DX: D64.9 Anemia, unspecified (principal); R73.9 Hyperglycemia, unspecified; Z76.82 Awaiting organ transplant status; K72.90 Hepatic failure, unspecified without coma; I10 Essential (primary) hypertension; E78.5 Hyperlipidemia, unspecified; I25.2 Old myocardial infarction; Z95.0 Presence of cardiac pacemaker; Z87.442 Personal history of urinary calculi; K21.9 Gastro-esophageal reflux disease without esophagitis; J45.909 Unspecified asthma, uncomplicated; Z85.3 Personal history of malignant neoplasm of breast; Z85.89 Personal history of malignant neoplasm of other organs and systems; Z88.5 Allergy status to narcotic agent; Z88.2 Allergy status to sulfonamides; Z91.041 Radiographic dye allergy status; Z87.891 Personal history of nicotine dependence
CPT/HCPCS: 80048 91; 80076; 82948; 85025 91; 85610; 86850; 86860; 86870; 86880; 86900; 86901; 86920; 99281; 99285; J7120; P9016

== ENCOUNTER 2017-12-16 15:56 | Inpatient (IN) | payer OTHER ==
[~2017-12-16] VITALS: Ht 165.1 cm; Wt 73.7 kg
[2017-12-16 16:41] LABS: HEMATOCRIT 21.5 % (36.0-46.0); MCH 25.7 PG (29.0-34.0); MCHC 31.2 G/DL (30.0-36.0); MCV 82.4 FL (83-99); PLATELET COUNT 62 K/uL (156-360); RBC DIS.WIDTH-CV 15.2 % (11.8-14.6); RBC DIS.WIDTH-SD 45.5 % (39-53); RED BLOOD COUNT 2.61 M/uL (3.80-5.20); WHITE BLOOD COUNT 2.7 K/uL (4.1-10.2)
[2017-12-16 16:42] LABS: HEMOGLOBIN 6.7 G/DL (11.9-15.5)
[2017-12-16 16:49] LABS: CHLORIDE 109 mEq/L (99-109); POTASSIUM 4.2 mEq/L (3.7-5.4); SODIUM 138 mEq/L (136-147)
[2017-12-16 16:53] LABS: GLUCOSE 333 mg/dL (70-99)
[2017-12-16 16:54] LABS: CREATININE 2.1 mg/dL (0.6-1.3); GFR ESTIMATE (CALCULATED) 25 mL/min/
[2017-12-16 16:55] LABS: UREA NITROGEN (BUN) 34 mg/dL (9-23)
[2017-12-16] MEDS ORDERED: PROTONIX40 MG PO (17:55)
[2017-12-16] MEDS ORDERED: LEVEMIR100 UNIT/2 SC (17:57)
[2017-12-16] MEDS ORDERED: TYLENOL EXTRA500 MG PO (17:59)
[2017-12-16] MEDS ORDERED: SUCRETS PO (18:04)
[2017-12-16] MEDS ORDERED: VICKS VAPOINHA1 EACH NS (18:04)
[2017-12-16 19:27] LABS: INTER. NORMALIZED RATIO 1.1
[2017-12-16 19:29] LABS: ALBUMIN 3.3 g/dL (3.2-4.8)
[2017-12-16 19:31] LABS: TOTAL PROTEIN 6.6 g/dL (6.4-8.3)
[2017-12-16 19:33] LABS: TOTAL BILIRUBIN 0.5 mg/dL (0.0-1.0)
[2017-12-16 19:34] LABS: ALKALINE PHOSPHATASE 193 IU/L (3-129)
[2017-12-16 19:37] LABS: ALT (GPT) 14 IU/L (3-49); AST (GOT) 23 IU/L (2-34); DIRECT BILIRUBIN 0.3 mg/dL (0.0-0.3)
[2017-12-16 20:02] LABS: HEMATOCRIT 20.6 % (36.0-46.0); HEMOGLOBIN 6.4 G/DL (11.9-15.5); MCV 82.4 FL (83-99)
[2017-12-16 22:02] VITALS: BP 128/62
[2017-12-16 22:05] VITALS: BP 135/63
[2017-12-16 22:25] VITALS: BP 135/65
[2017-12-16 23:25] VITALS: BP 155/68
[2017-12-17] VITALS (17 sets, daily range): BP systolic 135–176; BP diastolic 60–88
[2017-12-17 00:52] LABS: HEMATOCRIT 22.1 % (36.0-46.0); HEMOGLOBIN 6.9 G/DL (11.9-15.5); MCV 82.2 FL (83-99)
[2017-12-17 06:16] LABS: HEMATOCRIT 22.7 % (36.0-46.0); MCH 25.5 PG (29.0-34.0); MCHC 30.8 G/DL (30.0-36.0); MCV 82.8 FL (83-99); PLATELET COUNT 51 K/uL (156-360); RBC DIS.WIDTH-SD 44.9 % (39-53); RED BLOOD COUNT 2.74 M/uL (3.80-5.20); WHITE BLOOD COUNT 2.1 K/uL (4.1-10.2)
[2017-12-17 06:54] LABS: ALBUMIN 3.1 G/DL (3.2-4.8); ALKALINE PHOSPHATASE 143 IU/L (3-129); ALT (GPT) 11 IU/L (3-49); AST (GOT) 19 IU/L (2-34); CHLORIDE 112 MEQ/L (99-109); CREATININE 1.9 MG/DL (0.6-1.3); GFR ESTIMATE (CALCULATED) 28 mL/min/; POTASSIUM 4.4 MEQ/L (3.7-5.4); SODIUM 142 MEQ/L (136-147); TOTAL BILIRUBIN 0.8 MG/DL (0.0-1.0); TOTAL PROTEIN 5.8 G/DL (6.4-8.3); UREA NITROGEN (BUN) 33 mg/dL (9-23)
[2017-12-17 06:55] LABS: GLUCOSE 138 mg/dL (70-99)
[2017-12-17 09:51] LABS: HEMATOCRIT 22.5 % (36.0-46.0)
[2017-12-17 09:52] LABS: HEMOGLOBIN 6.9 G/DL (11.9-15.5)
[2017-12-17 12:51] LABS: HEMATOCRIT 22.7 % (36.0-46.0); HEMOGLOBIN 7.1 G/DL (11.9-15.5); MCV 82.5 FL (83-99)
[2017-12-17 18:00] LABS: HEMATOCRIT 27.4 % (36.0-46.0); HEMOGLOBIN 8.3 G/DL (11.9-15.5); MCV 84.6 FL (83-99)
[2017-12-18] VITALS (12 sets, daily range): BP systolic 140–197; BP diastolic 63–83
[2017-12-18 07:10] LABS: BASOPHIL (%) 0.9 % (0-1); EOSINOPHIL (%) 13.3 % (0-5); EOSINOPHIL COUNT 0.3 K/uL (0-0.3); HEMATOCRIT 25.1 % (36.0-46.0); HEMOGLOBIN 7.5 G/DL (11.9-15.5); IMMATURE GRANULOCYTE (%) 0.4 % (0.0-0.7); LYMPHOCYTE COUNT 0.3 K/uL (1.0-2.8); MCH 25.3 PG (29.0-34.0); MCHC 29.9 G/DL (30.0-36.0); MCV 84.8 FL (83-99); MONOCYTE COUNT 0.2 K/uL (0-0.8); NEUTROPHIL (%) 65.4 % (45-76); NEUTROPHIL COUNT 1.5 K/uL (1.8-6.4); PLATELET COUNT 60 K/uL (156-360); RBC DIS.WIDTH-CV 15.1 % (11.8-14.6); RBC DIS.WIDTH-SD 46.5 % (39-53); RED BLOOD COUNT 2.96 M/uL (3.80-5.20); WHITE BLOOD COUNT 2.3 K/uL (4.1-10.2)
[2017-12-18 07:31] LABS: CHLORIDE 110 MEQ/L (99-109); GFR ESTIMATE (CALCULATED) 26 mL/min/; POTASSIUM 4.7 MEQ/L (3.7-5.4); SODIUM 141 MEQ/L (136-147); UREA NITROGEN (BUN) 37 mg/dL (9-23)
[2017-12-18 07:35] LABS: GLUCOSE 231 mg/dL (70-99)
[2017-12-19 06:44] LABS: BASOPHIL (%) 0.9 % (0-1); EOSINOPHIL (%) 12.7 % (0-5); EOSINOPHIL COUNT 0.3 K/uL (0-0.3); HEMATOCRIT 26.1 % (36.0-46.0); HEMOGLOBIN 8.1 G/DL (11.9-15.5); IMMATURE GRANULOCYTE (%) 0.4 % (0.0-0.7); LYMPHOCYTE (%) 11.8 % (15-42); LYMPHOCYTE COUNT 0.3 K/uL (1.0-2.8); MCV 83.9 FL (83-99); MONOCYTE (%) 7.9 % (3-12); MONOCYTE COUNT 0.2 K/uL (0-0.8); NEUTROPHIL (%) 66.3 % (45-76); NEUTROPHIL COUNT 1.5 K/uL (1.8-6.4); PLATELET COUNT 60 K/uL (156-360); RBC DIS.WIDTH-CV 15.3 % (11.8-14.6); RBC DIS.WIDTH-SD 46.4 % (39-53); RED BLOOD COUNT 3.11 M/uL (3.80-5.20); WHITE BLOOD COUNT 2.3 K/uL (4.1-10.2)
[2017-12-19 07:05] LABS: CHLORIDE 107 MEQ/L (99-109); CREATININE 2.1 MG/DL (0.6-1.3); GFR ESTIMATE (CALCULATED) 25 mL/min/; GLUCOSE 234 mg/dL (70-99); POTASSIUM 4.5 MEQ/L (3.7-5.4); SODIUM 137 MEQ/L (136-147); UREA NITROGEN (BUN) 40 mg/dL (9-23)
[2017-12-19 07:24] VITALS: BP 153/68
[2017-12-19 11:54] VITALS: BP 177/74
[2017-12-19 13:54] VITALS: BP 170/75
== END 2017-12-19 14:15 | disposition home or self-care (01) | DRG 812 ==
LOC: EME 15:56 → EDOF 18:51 → 5EAST 18:51 → ENRESERV 18:53 → 5EAST 21:52 → ENPENDDIS 12-19 → 5EAST 12-19 14:15
PROVIDERS: Hospitalist; Internal Medicine Gastroenterology
PROC: 30233N1 Transfusion of Nonautologous Red Blood Cells into Peripheral Vein, Percutaneous Approach (ICD-10-PCS; principal; 2017-12-16)
DX: D50.0 Iron deficiency anemia secondary to blood loss (chronic) (principal); I12.9 Hypertensive chronic kidney disease with stage 1 through stage 4 chronic kidney disease, or unspecified chronic kidney disease; N18.4 Chronic kidney disease, stage 4 (severe); E11.22 Type 2 diabetes mellitus with diabetic chronic kidney disease; D61.818 Other pancytopenia; K74.69 Other cirrhosis of liver; I85.00 Esophageal varices without bleeding; K76.6 Portal hypertension; Z76.82 Awaiting organ transplant status; K72.10 Chronic hepatic failure without coma; K31.89 Other diseases of stomach and duodenum; I25.10 Atherosclerotic heart disease of native coronary artery without angina pectoris; E78.5 Hyperlipidemia, unspecified; K21.9 Gastro-esophageal reflux disease without esophagitis; E03.9 Hypothyroidism, unspecified; D73.1 Hypersplenism; K55.20 Angiodysplasia of colon without hemorrhage; R18.8 Other ascites; F17.200 Nicotine dependence, unspecified, uncomplicated; I25.2 Old myocardial infarction; Z95.0 Presence of cardiac pacemaker; Z79.4 Long term (current) use of insulin; Z85.028 Personal history of other malignant neoplasm of stomach; Z85.3 Personal history of malignant neoplasm of breast; Z87.442 Personal history of urinary calculi
CPT/HCPCS: 36415; 80048; 80048 91; 80053; 80069; 80076; 82948; 83735; 83970; 85014; 85018; 85025; 85027; 85610; 86850; 86870; 86900; 86901; 86905; 86920; 99281; 99285; C9113; J0360; J1815; J1940; J2354; J7040; P9016

== ENCOUNTER 2018-01-30 21:02 | Inpatient (IN) | payer OTHER ==
[~2018-01-30] VITALS: Ht 165.1 cm; Wt 75.1 kg
[~2018-01-30 21:02] MED LIST changes: +SUCRETS PO; +TYLENOL EXTRA500 MG PO; +VICKS VAPOINHA1 EACH NS
[2018-01-30 22:04] LABS: HEMATOCRIT 20.2 % (36.0-46.0); MCH 27.1 PG (29.0-34.0); MCHC 30.7 G/DL (30.0-36.0); MCV 88.2 FL (83-99); RBC DIS.WIDTH-CV 17.1 % (11.8-14.6); RBC DIS.WIDTH-SD 54.4 % (39-53); RED BLOOD COUNT 2.29 M/uL (3.80-5.20); WHITE BLOOD COUNT 2.5 K/uL (4.1-10.2)
[2018-01-30 22:07] LABS: CHLORIDE 101 mEq/L (99-109); POTASSIUM 4.8 mEq/L (3.7-5.4); SODIUM 132 mEq/L (136-147)
[2018-01-30 22:12] LABS: CREATININE 2.5 mg/dL (0.6-1.3); GFR ESTIMATE (CALCULATED) 20 mL/min/; GLUCOSE 646 mg/dL (70-99)
[2018-01-30 22:13] LABS: UREA NITROGEN (BUN) 43 mg/dL (9-23)
[2018-01-30 22:15] LABS: HEMOGLOBIN 6.2 G/DL (11.9-15.5)
[2018-01-30 22:48] LABS: HEMATOLOGY COMMENT 1 SN; IMM.PLATELET FRACTION 4.5 (1-7); PLAT.SUFFICIENCY VERY DECREASED; PLATELET COUNT 47 K/uL (156-360)
[2018-01-30] MEDS ORDERED: NABI650T PO (23:00)
[2018-01-30] MEDS ORDERED: IRON325 M1 PO ×2 (23:01→23:04)
[2018-01-30] MEDS ORDERED: IRON (23:03)
[2018-01-31] VITALS (14 sets, daily range): BP systolic 126–178; BP diastolic 56–736
[2018-01-31 12:03] LABS: HEMATOCRIT 22.2 % (36.0-46.0); MCV 87.4 FL (83-99)
[2018-01-31 12:04] LABS: IMM.PLATELET FRACTION 3.5 (1-7); MCH 27.5 PG (29.0-34.0); MCHC 31.4 G/DL (30.0-36.0); MCV 87.6 FL (83-99); PLATELET COUNT 46 K/uL (156-360); RBC DIS.WIDTH-CV 16.1 % (11.8-14.6); RBC DIS.WIDTH-SD 51.3 % (39-53); RED BLOOD COUNT 2.51 M/uL (3.80-5.20)
[2018-01-31 12:10] LABS: HEMOGLOBIN 6.9 G/DL (11.9-15.5)
[2018-01-31 12:12] LABS: HEMOGLOBIN 6.9 G/DL (11.9-15.5); WHITE BLOOD COUNT 1.8 K/uL (4.1-10.2)
[2018-01-31 12:50] LABS: ALBUMIN 2.9 G/DL (3.2-4.8); ALKALINE PHOSPHATASE 164 IU/L (3-129); ALT (GPT) 12 IU/L (3-49); AST (GOT) 18 IU/L (2-34); CHLORIDE 107 MEQ/L (99-109); POTASSIUM 4.4 MEQ/L (3.7-5.4); TOTAL BILIRUBIN 0.8 MG/DL (0.0-1.0); TOTAL PROTEIN 5.9 G/DL (6.4-8.3); UREA NITROGEN (BUN) 38 mg/dL (9-23)
[2018-01-31 12:54] LABS: CREATININE 1.9 MG/DL (0.6-1.3); GFR ESTIMATE (CALCULATED) 28 mL/min/; GLUCOSE 167 mg/dL (70-99); SODIUM 140 MEQ/L (136-147)
[2018-01-31 21:34] LABS: HEMATOCRIT 25.3 % (36.0-46.0); HEMOGLOBIN 8.1 G/DL (11.9-15.5); MCV 87.2 FL (83-99)
[2018-01-31 22:34] LABS: HEMATOLOGY COMMENT 1 SN; PLAT.SUFFICIENCY VERY DECREASED
[2018-02-01 01:16] LABS: HEMATOCRIT 24.5 % (36.0-46.0); MCV 86.6 FL (83-99)
[2018-02-01 06:31] LABS: INTER. NORMALIZED RATIO 1.2
[2018-02-01 06:33] LABS: HEMATOCRIT 24.2 % (36.0-46.0); HEMOGLOBIN 7.5 G/DL (11.9-15.5); MCH 27.1 PG (29.0-34.0); MCV 87.4 FL (83-99); RBC DIS.WIDTH-CV 15.8 % (11.8-14.6); RBC DIS.WIDTH-SD 50.8 % (39-53); RED BLOOD COUNT 2.77 M/uL (3.80-5.20)
[2018-02-01 06:51] LABS: ALBUMIN 2.9 G/DL (3.2-4.8); CHLORIDE 107 MEQ/L (99-109); CREATININE 1.9 MG/DL (0.6-1.3); GFR ESTIMATE (CALCULATED) 28 mL/min/; GLUCOSE 210 mg/dL (70-99); PHOSPHORUS 4.1 mg/dL (2.5-4.9); POTASSIUM 4.8 MEQ/L (3.7-5.4); SODIUM 138 MEQ/L (136-147); UREA NITROGEN (BUN) 34 mg/dL (9-23)
[2018-02-01 07:13] LABS: IMM.PLATELET FRACTION 3.2 (1-7); PLAT.SUFFICIENCY DECREASED; PLATELET COUNT 42 K/uL (156-360)
[2018-02-01 07:38] VITALS: BP 129/62
[2018-02-01 10:43] VITALS: BP 133/63
[2018-02-01 16:45] VITALS: BP 145/65
[2018-02-01 20:18] VITALS: BP 161/72
[2018-02-02] VITALS: BP 155/68
[2018-02-02 04:00] VITALS: BP 150/66
[2018-02-02 06:53] LABS: HEMATOCRIT 24.9 % (36.0-46.0); HEMOGLOBIN 7.6 G/DL (11.9-15.5); MCH 26.7 PG (29.0-34.0); MCHC 30.5 G/DL (30.0-36.0); MCV 87.4 FL (83-99); RBC DIS.WIDTH-CV 15.5 % (11.8-14.6); RBC DIS.WIDTH-SD 50.2 % (39-53); RED BLOOD COUNT 2.85 M/uL (3.80-5.20); WHITE BLOOD COUNT 2.4 K/uL (4.1-10.2)
[2018-02-02 07:19] LABS: CHLORIDE 106 MEQ/L (99-109); GFR ESTIMATE (CALCULATED) 26 mL/min/; GLUCOSE 229 mg/dL (70-99); PHOSPHORUS 3.4 mg/dL (2.5-4.9); POTASSIUM 4.9 MEQ/L (3.7-5.4); SODIUM 137 MEQ/L (136-147); UREA NITROGEN (BUN) 35 mg/dL (9-23)
[2018-02-02 07:26] LABS: IMM.PLATELET FRACTION 3.6 (1-7); PLAT.SUFFICIENCY VERY DECREASED; PLATELET COUNT 43 K/uL (156-360)
[2018-02-02 08:19] VITALS: BP 157/67
== END 2018-02-02 11:35 | disposition home or self-care (01) | DRG 378 ==
LOC: EME 21:02 → 5EAST 01-31 01:05 → EDOF 01-31 01:05 → ENRESERV 01-31 01:25 → 5EAST 01-31 02:53
PROVIDERS: Emergency Medicine; Hospitalist; Internal Medicine Gastroenterology
PROC: 30233N1 Transfusion of Nonautologous Red Blood Cells into Peripheral Vein, Percutaneous Approach (ICD-10-PCS; principal; 2018-01-31)
PROC: 0DJ68ZZ Inspection of Stomach, Via Natural or Artificial Opening Endoscopic (ICD-10-PCS; 2018-02-01)
DX: K92.1 Melena (principal); D62 Acute posthemorrhagic anemia; N17.9 Acute kidney failure, unspecified; D61.818 Other pancytopenia; I12.9 Hypertensive chronic kidney disease with stage 1 through stage 4 chronic kidney disease, or unspecified chronic kidney disease; N18.4 Chronic kidney disease, stage 4 (severe); E11.65 Type 2 diabetes mellitus with hyperglycemia; E11.22 Type 2 diabetes mellitus with diabetic chronic kidney disease; K76.6 Portal hypertension; K74.69 Other cirrhosis of liver; I85.10 Secondary esophageal varices without bleeding; K31.7 Polyp of stomach and duodenum; K72.10 Chronic hepatic failure without coma; K75.81 Nonalcoholic steatohepatitis (NASH); K31.89 Other diseases of stomach and duodenum; I25.10 Atherosclerotic heart disease of native coronary artery without angina pectoris; K21.9 Gastro-esophageal reflux disease without esophagitis; E03.9 Hypothyroidism, unspecified; F17.200 Nicotine dependence, unspecified, uncomplicated; I25.2 Old myocardial infarction; Z95.0 Presence of cardiac pacemaker; Z85.028 Personal history of other malignant neoplasm of stomach; Z85.3 Personal history of malignant neoplasm of breast; Z87.442 Personal history of urinary calculi
CPT/HCPCS: 36415; 76705; 80048; 80053; 80069; 82140; 82948; 85014; 85018; 85025; 85027; 85610; 86850; 86870; 86900; 86901; 86920; 87070; 87205; 89051; 99281; 99285; C9113; J0696; J1815; J7030; P9016

== ENCOUNTER → 2018-02-21 | Outpatient (CLI) | payer OTHER ==
[~2018-02-21] VITALS: Ht 165.1 cm; Wt 73.0 kg
[~2018-02-21] MED LIST changes: +IRON; +IRON325 M1 PO; +NOVOLOG PE100 UNITS/ SC
[2018-02-21 11:32] VITALS: BP 137/67
[2018-02-21 12:18] VITALS: BP 147/67
[2018-02-21 13:18] VITALS: BP 196/78
[2018-02-21 14:02] VITALS: BP 181/75
== END | disposition home or self-care (01) ==
LOC: IVINF 11:22
DX: D64.9 Anemia, unspecified (principal)
CPT/HCPCS: 36430; 86920; 86999

== ENCOUNTER 2018-03-06 17:42 | Inpatient (IN) | payer OTHER ==
[~2018-03-06] VITALS: Ht 165.1 cm; Wt 75.1 kg
[2018-03-06 19:07] LABS: HEMATOCRIT 20.8 % (36.0-46.0); HEMOGLOBIN 6.3 G/DL (11.9-15.5); MCH 27.3 PG (29.0-34.0); MCHC 30.3 G/DL (30.0-36.0); PLATELET COUNT 59 K/uL (156-360); RBC DIS.WIDTH-CV 14.9 % (11.8-14.6); RBC DIS.WIDTH-SD 49.1 % (39-53); RED BLOOD COUNT 2.31 M/uL (3.80-5.20); WHITE BLOOD COUNT 2.3 K/uL (4.1-10.2)
[2018-03-06 19:11] LABS: CHLORIDE 106 MEQ/L (99-109); POTASSIUM 4.7 MEQ/L (3.7-5.4); SODIUM 137 MEQ/L (136-147)
[2018-03-06 19:17] LABS: CREATININE 2.3 MG/DL (0.6-1.3); GFR ESTIMATE (CALCULATED) 22 mL/min/; UREA NITROGEN (BUN) 31 mg/dL (9-23)
[2018-03-06 19:19] LABS: GLUCOSE 359 mg/dL (70-99)
[2018-03-06 21:35] VITALS: BP 166/92
[2018-03-06 21:55] VITALS: BP 162/70
[2018-03-06 22:40] VITALS: BP 154/53
[2018-03-06 22:56] LABS: INTER. NORMALIZED RATIO 1.1
[2018-03-07] VITALS (13 sets, daily range): BP systolic 137–175; BP diastolic 66–88
[2018-03-07 00:24] LABS: HEMATOCRIT 21.8 % (36.0-46.0); HEMOGLOBIN 6.7 G/DL (11.9-15.5); MCV 88.6 FL (83-99)
[2018-03-07 03:58] LABS: ALBUMIN 3.4 G/DL (3.2-4.8); ALKALINE PHOSPHATASE 160 IU/L (3-129); ALT (GPT) 15 IU/L (3-49); AST (GOT) 28 IU/L (2-34); DIRECT BILIRUBIN 0.2 mg/dL (0.0-0.3); TOTAL BILIRUBIN 0.4 MG/DL (0.0-1.0); TOTAL PROTEIN 6.3 G/DL (6.4-8.3)
[2018-03-07 10:27] LABS: HEMATOCRIT 24.9 % (36.0-46.0); HEMOGLOBIN 7.5 G/DL (11.9-15.5); MCV 89.2 FL (83-99)
[2018-03-07 10:51] LABS: ALBUMIN 3.3 G/DL (3.2-4.8); ALKALINE PHOSPHATASE 147 IU/L (3-129); ALT (GPT) 13 IU/L (3-49); AST (GOT) 22 IU/L (2-34); CHLORIDE 110 MEQ/L (99-109); CREATININE 2.2 MG/DL (0.6-1.3); GFR ESTIMATE (CALCULATED) 24 mL/min/; GLUCOSE 180 mg/dL (70-99); POTASSIUM 4.9 MEQ/L (3.7-5.4); SODIUM 141 MEQ/L (136-147); TOTAL BILIRUBIN 0.9 MG/DL (0.0-1.0); TOTAL PROTEIN 6.3 G/DL (6.4-8.3); UREA NITROGEN (BUN) 33 mg/dL (9-23)
[2018-03-07 14:24] LABS: HEMATOCRIT 22.8 % (36.0-46.0); HEMOGLOBIN 6.9 G/DL (11.9-15.5); MCV 88.4 FL (83-99)
[2018-03-07 21:23] LABS: IMM.RETIC FRACTION 29.5 % (3-19); RETIC HGB EQUIVALENT 21.9 (28-36)
[2018-03-07 21:35] LABS: IRON 31 MCG/DL (35-150); TRANSFERRIN (TIBC) 373.3 mg/dL (215-380); TRANSFERRIN SATUR. 8 % (20-55)
[2018-03-07 21:39] LABS: PLAT.SUFFICIENCY DECREASED
[2018-03-07 21:40] LABS: HEMATOCRIT 23.6 % (36.0-46.0); HEMOGLOBIN 6.9 G/DL (11.9-15.5); MCH 25.8 PG (29.0-34.0); MCHC 29.2 G/DL (30.0-36.0); MCV 88.4 FL (83-99); PLATELET COUNT 42 K/uL (156-360); RBC DIS.WIDTH-CV 14.9 % (11.8-14.6); RBC DIS.WIDTH-SD 48.2 % (39-53); RED BLOOD COUNT 2.67 M/uL (3.80-5.20); WHITE BLOOD COUNT 1.8 K/uL (4.1-10.2)
[2018-03-07 22:41] LABS: FERRITIN 11 NG/ML (10-291)
[2018-03-07 23:06] LABS: LACTATE DEHYDROGENASE 256 IU/L (20-246)
[2018-03-08] VITALS (12 sets, daily range): BP systolic 140–186; BP diastolic 62–77
[2018-03-08 06:04] LABS: HEMATOCRIT 25.1 % (36.0-46.0); HEMOGLOBIN 7.5 G/DL (11.9-15.5); MCH 26.5 PG (29.0-34.0); MCHC 29.9 G/DL (30.0-36.0); MCV 88.7 FL (83-99); PLATELET COUNT 54 K/uL (156-360); RBC DIS.WIDTH-CV 14.7 % (11.8-14.6); RBC DIS.WIDTH-SD 47.3 % (39-53); RED BLOOD COUNT 2.83 M/uL (3.80-5.20)
[2018-03-08 12:03] LABS: STOOL OCCULT BLD 1ST SPECIMEN POSITIVE
[2018-03-08 14:05] LABS: C DIFF TOXIN POSITIVE (NEGATIVE)
[2018-03-08 15:23] LABS: FOLIC ACID (FOLATE) > 22.0 NG/ML (5.0-22.0)
[2018-03-08 16:50] LABS: HEMATOCRIT 31.3 % (36.0-46.0); MCH 27.3 PG (29.0-34.0); MCHC 30.4 G/DL (30.0-36.0); MCV 89.9 FL (83-99); NRBC (%) 0.6 /100 WBC (0-0); PLATELET COUNT 56 K/uL (156-360); RBC DIS.WIDTH-CV 14.8 % (11.8-14.6); RBC DIS.WIDTH-SD 48.1 % (39-53); WHITE BLOOD COUNT 3.1 K/uL (4.1-10.2)
[2018-03-08 16:52] LABS: HEMOGLOBIN 9.5 G/DL (11.9-15.5); RED BLOOD COUNT 3.48 M/uL (3.80-5.20)
[2018-03-08 21:12] LABS: HEMATOCRIT 28.6 % (36.0-46.0); HEMOGLOBIN 8.9 G/DL (11.9-15.5); MCH 27.6 PG (29.0-34.0); MCHC 31.1 G/DL (30.0-36.0); MCV 88.5 FL (83-99); PLATELET COUNT 56 K/uL (156-360); RBC DIS.WIDTH-CV 14.4 % (11.8-14.6); RBC DIS.WIDTH-SD 46.4 % (39-53); RED BLOOD COUNT 3.23 M/uL (3.80-5.20); WHITE BLOOD COUNT 2.1 K/uL (4.1-10.2)
[2018-03-09 03:50] VITALS: BP 143/62
[2018-03-09 06:28] LABS: HEMATOCRIT 27.3 % (36.0-46.0); HEMOGLOBIN 8.3 G/DL (11.9-15.5); MCH 26.9 PG (29.0-34.0); MCHC 30.4 G/DL (30.0-36.0); MCV 88.6 FL (83-99); RBC DIS.WIDTH-CV 14.6 % (11.8-14.6); RBC DIS.WIDTH-SD 47.4 % (39-53); RED BLOOD COUNT 3.08 M/uL (3.80-5.20)
[2018-03-09 06:33] LABS: CHLORIDE 108 MEQ/L (99-109); CREATININE 1.8 MG/DL (0.6-1.3); GFR ESTIMATE (CALCULATED) 30 mL/min/; GLUCOSE 189 mg/dL (70-99); POTASSIUM 4.4 MEQ/L (3.7-5.4); SODIUM 138 MEQ/L (136-147); UREA NITROGEN (BUN) 27 mg/dL (9-23)
[2018-03-09 06:43] LABS: BASOPHIL (%) 1.5 % (0-1); EOSINOPHIL (%) 17.4 % (0-5); EOSINOPHIL COUNT 0.4 K/uL (0-0.3); IMM.PLATELET FRACTION 2.3 (1-7); IMMATURE GRANULOCYTE (%) 0.5 % (0.0-0.7); LYMPHOCYTE (%) 13.4 % (15-42); LYMPHOCYTE COUNT 0.3 K/uL (1.0-2.8); MONOCYTE COUNT 0.2 K/uL (0-0.8); NEUTROPHIL (%) 59.2 % (45-76); NEUTROPHIL COUNT 1.2 K/uL (1.8-6.4); PLAT.SUFFICIENCY VERY DECREASED
[2018-03-09 06:48] LABS: PLATELET COUNT 39 K/uL (156-360)
[2018-03-09 07:49] VITALS: BP 174/74
[2018-03-09 11:42] VITALS: BP 183/76
[2018-03-09 15:19] VITALS: BP 149/66
[2018-03-09 18:20] LABS: HEMATOCRIT 30.4 % (36.0-46.0); HEMOGLOBIN 9.2 G/DL (11.9-15.5); MCH 26.9 PG (29.0-34.0); MCHC 30.3 G/DL (30.0-36.0); MCV 88.9 FL (83-99); RBC DIS.WIDTH-CV 14.4 % (11.8-14.6); RED BLOOD COUNT 3.42 M/uL (3.80-5.20); WHITE BLOOD COUNT 2.3 K/uL (4.1-10.2)
[2018-03-09 19:57] VITALS: BP 159/70
[2018-03-09 20:30] LABS: HEMATOLOGY COMMENT 1 SN; IMM.PLATELET FRACTION 4.3 (1-7); PLAT.SUFFICIENCY VERY DECREASED; PLATELET COUNT 49 K/uL (156-360)
[2018-03-09 23:49] VITALS: BP 158/73
[2018-03-10 02:29] LABS: HEMOGLOBIN 8.3 G/DL (11.9-15.5); MCHC 31.9 G/DL (30.0-36.0); MCV 87.8 FL (83-99); RBC DIS.WIDTH-CV 14.2 % (11.8-14.6); RBC DIS.WIDTH-SD 45.5 % (39-53); RED BLOOD COUNT 2.96 M/uL (3.80-5.20); WHITE BLOOD COUNT 2.1 K/uL (4.1-10.2)
[2018-03-10 03:14] LABS: IMM.PLATELET FRACTION 3.2 (1-7); PLAT.SUFFICIENCY VERY DECREASED; PLATELET COUNT 39 K/uL (156-360)
[2018-03-10 07:49] VITALS: BP 170/72
[2018-03-10 08:06] LABS: BASOPHIL (%) 1.1 % (0-1); EOSINOPHIL (%) 15.7 % (0-5); EOSINOPHIL COUNT 0.3 K/uL (0-0.3); HEMATOCRIT 27.1 % (36.0-46.0); HEMOGLOBIN 8.4 G/DL (11.9-15.5); LYMPHOCYTE (%) 15.2 % (15-42); LYMPHOCYTE COUNT 0.3 K/uL (1.0-2.8); MCH 27.5 PG (29.0-34.0); MCV 88.9 FL (83-99); MONOCYTE COUNT 0.2 K/uL (0-0.8); NEUTROPHIL COUNT 1.1 K/uL (1.8-6.4); RBC DIS.WIDTH-CV 14.6 % (11.8-14.6); RBC DIS.WIDTH-SD 46.3 % (39-53); RED BLOOD COUNT 3.05 M/uL (3.80-5.20); WHITE BLOOD COUNT 1.8 K/uL (4.1-10.2)
[2018-03-10 08:25] LABS: IMM.PLATELET FRACTION 2.8 (1-7); PLAT.SUFFICIENCY VERY DECREASED; PLATELET COUNT 39 K/uL (156-360)
[2018-03-10 11:40] VITALS: BP 187/72
[2018-03-10] MEDS ORDERED: VANCOMYCIN125 MG/2.5 PO (11:49)
[2018-03-10 12:11] LABS: HEMATOCRIT 26.8 % (36.0-46.0); HEMOGLOBIN 8.2 G/DL (11.9-15.5); MCH 27.3 PG (29.0-34.0); MCHC 30.6 G/DL (30.0-36.0); MCV 89.3 FL (83-99); RBC DIS.WIDTH-CV 14.6 % (11.8-14.6); RBC DIS.WIDTH-SD 47.2 % (39-53); WHITE BLOOD COUNT 1.8 K/uL (4.1-10.2)
[2018-03-10 12:31] LABS: IMM.PLATELET FRACTION 2.9 (1-7); PLAT.SUFFICIENCY VERY DECREASED; PLATELET COUNT 33 K/uL (156-360)
== END 2018-03-10 14:05 | disposition home or self-care (01) | DRG 372 ==
LOC: EME 17:42 → 2EAST 22:18 → EDOF 22:18 → ENRESERV 22:22 → CANRESERV 22:22 → ENRESERV 23:25 → 2EAST 03-07 01:24
PROVIDERS: Emergency Medicine; Hospitalist; Internal Medicine; Specialist
PROC: 30233N1 Transfusion of Nonautologous Red Blood Cells into Peripheral Vein, Percutaneous Approach (ICD-10-PCS; principal; 2018-03-06)
DX: A04.72 Enterocolitis due to Clostridium difficile, not specified as recurrent (principal); D61.818 Other pancytopenia; K76.6 Portal hypertension; Q27.30 Arteriovenous malformation, site unspecified; I85.10 Secondary esophageal varices without bleeding; E11.65 Type 2 diabetes mellitus with hyperglycemia; I50.9 Heart failure, unspecified; R18.8 Other ascites; E11.22 Type 2 diabetes mellitus with diabetic chronic kidney disease; I13.0 Hypertensive heart and chronic kidney disease with heart failure and stage 1 through stage 4 chronic kidney disease, or unspecified chronic kidney disease; K72.10 Chronic hepatic failure without coma; N18.3 Chronic kidney disease, stage 3 (moderate); K74.69 Other cirrhosis of liver; K31.89 Other diseases of stomach and duodenum; E78.5 Hyperlipidemia, unspecified; E03.9 Hypothyroidism, unspecified; Z95.0 Presence of cardiac pacemaker; I25.2 Old myocardial infarction; Z87.442 Personal history of urinary calculi; M19.90 Unspecified osteoarthritis, unspecified site; Z91.19 Patient's noncompliance with other medical treatment and regimen; E66.9 Obesity, unspecified; Z68.27 Body mass index [BMI] 27.0-27.9, adult; D50.0 Iron deficiency anemia secondary to blood loss (chronic); Z85.028 Personal history of other malignant neoplasm of stomach; K21.9 Gastro-esophageal reflux disease without esophagitis; J45.909 Unspecified asthma, uncomplicated; I86.8 Varicose veins of other specified sites
CPT/HCPCS: 36415; 74176; 76705; 80048; 80048 91; 80053; 80069; 80076; 82140; 82272; 82607; 82728; 82746; 82948; 83010 90; 83540; 83615; 83735; 83970; 84466; 85014; 85018; 85025; 85025 91; 85027; 85046; 85610; 86850; 86870; 86900; 86901; 86905; 86920; 87493; 99281; 99285; C9113; J0696; J1815; J2354; J7030; P9016; Q0177